=== PATIENT | female | born 1955 | race Caucasian/White ===

== ENCOUNTER 2023-05-06 11:12 | Outpatient (AMB) | payer OTHER, SELFPAY ==
--- NOTE | 2023-05-06 11:32 | HO.SPINEOV ---
Intake Intake Visit Reasons: discuss sx Intake Note: Ms. Ordaz is here today to discuss surgical options. Database Marketing Manager Required: No Allergies codeine Allergy (Unknown, Verified 08/01/16 00:00) iodine Allergy (Unknown, Verified 08/01/16 00:00) Latex Gloves Allergy (Unknown, Uncoded 08/01/16 00:00) seafood Allergy (Unknown, Uncoded 08/01/16 00:00) Assessment & Plan Assessment & Plan (1) Ulnar neuropathy at elbow of left upper extremity: Code(s): G56.22 - Lesion of ulnar nerve, left upper limb Plan Dear Colleague Thank you for referring Enriqueta Ordaz to the office today with a chief complaint of left elbow and hand pain. HPI: This 67-year-old female with MS was previously seen in my old practice, where I diagnosed her with a left ulnar nerve compression confirmed with EMG. Offered her a ulnar nerve decompression. She decided to wait due to the limitations she has with her MS. She returns to my clinic at [place] stating that her symptoms have significantly worsened. Pain radiates from her elbow down to the 4th and 5th digits and the 4th and 5th digits are now numb. On exam: Tinel is negative over the left ulnar groove. There is hypoesthesia of the 4th and 5th digit on the left side. Impression/Plan: This patient is suffering from a progressive ulnar neuropathy from compression at the sulcus ulnaris. I offered her a decompression of the left ulnar nerve. She is scheduled for 06/11/2023. Thank you for allowing me to participate in your patients care. total time spent was 30 minutes in counseling ,coordination of plan, and surgical decision making. Domingo Juárez MD, PhD Spine Fellowship Trained Neurosurgeon Director, [facility] Coding Level of Care Code New Pt Level 3 (61576) Diagnoses Ulnar neuropathy at elbow of left upper extremity G56.22
== END 2023-05-06 12:05 | disposition home or self-care (01) ==
PROVIDERS: PCP Internal Medicine; Visit Provider Neurological Surgery
DX: G56.22 Lesion of ulnar nerve, left upper limb (principal)
CPT/HCPCS: 99203

== ENCOUNTER → 2023-05-06 11:12 | Outpatient (BNVA) | payer OTHER, SELFPAY | PROVIDERS: PCP Internal Medicine; Visit Provider Neurological Surgery ==

== ENCOUNTER 2023-06-11 12:02 | Day surgery (SDC) | payer OTHER, SELFPAY ==
[2023-06-02 15:21] VITALS: BMI 35.9
--- NOTE | 2023-06-04 12:14 | P.CONAN_ITS ---
Documented by User: Meredith Muñoz NP 06/04/23 12:18 HPI - Anesthesia Eval Consult details Narrative: 67yo F for Left Ulna Nerve Decompression MS - mostly wheelchair bound, stand/pivot *DNI* PONV Hx PE, no OAC Stable at last PCP visit 03/2023 Pt was not seen in PAT. Telephone assessment only. PMFSH Active Problems Active Problems: All Active Problems (Updated 06/02/23 @ 15:27 by Apoorva Tinajero RN) Ulnar neuropathy at elbow of left upper extremity (Acute) Past Medical History Medical History History of postoperative nausea and vomiting Hepatitis A Sleep apnea Psoriasis Depression Pulmonary embolism Ulnar nerve compression Multiple sclerosis Elevated cholesterol HTN (hypertension) Surgical History Surgical History Hx of rotator cuff surgery History of surgery Hx of hysterectomy Hx of lumbar discectomy Hx of hand surgery Social History Social History Are you a primary care tech to a significant other at home: No Do you presently have visiting nurse or 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 If so, by whom?: No Are you DNR?: No Advance Directives Information Provided: Yes (advised to bring copies DOS) Advance Directives on File: No Recently lost weight without trying: No Eating poorly because of decreased appetite: No Nutrition Risks: No Nutritional Risk Poor oral hygiene: No Meds Allergies Allergy/AdvReac Type Severity Reaction Status Date / Time iodine Allergy Severe Anaphylaxis Verified 06/11/23 13:13 seafood Allergy Severe Anaphylaxis Verified 06/11/23 13:13 codeine Allergy Intermediate faint/shortness Verified 06/11/23 13:13 of breath hydrocodone Allergy Intermediate faint/shortness Verified 06/11/23 13:13 of breath Latex, Natural Rubber Allergy Intermediate Rash Verified 06/11/23 13:13 measles, mumps, and rubella Allergy Unknown Unknown Verified 06/11/23 13:13 vaccine povidone-iodine Allergy Unknown Blister Verified 06/11/23 13:13 [From Betadine] Home Medications Medication Instructions Recorded Confirmed Last Taken Type amlodipine 10 mg tablet 10 mg PO DAILY 06/02/23 06/11/23 06/11/23 History atorvastatin 40 mg tablet 40 mg PO DAILY 06/02/23 06/11/23 06/10/23 History irbesartan 300 mg tablet 300 mg PO DAILY 06/02/23 06/11/23 06/10/23 History sertraline 100 mg tablet 100 mg PO DAILY 06/02/23 06/11/23 06/10/23 History spironolactone 25 mg tablet 25 mg PO BID 06/02/23 06/11/23 06/10/23 History tralokinumab-ldrm 150 mg/mL 300 mg subcut Q2W 06/02/23 06/11/23 05/29/23 History subcutaneous syringe (Adbry) Exam Exam Date and Time: June 04, 2023 1214 Height,Weight and Vital Signs: Height 5 ft 10 in Weight 113.398 kg Assessment and Plan Assessment Anesthesia Assessment: Chart Reviewed Documented by User: Cassius Levine MD 06/11/23 15:02 HPI - Anesthesia Eval Consult details Narrative: 67yo F for Left Ulna Nerve Decompression MS - mostly wheelchair bound, stand/pivot weakness LE , right more than left . Back pain *DNI* PONV Hx PE, no OAC Stable at last PCP visit 03/2023 Pt was not seen in PAT. Telephone assessment only. [facility] Past Medical History Medical History History of postoperative nausea and vomiting Hepatitis A Sleep apnea Psoriasis Depression Pulmonary embolism Ulnar nerve compression Multiple sclerosis Elevated cholesterol HTN (hypertension) Family History Family history of problems with anesthesia: No Surgical History Surgical History Hx of rotator cuff surgery History of surgery Hx of hysterectomy Hx of lumbar discectomy Hx of hand surgery History of Problems with Anesthesia: No Social History Social History Are you a primary care tech to a significant other at home: No Do you presently have visiting nurse or 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 If so, by whom?: No Are you DNR?: No Advance Directives Information Provided: Yes (advised to bring copies DOS) Advance Directives on File: No Recently lost weight without trying: No Eating poorly because of decreased appetite: No Nutrition Risks: No Nutritional Risk Poor oral hygiene: No Meds Allergies Allergy/AdvReac Type Severity Reaction Status Date / Time iodine Allergy Severe Anaphylaxis Verified 06/11/23 13:13 seafood Allergy Severe Anaphylaxis Verified 06/11/23 13:13 codeine Allergy Intermediate faint/shortness Verified 06/11/23 13:13 of breath hydrocodone Allergy Intermediate faint/shortness Verified 06/11/23 13:13 of breath Latex, Natural Rubber Allergy Intermediate Rash Verified 06/11/23 13:13 measles, mumps, and rubella Allergy Unknown Unknown Verified 06/11/23 13:13 vaccine povidone-iodine Allergy Unknown Blister Verified 06/11/23 13:13 [From Betadine] Home Medications Medication Instructions Recorded Confirmed Last Taken Type amlodipine 10 mg tablet 10 mg PO DAILY 06/02/23 06/11/23 06/11/23 History atorvastatin 40 mg tablet 40 mg PO DAILY 06/02/23 06/11/23 06/10/23 History irbesartan 300 mg tablet 300 mg PO DAILY 06/02/23 06/11/23 06/10/23 History sertraline 100 mg tablet 100 mg PO DAILY 06/02/23 06/11/23 06/10/23 History spironolactone 25 mg tablet 25 mg PO BID 06/02/23 06/11/23 06/10/23 History tralokinumab-ldrm 150 mg/mL 300 mg subcut Q2W 06/02/23 06/11/23 05/29/23 History subcutaneous syringe (Adbry) Exam Airway Mallampati Class: III Loose/Missing/Broken Teeth: Yes Assessment and Plan Assessment Anesthesia Assessment: Anesthesia Plan Discussed Final Anesthetic Review Family History of Problems with Anesthesia: No History of Problems with Anesthesia: No NPO: Yes ASA Class: IV Final Preanesthetic Review: Meds/Allgs Chart Reviewed, Consent Obtained/Reviewed and Anes Risks/Benef Reviewed Patient Risk: Intermediate Procedure Risk: Intermediate Anesthetic Plan Anesthetic Plan: MAC: and Agree w/ Assess. and Plan Disposition: Standard PACU
--- NOTE | 2023-06-11 07:05 | P.HPSUR_ITS ---
Pre-Procedural Eval Section A Date of Service: 06/11/23 Section B Chief Complaint: Lesion of ulnar nerve, left upper limb Allergies: Allergies Allergy/AdvReac Type Severity Reaction Status Date / Time iodine Allergy Severe Anaphylaxis Verified 06/04/23 09:22 seafood Allergy Severe Anaphylaxis Verified 06/04/23 09:22 codeine Allergy Intermediate faint/shortness Verified 06/04/23 09:22 of breath hydrocodone Allergy Intermediate faint/shortness Verified 06/04/23 09:22 of breath Latex, Natural Rubber Allergy Intermediate Rash Verified 06/04/23 09:22 measles, mumps, and rubella Allergy Unknown Unknown Verified 06/04/23 09:22 vaccine povidone-iodine Allergy Unknown Unknown Verified 06/04/23 09:22 [From Betadine] Review of Systems Sugical H&P ROS: Negative: Constitution, Cardiovascular, Respiratory, Neurological, Psychiatric, Hem-Onc, Allergic/Immunologic, Gastrointestinal, Genitourinary, Musculoskeletal, Integumentary, Endocrine and Eyes /Ears/Nose/Throat Exam Surgical H&P Exam: Not Evaluated: HEENT, Not Evaluated: Heart, Not Evaluated: Lungs, Not Evaluated: Extremities, Not Evaluated: Abdomen, Not Evaluated: Skin and Not Evaluated: Neurological Plan Diagnosis/Plan: Unchanged I have reviewed the history and physical and performed a pertinent physical examination on my patient. No changes have occurred unless specified. plan remains the same, left-sided ulna nerve decompression. Time Spent With Patient Time: Total time managing care of this patient today _10___ minutes.
[2023-06-11] MEDS: Lactated Ringers 1,000 ML 100 ML IVCONT (13:23)
[2023-06-11] MEDS: Gabapentin 300 MG CAPSULE PO (13:29)
[2023-06-11] MEDS: methocarbamoL 750 MG TABLET PO (13:29)
[2023-06-11 13:33] VITALS: BP 150/68; PULSE 59; RESP 16; TEMP 36.3; O2SAT 98
--- NOTE | 2023-06-11 13:36 | PC.NURSE ---
Allergy interaction noted for Robaxin and Gabapentin related to Iodine allergy. Per Gretchen [facility] ok to give medications. Dr. Levine notified.
--- NOTE | 2023-06-11 14:37 | PM.DS ---
DS: Providers Provider Date of Service: 06/11/23 Primary care physician: Marlin Valdez MD DS: Summary Time Attestation Discharge coordination time: Less than 30 minutes Quality: Safe Use of Opioids Does Pt have an Active Cancer Diagnosis on the Problem List?: No Quality: Stroke Does the patient have a stroke diagnosis?: No Physical Exam Vital Signs: Vital Signs: Last Vital Signs Temp 97.4 F 06/11/23 13:33 Pulse 59 06/11/23 13:33 Resp 16 06/11/23 13:33 BP 150/68 H 06/11/23 13:33 Pulse Ox 98 06/11/23 13:33 O2 Del Method Room Air 06/11/23 13:33 BMI result Body Mass Index 35.9 Discharge Plan Discharge Patient Disposition: Home, Self-Care Referrals: Marlin Valdez MD [Primary Care Provider] - 1 Week Discharge Medications: New tramadol 50 mg tablet 50 mg PO Q6H PRN (Reason: MODERATE-SEVERE PAIN) Qty: 20 0RF Continued atorvastatin 40 mg tablet 40 mg PO DAILY sertraline 100 mg tablet 100 mg PO DAILY amlodipine 10 mg tablet 10 mg PO DAILY irbesartan 300 mg tablet 300 mg PO DAILY Adbry 150 mg/mL syringe 300 mg subcut Q2W spironolactone 25 mg tablet 25 mg PO BID Discharge Orders: Discharge Order (Routine); Ordered 06/11/23 Ordered By: Wild Story Diet: Advance to usual diet Activity on Discharge: As tolerated Activity Restrictions/Additional Instructions: YOU MAY REMOVE YOUR DAVID WRAP ON POST OP DAY 3, WELL THE DRESSING UNDERNEATH .IT YOU CAN USE YOUR ARM MUCH YOU LIKE, HOWEVER, PLEASE AVOID STRAINING OR HEAVY LIFTING. IT WILL HELP SWELLING IN YOUR ELBOW TO KEEP IT ELEVATED WHEN YOU ARE NOT USING IT. YOU CAN SHOWER ON POST OP DAY 1, BUT PLEASE KEEP WOUND DRY. YOU CAN DRIVE WHEN YOU FEEL COMFORTABLE AND ARE OFF NARCOTICS. IF YOU EXPERIENCE ANY SIGNS OF INFECTION SUCH FEVER, CHILLS OR REDNESS/DISCHARGE FROM YOUR WOUND, PLEASE CALL OFFICE RIGHT AWAY PLEASE CALL THE OFFICE FOR A FOLLOW UP IN 2-3 WEEKS [phone]
[2023-06-11 14:41] VITALS: BP 138/71; PULSE 63; RESP 16; TEMP 36.9; O2SAT 96
--- NOTE | 2023-06-11 14:47 | W.PM.OPN ---
Operative Note Operative Note Date of Service: 06/11/23 Narrative: Diagnosis: left ulnar neuropathy Procedure: left ulnar nerve decompression Surgeon: Domingo Juárez MD PhD Description procedure: This 67-year-old female Is suffering from a left ulnar neuropathy. The patient was offered a decompression of the ulnar nerve. The procedure complications were explained. The patient was consented. He was brought to the operating room, where moderate sedation was applied. Prepping and draping was done followed by time-out. Marcaine was injected. a semicircular incision was made. The dissection was carried on until the ligament was encountered. The ligament was opened and dissected sharply to decompress the underlying ulnar nerve proximally and distally. Significant compression was present. Hemostasis was done. The incision was closed with a 3-0 Vicryl for the subcu toes and subdermal layer.. A compressive DAVID wrap was used for hemostasis. All sponge and needle counts were correct. Patient was transported to the recovery room. Anesthesia: Moderate sedation and local anesthetic Blood loss: Minimal Complications: None Disposition: Discharge home
[2023-06-11 14:55] VITALS: BP 167/80; PULSE 57; RESP 16; O2SAT 96
[2023-06-11] MEDS: Ondansetron ODT 4 MG TAB.RAPDIS TRANSLINGU (14:59)
[2023-06-11 15:10] VITALS: BP 155/87; PULSE 58; RESP 16; TEMP 36.1; O2SAT 95
== END 2023-06-11 15:25 | disposition home or self-care (01) ==
PROVIDERS: PCP Internal Medicine; Visit Provider Neurological Surgery
PROC: (CPT 64718; principal; 2023-06-11 14:20)
DX: G56.22 Lesion of ulnar nerve, left upper limb (principal); M25.522 Pain in left elbow; M79.642 Pain in left hand; R20.1 Hypoesthesia of skin; G35 Multiple sclerosis; Z99.3 Dependence on wheelchair; I10 Essential (primary) hypertension; E78.00 Pure hypercholesterolemia, unspecified; G47.33 Obstructive sleep apnea (adult) (pediatric); Z79.899 Other long term (current) drug therapy; Z86.711 Personal history of pulmonary embolism; Z88.5 Allergy status to narcotic agent; Z91.040 Latex allergy status; Z91.041 Radiographic dye allergy status; Z87.891 Personal history of nicotine dependence
CPT/HCPCS: 64718; J0131; J0690; J2250

== ENCOUNTER → 2023-06-11 12:02 | Outpatient (BNV) | payer OTHER, SELFPAY | PROVIDERS: PCP Internal Medicine; Visit Provider Physician Assistant | DX: G56.22 Lesion of ulnar nerve, left upper limb (principal) | CPT/HCPCS: 64718; 99499 ==

== ENCOUNTER 2023-07-01 10:31 | Outpatient (AMB) | payer OTHER, SELFPAY ==
--- NOTE | 2023-07-01 10:42 | HO.SPINEOV ---
Intake Intake Visit Reasons: 1st post op Intake Note: Mrs. Sushma Bro is here today for her 1st post-op visit. Proj Engineer Required: No Allergies iodine Allergy (Severe, Verified 06/11/23 13:13) Anaphylaxis seafood Allergy (Severe, Verified 06/11/23 13:13) Anaphylaxis codeine Allergy (Intermediate, Verified 06/11/23 13:13) faint/shortness of breath hydrocodone Allergy (Intermediate, Verified 06/11/23 13:13) faint/shortness of breath Latex, Natural Rubber Allergy (Intermediate, Verified 06/11/23 13:13) Rash measles, mumps, and rubella vaccine Allergy (Unknown, Verified 06/11/23 13:13) Unknown povidone-iodine [From Betadine] Allergy (Unknown, Verified 06/11/23 13:13) Blister Assessment & Plan Assessment & Plan (1) Ulnar neuropathy at elbow of left upper extremity: Code(s): G56.22 - Lesion of ulnar nerve, left upper limb (2) S/P decompression of ulnar nerve: Code(s): Z98.890 - Other specified postprocedural states Plan Procedure: Left ulnar nerve decompression Enriqueta comes in today for her 1st postoperative visit. She reports she is very satisfied with the surgery and feels much better than she did preoperatively. She still reports some weakness of her left hand/arm, but reports that his overall better. She inquired today about to return to activity instructions, and reported that she would like to be able to try and pull/push the wheels on her wheelchair again. She was encouraged to try this activity, but to be mindful of her pain/inflammation in to not overdo it. No neurological deficit. Patient is mobile with the use of a wheelchair. Incision site is closed, well healing, with no signs of drainage. We will follow-up with the patient in 6 weeks for her 2nd postoperative visit in order to re-evaluate her left arm function. Wild Juárez MD,PhD [facility] Coding Level of Care Code Global (02562) Diagnoses Ulnar neuropathy at elbow of left upper extremity G56.22 S/P decompression of ulnar nerve Z98.890
== END 2023-07-01 11:11 | disposition home or self-care (01) ==
PROVIDERS: PCP Internal Medicine; Visit Provider Physician Assistant
DX: G56.22 Lesion of ulnar nerve, left upper limb (principal); Z98.890 Other specified postprocedural states
CPT/HCPCS: 99024

== ENCOUNTER → 2023-07-01 10:31 | Outpatient (BNVA) | payer OTHER, SELFPAY | PROVIDERS: PCP Internal Medicine; Visit Provider Physician Assistant ==

== ENCOUNTER 2023-08-12 10:36 | Outpatient (AMB) | payer OTHER, SELFPAY ==
--- NOTE | 2023-08-12 10:45 | MHC.OFFVIS ---
Intake Intake Visit Reasons: 2nd post op Intake Note: PT here for 2nd post op Senior Software Development Manager Required: No Allergies iodine Allergy (Severe, Verified 06/11/23 13:13) Anaphylaxis seafood Allergy (Severe, Verified 06/11/23 13:13) Anaphylaxis codeine Allergy (Intermediate, Verified 06/11/23 13:13) faint/shortness of breath hydrocodone Allergy (Intermediate, Verified 06/11/23 13:13) faint/shortness of breath Latex, Natural Rubber Allergy (Intermediate, Verified 06/11/23 13:13) Rash measles, mumps, and rubella vaccine Allergy (Unknown, Verified 06/11/23 13:13) Unknown povidone-iodine [From Betadine] Allergy (Unknown, Verified 06/11/23 13:13) Blister [facility] Medical History History of postoperative nausea and vomiting Hepatitis A Sleep apnea Psoriasis Depression Pulmonary embolism Ulnar nerve compression Multiple sclerosis Elevated cholesterol HTN (hypertension) Surgical History (Updated 07/01/23 @ 11:12 by LEONEL Mccabe) Hx of rotator cuff surgery History of surgery Hx of hysterectomy Hx of lumbar discectomy Hx of hand surgery Social History Are you a primary care coordination manager to a significant other at home: No Do you presently have 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 She reports she is very satisfied with the surgery and feels much better than she did pre-operatively. She reports he has good articulation with her left hand. She is able to complete the majority of her ADLs. She has no other significant concerns or complaints at this time. She did inquire about having a shunt placed for hydrocephalus, which we discussed with Dr. Juárez. He ended up referring her to [facility] in [place] to have this completed. No neurological deficits, hand portfolio management marketing strength is equal on both sides. Patient is able to ambulate well, rises from a seated position without difficulty. Incision sites are closed, well healing, with no signs of drainage. No need to follow up routinely. The patient may call us if she needs to see us in the future. Wild Juárez MD,PhD [facility] Coding Level of Care Code Global (74187) Diagnoses S/P decompression of ulnar nerve Z98.890
== END 2023-08-12 11:20 | disposition home or self-care (01) ==
PROVIDERS: PCP Internal Medicine; Visit Provider Physician Assistant
DX: Z98.890 Other specified postprocedural states (principal)
CPT/HCPCS: 99024

== ENCOUNTER → 2023-08-12 10:36 | Outpatient (BNVA) | payer OTHER, SELFPAY | PROVIDERS: PCP Internal Medicine; Visit Provider Physician Assistant | DX: Z48.811 Encounter for surgical aftercare following surgery on the nervous system (principal); Z98.890 Other specified postprocedural states | CPT/HCPCS: 99212 ==

== ENCOUNTER 2025-04-07 14:42 | Outpatient (AMB) | payer OTHER, SELFPAY ==
--- OUTSIDE RECORDS SUMMARY | 2025-04-07 14:44 | XMS_ITS | Encounter Summary ---
Author Organization [facility] Address [address] [place] [phone] Phone Care Team Providers Care Blindstitch Hemmer Name Role Phone Marlin Valdez MD Primary Care Pr ovid Reason for Referral * Occupational Therapy (Routine) - Closed Specialty Diagnoses / Procedures Referred By Mirela heart Referred To Contact Occupational Therapy Diagnoses Encounter for rehabilitation System, Provider Not In, [facility] [id number] [place] [address] [address] [place] [address] Phone: tel: Referral ID Status Reason Start Date Expiration Date Visits Re quested Visits Authorized [id number] Closed 03/08/2018 08/09/2018 9 9 Encounter Details Date Type Department Care Team (Latest Contact Info) Description 03/08/2018 Transcribe Orders [facility] [address] [place] [address] Marlin Valdez MD [address] [place] [phone] Encounter for rehabilitation (Primary Dx) Social History Tobacco Use Types Packs/Day Years Used Date Smoking Tobacco: Former Comments Unknown Sex and Gender Information Value Date Recorded Sex Assigned at Not on file Legal Sex Female 5:44 PM EST Gender Identity Not on file Sexual Orientation Not on file documented as of this encounter Plan of Treatment Scheduled Referrals Name Type Priority Associated Diagnoses Orde r Schedule Ambulatory referral to [facility] Occupational Therapy Outpatient Referral Routine Encounter for rehabilitation Ordered: 03/08/2018 documented as of this encounter Visit Diagnoses Diagnosis Encounter for rehabilitation- Primary documented in this encounter Care Teams Blindstitch Hemmer Relationship Specialty Start Date End Date Marlin Valdez MD [address] [place] [address] PCP - General Internal Medicine 12/16/17 documented as of this encounter Additional Source Comments The information contained in this document represents components of the legal health record. It is not the complete legal health record.[facility]
--- OUTSIDE RECORDS SUMMARY | 2025-04-07 14:44 | XMS_ITS | Clinical Summary ---
Author Organization Patient Business Ser [facility] Address [address] [place] [address] Care Team Providers Care Spray Worker Name Role Phone Marlin Valdez MD Primary Care Prov ider Allergies Active Allergy Reactions Criticality Noted Date Comments Codeine 05/04/2013 Other reaction(s): Other (See Comments) swelling of the throat Faint & sob Fish Oil High 03/05/2016 Seafood Throat closes up Hydrocodone-Acetaminophen 03/05/2016 Faint & sob Iodine 03/05/2016 Throat closes up Latex High 09/26/2022 Severe dry rash Povidone-Iodine 01/08/2017 Prednisone Other 10/03/2019 Other reaction(s): OTHER Shellfish Containing Products Anaphylaxis High 03/05/2016 Throat closes up Medications nystatin (MYCOSTATIN) 100,000 unit/gram powder 100,000 application. 3 Active topiramate (TOPAMAX) 50 mg tablet TAKE 2 TABLETS BY MOUTH 2 TIMES A DAY. 360 tablet 1 5 Active irbesartan (AVAPRO) 300 mg tablet TAKE 1 TABLET BY MOUTH EVERY DAY IN THE EVENING 90 tablet 1 5 Active Rinvoq 15 mg tablet extended release 24 hr 5 Active cyanocobalamin (VITAMIN B-12) 1,000 mcg/mL injection Inject 1 mL (1,000 mcg total) into the shoulder, thigh, or buttocks every 30 (thirty) days. 3 mL 1 5 05/30/20 25 Active sodium bicarbonate 650 mg tablet Take 1 tablet (650 mg total) by mouth. 5 01/22/20 26 Active NIFEdipine XL (PROCARDIA XL) 60 mg 24 hr tablet Take 1 tablet (60 mg total) by mouth 1 (one) time each day before breakfast. 90 tablet 1 5 Active EPINEPHrine (EPIPEN) 0.3 mg/0.3 mL injection Inject 0.3 mL (0.3 mg total) into the thigh if needed for anaphylaxis. Inject 0.3 mg into the muscle. Strength: 0.3 mg/0.3 mL 2 each 1 5 Active Dupixent Syringe 300 mg/2 mL syringe 4 Active ergocalciferol (Vitamin D2) 1,250 mcg (50,000 unit) capsule Active atorvastatin (LIPITOR) 40 mg tablet TAKE 1 TABLET BY MOUTH EVERY DAY 90 tablet 1 5 Active sertraline (ZOLOFT) 100 mg tablet TAKE 1 TABLET BY MOUTH 1 TIME EACH DAY. 90 tablet 1 5 Active acetaZOLAMIDE (DIAMOX) 250 mg tablet Take 1 tablet (250 mg total) by mouth 1 (one) time each day for 7 days, THEN 1 tablet (250 mg total) 2 (two) times a day. 107 each 5 05/27/20 25 Active Active Problems Problem Noted Date Diagnosed Date Familial Mediterranean fever ([facility] V24, [facility]/ [facility] V28) 03/08/2025 Low bicarbonate 02/20/2025 Elevated rheumatoid factor 02/20/2025 At high risk for injury related to fall 02/21/20 25 Multiple sclerosis (CMS/HCC V24, [facility] V28) Positive colorectal cancer screening using Colog uard test 05/17/2024 Neurogenic bladder 01/06/2024 Vitamin D deficiency 09/07/2023 Psoriasis 02/24/2023 Bilateral carpal tunnel syndrome 12/31/2021 Degenerative arthritis of lumbar spine 1 Lichen simplex chronicus 10/05/2019 Sprain of thoracic region 11/25/2018 Cervicalgia 11/25/2018 Urinary incontinence 11/16/2018 Incomplete tear of left rotator cuff 10/22/2018 Pruritus of vulva 07/26/2018 Overview (07/06/2024): Last Assessment & Plan: Yeast culture sent to rule this out as an added cause of her discomfort. Atrophy of vulva 06/22/2018 Overview (03/08/2025): Last Assessment & Plan: Can consider topical E2 at future visit following initial follow up for LS therapy. Primary hypertension 06/25/2016 Lichen sclerosus 06/25/2016 Overview (03/08/2025): Perineum Last Assessment & Plan: I discussed with Enriqueta that her symptoms are not going to lu without treatment of her lichen sclerosus, and also likely some component of contact dermatitis and neurogenic pruritis. I strongly recommended that she try tacrolimus ointment as she has previously failed topical steroid therapy. I explained this may burn, but would be important to get the skin healed and under control. I reviewed this with Shannon Levi PA-C in Dermatology who feels it is reasonable to combine this with meds she is already using. I also strongly recommended that she see Urology for consultation to see if maybe we can avoid contact irritation from incontinence by having her perform ISC. She agrees and a referral was placed again. She is aware to call our office if she does not hear about the new topical medication or from referrals for Urology within 1-2 weeks. She was also encouraged to use the Vistaril to help her with itching on the vulva given superimposed LSC will not resolve unless we break the itch scratch cycle. She agreed to try. I reviewed the importance of regular maintenance topical medication use to prevent symptoms, further scarring, and squamous cell cancer of the vulva. I also explained the importance of regular follow up to ensure she has no evidence of precancerous or cancerous changes and that she is not having side effects from her medication. I reviewed areas of application and amount of medication to use. She again voiced understanding and agreed. Edema of lower extremity 09/21/2013 Numbness 05/04/2013 Overview (07/06/2024): Numbness Pins and needles sensation 05/04/2013 Overview (07/06/2024): Tingling Tinnitus 12/09/2012 Vitamin B12 deficiency 08/26/2012 Peripheral neuropathy 07/24/2012 Contact dermatitis 06/10/2012 Overview (03/08/2025): Last Assessment & Plan: Continue to avoid irritants and apply skin barrier to prevent urine from hitting skin when incontinence and in wheelchair. Lumbar disc herniation 06/10/2012 Shoulder joint pain 11/12/2011 Constipation 11/12/2011 Epileptic seizures (CMS/[facility] V24, CMS/[facility] V28) Lichen sclerosus et atrophicus of the vulva 10/2009 Benign essential hypertension 11/15/2008 Obstructive sleep apnea 11/10/2007 Overview (07/06/2024): Sleep medicine services treatment polysomnogram 05/22/2021; weight 275 pounds; BMI 39; CPAP pressure above 14 appeared necessary in supine REM sleep to manage her FRITZ. Recommended trial of CPAP 8-20. Patient last saw Gem in pulmonology on 04/22/2021. Sleep Medicine Services indicated that they will contact the patient to arrange follow-up. Last Assessment & Plan: [facility] 6-16 cm H2O Trigeminal neuralgia 09/08/2007 Depression 09/08/2007 Excessive weight gain 09/08/2007 Irritable bowel syndrome 09/08/2007 Encounters Date Type Department Care Team Description 03/31/2025 11:00 AM EDT Telemedicine [facility] [place] [address] [facility] [address] [place] [phone] Chanda Ashley MD White matter lesion of central nervous system (Primary Dx); Vitamin D deficiency; Vitamin B12 deficiency; Numbness 03/22/2025 Telephone Lung Screening Program - [place] [address] [facility] [address] [place] [phone] Heide Keenan MA 03/08/2025 1:15 PM EDT Consult Pulmonolgy - [place] [address] [facility] [address] [place] [phone] Courtney Whitfield MD SOB (shortness of breath) (Primary Dx); Low bicarbonate; Morbid obesity (CMS/HCC V24, CMS/HCC V28); Multiple sclerosis (CMS/HCC V24, CMS/HCC V28); Obstructive sleep apnea 02/20/2025 11:15 AM EDT Office Visit Adult [address] [phone] Jordan Arredondo PA Multiple sclerosis (CMS/HCC V24, CMS/[facility] V28) (Primary Dx); Elevated rheumatoid factor; Low bicarbonate; SOB (shortness of breath); At high risk for injury related to fall 02/20/2025 Telephone Adult [address] [phone] Jordan Arredondo PA from Last 3 Months Immunizations Name Administration Dates Next Due [employer] SARS-CoV-2 COVID -19, vector-nr, rS-Ad26, preservative free 12/27/2020 Tdap Tetanus diptheria acell ular pertussis (Boostrix; Adacel) 7yo and older 01/22/2021 Surgical History Surgery Date Site/Laterality Comments HYSTERECTOMY PROCEDURE:HYSTERECTOMY KNEE SURGERY PROCEDURE:KNEE SURGERY BILATERAL OOPHORECTOMY PROCEDURE:BILATERAL OOPHORECTOMY ROTATOR CUFF REPAIR PROCEDURE:ROTATOR CUFF REPAIR APPENDECTOMY PROCEDURE:APPENDECTOMY TONSILLECTOMY PROCEDURE:TONSILLECTOMY SECTION 08/10/1984 - 08/09/1985 PROCEDURE: SECTION LUMBAR PUNCTURE 11/2022 PROCEDURE:LUMBAR PUNCTURE OTHER SURGICAL HISTORY 2011 PROCEDURE: ---- OTHER ----; COMMENT: low back L3-S1 OTHER SURGICAL HISTORY 2012 Right PROCEDURE: ---- OTHER ----; COMMENT: rotator cuff repair APPENDECTOMY 1974 PROCEDURE: HISTORICAL APPENDECTOMY OOPHORECTOMY PROCEDURE: HISTORICAL OOPHORECTOMY; COMMENT: one remvoed with hyst due to cyst, other removed 1.5 years later for large benign cyst BREAST BIOPSY PROCEDURE: BX BREAST; PERC NEEDLE CORE W/IMAG GUID BREAST SURGERY Left PROCEDURE: TX UNLISTED PROCEDURE BREAST; COMMENT: lumpectomy benign BREAST SURGERY Right PROCEDURE: TX UNLISTED PROCEDURE BREAST; COMMENT: lumpectomy x 2 HYSTERECTOMY 1984 PROCEDURE: HISTORICAL HYSTERECTOMY; COMMENT: age 28 a weeka fter childbirth for delayed hemorrhage EXPLORATORY LAPAROTOMY 1985, 2x in 1986 OTHER SURGICAL HISTORY 08/10/1984 - 08/09/1985 lower vena cava ligation Medical History Medical History Date Comments Pure hypercholesterolemia DX:Pur e hypercholesterolemia Hypertension DX:Hypertension Lichen sclerosus DX:Lichen scler osus MS (multiple sclerosis) ([facility] V24, [facility] V28) DX:MS (multiple sclerosis) ( [facility]) Psoriasis DX:Psoriasis Circumscribed scleroderma DX:Cir cumscribed scleroderma Neurogenic bladder DX:Neurogenic bladder Contact dermatitis 06/25/2016 DX:Contact de rmatitis Depression 06/25/2016 DX:Depression HTN (hypertension) 06/25/2016 DX:HTN (hyper tension) Multiple sclerosis ([facility] V24, [facility] V28) 06/25/2016 DX:Multiple sclerosis ([facility]); COMMENT: Dr. Churchill Lichen sclerosus 06/25/2016 DX:Lichen scler osus; COMMENT: Perineum DVT (deep venous thrombosis) ([facility] V24, [facility] V28) DX:DVT (deep venous thrombos is) ([facility]) Family history of diabetes m ellitus in father 10/07/2018 DX:Family history of diabete s mellitus in father Incomplete tear of left rotator cuff 10/22/2018 DX:Incomplete tear of left rotator cuff Hyperlipidemia DX:Hyperlipidemi a Positive colorectal cancer s creening using Cologuard test 05/17/2024 DX:Positive colorectal cance r screening using Cologuard test Family History Medical History Relation Name Comments Coronary artery disease Brother 1 Jeffrey Pace maker 04/2024 Diabetes Brother 2 Jeremiah Hyperlipidemia Brother 2 Jeremiah Hypertension Brother 2 Jeremiah Bladder Cancer Father Diabetes Father Heart attack Father Hypertension Father Stroke Maternal Grandfather No Known Problems Maternal Grandmother Coronary artery disease Mother Heart failure Mother Hypertension Mother Hyperthyroidism Mother Diabetes Paternal Grandfather Stroke Paternal Grandmother Diabetes Sister 1 Christy Diabetes Sister 2 Carolina insulin resista nt Breast cancer Neg Hx Colon cancer Neg Hx Multiple sclerosis Neg Hx Ovarian cancer Neg Hx Pancreatic cancer Neg Hx Prostate cancer Neg Hx Uterine cancer Neg Hx Relation Name Status Comments Brother 1 Jeffrey Alive Brother 2 Jeremiah Alive Father Maternal Grandfather Maternal Grandmother Mother (Age 92) Paternal Grandfather Paternal Grandmother Sister 1 Christy Alive Sister 2 Carolina Alive Social History Tobacco Use Types Packs/Day Years Used Date Smoking Tobacco: Former Cigarettes 1.5 60 0 08/10/1959 - 08/10/2019 Smokeless Tobacco: Never Tobacco Cessation:Counseling Given: Not Answered Alcohol Use Standard Drinks/Week Comments No 0 (1 standard drink = 0.6 oz pur e alcohol) Housing Instability Answer Date Recorde d Are you worried that in the next 2 months you may not have stable housing? No 02/19/2025 Food Access & Nutrition Answer Date Rec orded Do you have access to a vari ety of food including fruits and vegetables? Yes 02/19/2025 Access to Healthcare Answer Date Record ed Within the last 3 months, ho w many times did you visit the emergency department for your medical care? 0 02/19/2025 Health Literacy Answer Date Recorded How often do you need to hav e someone help you when you read instructions, pamphlets, or other written material from your doctor or pharmacy? Never 02/19/2025 Caregiver: How often do you need to have someone help you when you read instructions, pamphlets, or other written material from your doctor or pharmacy? Not on file 02/19/2025 Financial Risk Answer Date Recorded How hard is it for you to pa y for the very basics like food, housing, medical care, and air conditioning / heating? Somewhat hard 02/19/2025 Transportation Answer Date Recorded Has the lack of transportati on kept you from meetings, work, or from getting things needed for daily living? No Has the lack of transportati on kept you from medical appointments or from getting medications? No 02/19/2025 Social Isolation Answer Date Recorded How often do you feel lonely or isolated from th ose around you? Rarely 02/19/2025 Food Risk Answer Date Recorded Within the past 12 months we worried whether our food would run out before we got money to buy more. Never true 02/19/2025 Within the past 12 months th e food we bought just didn't last and we didn't have money to get more. Never true 02/19/2025 Dependent Care Answer Date Recorded Do you need help finding or paying for care for your loved ones. For example, children's minister or elderly care for an older adult? No 02/19/2025 Education Answer Date Recorded Do you think completing more education or training, like finishing a GED, going to college, or learning a trade, would be helpful for you? No 02/19/2025 Employment and Income Answer Date Recor ded During the last four weeks, have you been actively looking for work? No 02/19/2025 Living Situation Answer Date Recorded What is your living situation? 0 02/19/2025 Interpersonal Safety Answer Date Record ed Physical Abuse 12/21/2024 Verbal Abuse 12/21/2024 Comments No Sex and Gender Information Value Date Recorded Sex Assigned at Female 03/19/2022 2:50 PM EDT Legal Sex Female 2:41 PM EDT Gender Identity Female 03/19/2022 2:50 PM EDT Sexual Orientation Choose not to disclose 2021 2:50 PM EDT Obstetrics History Last Filed Vital Signs Vital Sign Reading Time Taken Comments Blood Pressure 124/72 03/08/2025 1:14 PM EDT Pulse 76 03/08/2025 1:14 PM EDT Temperature 36.2 C (97.2 F) 03/08/2025 1:14 PM EDT Respiratory Rate 20 03/08/2025 1:14 PM EDT Oxygen Saturation 98% 03/08/2025 1:14 PM EDT Inhaled Oxygen Concentration - - Weight 107 kg (235 lb) 03/08/2025 1:14 PM EDT Height 177.8 cm (5' 10 ) 03/08/2025 1:14 PM EDT Body Mass Index 33.72 03/08/2025 1:14 PM EDT Plan of Treatment Upcoming Encounters Date Type Department Care Team (Late st Contact Info) Description 04/14/2025 11:15 AM EDT Appointment [facility] CT Scan [address] [place] [phone] 04/26/2025 10:45 AM EDT Ancillary Procedure Pulmonolgy [facility] [address] [phone] 05/01/2025 11:00 AM EDT [facility] [address] [phone] Courtney Whitfield MD [address] [place] [phone] 06/06/2025 11:30 AM EDT Office Visit Adult Medicine [facility] [address] [place] [phone] Jordan Arredondo PA [address] [place] [address] Health Maintenance Due Date Last Done Comments Pneumococcal Vaccine: 50+ Years (1 of 1 - PCV) 2007 Zoster Vaccines (1 of 2) 2007 Breast Cancer Screening 08/11/2019 08/11/2017 Hepatitis C Screening 03/19/2022 Medicare Annual Wellness Visit 03/19/2022 Osteoporosis Screening (Bone Density Screening) 03/19/2022 COVID-19 Vaccine (2023-2 5 season) 2024 08/22/2021, 12/27/2020 Influenza Vaccine (#1) 2025 Lung Cancer Screening (Low Dose CT) 04/13/2025 04/13/2024, 04/13/2024, 04/14/2023 Hypertension/CHF/CAD Annual BMP Blood Test 10/21/2025 10/21/2024, 07/06/2024 Social Influencers of Health Screening 02/19/2026 02/19/2025 Falls Risk Assessment 02/20/2026 02/20/2025 , 12/21/2024 Colorectal Cancer Screening: Colonoscopy 12/22/2027 12/21/2024 Cholesterol Screening (Lipid Panel) 10/21/2029 10/21/2024 DTaP,Tdap,and Td Vaccines (2 - Td or Tdap) 01/22/2031 01/22/2021 RSV Immunization Adult Patients (1 - 1-dose 75+ series) 2032 Colorectal Cancer Screening: FIT-DNA (Cologuard) Discontinued 05/03/2024 Depression Screening Completed 03/31/2025 HIB Vaccines Aged Out No longer eligi ble based on patient's age to complete this topic HPV Vaccines Aged Out No longer eligi ble based on patient's age to complete this topic Hepatitis A Vaccines Aged Out No long er eligible based on patient's age to complete this topic Hepatitis B Vaccines Aged Out No long er eligible based on patient's age to complete this topic IPV Vaccines Aged Out No longer eligi ble based on patient's age to complete this topic MMR Vaccines Aged Out No longer eligi ble based on patient's age to complete this topic Meningococcal ACWY Vaccine Aged Out N o longer eligible based on patient's age to complete this topic Meningococcal B Vaccine Aged Out No l onger eligible based on patient's age to complete this topic RSV Immunization Patients Under 20 months Aged Out No longer eligible based on patient's age to complete this topic Varicella Vaccines Aged Out No longer eligible based on patient's age to complete this topic Procedures Procedure Name Priority Date/Time Associated Diagnosis Comments COLONOSCOPY Routine 12/21/2024 11:37 AM EDT Positive colorectal cancer screening using Cologuard test COMPREHENSIVE METABOLIC PANEL Routine 10/21/2024 10:57 AM EDT Immunotherapy Primary hypertension LIPID PANEL WITH REFLEX TO DIRECT LDL Routine 10/21/2024 10:[address] LUNG SCREENING LOW DOSE Routine 04/13/2024 12:18 PM EDT Personal history of nicotine dependence SCR MAMMO BI INCL CAD Routine 08/11/2017 9:10 AM EST Encounter for screening mammogram for malignant neoplasm of breast from Last 3 Months or Most Recently Relevant to Health Maintenance Results * COLONOSCOPY Anesthesia - MAC; [facility] ENDOSCOPY (12/21/2024 11:37 AM EDT) Anatomical Region Laterality Modality Endoscopy 12/21/2024 11:1 3 AM EDT Impressions 12/21/2024 11:36 AM EDT - Hemorrhoids found on perianal exam. - One 3 mm polyp in the sigmoid colon, removed with a jumbo cold forceps. Resected and retrieved. - Three 7 to 8 mm polyps in the transverse colon and in the ascending colon, removed with a cold snare. Resected and retrieved. - The examination was otherwise normal on direct and retroflexion views. Recommendation: - - Discharge patient to home. - High fiber diet. - Continue present medications. - Await pathology results. - Repeat colonoscopy for surveillance based on pathology results. Narrative 12/21/2024 11:36 AM EDT [facility] GI Patient Name: Enriqueta Ordaz Procedure Date: 12/21/2024 11:13 AM Date of : 1955 Age: 69 Gender: Female Note Status: Finalized Attending MD: Jeff Salazar DO, [id number] Procedure Date No Time: 12/21/2024 Procedure: Colonoscopy Indications: Screening for colorectal malignant neoplasm Providers: Jeff Salazar DO Referring MD: Olga Thomson MD Medicines: Monitored Anesthesia Care Complications: No immediate complications. Estimated blood loss: Minimal. Estimated Blood Loss: Estimated blood loss was minimal. Procedure: Pre-Anesthesia Assessment: - - Prior to the procedure, a History and Physical was performed, and patient medications and allergies were reviewed. The patient is competent. The risks and benefits of the procedure and the sedation options and risks were discussed with the patient. All questions were answered and informed consent was obtained. Patient identification and proposed procedure were verified by the physician, the nurse, the anesthesiologist, the section maintainer and the sterile technician in the pre-procedure area in the endoscopy suite. Mental Status Examination: alert and oriented. Airway Examination: normal oropharyngeal airway and neck mobility. Respiratory Examination: clear to auscultation. CV Examination: normal. Prophylactic Antibiotics: The patient does not require prophylactic antibiotics. Prior Anticoagulants: The patient has taken no anticoagulant or antiplatelet agents. ASA Grade Assessment: II - A patient with severe systemic disease. After reviewing the risks and benefits, the patient was deemed in satisfactory condition to undergo the procedure. The anesthesia plan was to use monitored anesthesia care (MAC). Immediately prior to administration of medications, the patient was re-assessed for adequacy to receive sedatives. The heart rate, respiratory rate, oxygen saturations, blood pressure, adequacy of pulmonary ventilation, and response to care were monitored throughout the procedure. The physical status of the patient was re-assessed after the procedure. After I obtained informed consent, the scope was passed under direct vision. Throughout the procedure, the patient's blood pressure, pulse, and oxygen saturations were monitored continuously.The Olympus Pediatric Colonosocpe was introduced through the anus and advanced to the cecum, identified by appendiceal orifice and ileocecal valve. The colonoscopy was performed without difficulty. The patient tolerated the procedure well. The quality of the bowel preparation was good. Findings: Hemorrhoids were found on perianal exam. A few small-mouthed diverticula were found in the sigmoid colon and descending colon. There was no evidence of diverticular bleeding. A 3 mm polyp was found in the sigmoid colon. The polyp was sessile. The polyp was removed with a jumbo cold forceps. Resection and retrieval were complete. Estimated blood loss was minimal. Three sessile polyps were found in the transverse colon and ascending colon. The polyps were 7 to 8 mm in size. These polyps were removed with a cold snare. Resection and retrieval were complete. Verification of patient identification for the specimen was done. Estimated blood loss was minimal. The exam was otherwise without abnormality on direct and retroflexion views. Procedure Code(s): --- Professional --- 81745, Colonoscopy, flexible; with removal of tumor(s), polyp(s), or other lesion(s) by snare technique 68639, 59, Colonoscopy, flexible; with biopsy, single or multiple Diagnosis Code(s): --- Professional --- Z12.11, Encounter for screening for malignant neoplasm of colon K64.9, Unspecified hemorrhoids D12.5, Benign neoplasm of sigmoid colon D12.3, Benign neoplasm of transverse colon (hepatic flexure or splenic flexure) D12.2, Benign neoplasm of ascending colon CPT copyright 2020 [employer]. All rights reserved. The codes documented in this report are preliminary and upon verification lead review may be revised to meet current compliance requirements. JEFF Salazar DO 12/21/2024 11:36:48 AM This report has been signed electronically.Jeff Salazar DO Number of Addenda: 0 Note Initiated On: 12/21/2024 11:13 AM Scope Withdrawal Time: 0 hours 7 minutes 20 seconds Scope In: 11:21:02 AM Scope Out: 11:35:07 AM Endoscopy Department at [facility] - [address] [place] [phone] Procedure Note Jeff Salazar DO - 12/21/2024 [facility] GI Patient Name: Enriqueta Ordaz Procedure Date: 12/21/2024 11:13 AM Date of : 1955 Age: 69 Gender: Female Note Status: Finalized Attending MD: Jeff Salazar DO, [id number] Procedure Date No Time: 12/21/2024 Procedure: Colonoscopy Indications: Screening for colorectal malignant neoplasm Providers: Jeff Salazar DO Referring MD: Olga Thomson MD Medicines: Monitored Anesthesia Care Complications: No immediate complications. Estimated blood loss: Minimal. Estimated Blood Loss: Estimated blood loss was minimal. Procedure: Pre-Anesthesia Assessment: - - Prior to the procedure, a History and Physicalwas performed, and patient medications and allergieswere reviewed. The patient is competent. The risks and benefits of the procedure and the sedation optionsand risks were discussed with the patient. Allquestions were answered and informed consent was obtained. Patient identification and proposed procedure were verified by the physician, the nurse, the anesthesiologist, the section maintainer and thetechnician in the pre-procedure area in the endoscopy suite. Mental Status Examination: alert and oriented.Airway Examination: normal oropharyngeal airway and neck mobility. Respiratory Examination: clear to auscultation. CV Examination: normal. Prophylactic Antibiotics: The patient does not requireprophylactic antibiotics. Prior Anticoagulants: The patient has taken no anticoagulant or antiplatelet agents. ASA Grade Assessment: II - A patient with severesystemic disease. After reviewing the risks and benefits,the patient was deemed in satisfactory condition to undergo the procedure. The anesthesia plan was touse monitored anesthesia care (MAC). Immediately priorto administration of medications, the patient was re-assessed for adequacy to receive sedatives. The heart rate, respiratory rate, oxygen saturations, blood pressure, adequacy of pulmonary ventilation,and response to care were monitored throughout the procedure. The physical status of the patient was re-assessed after the procedure. After I obtained informed consent, the scope was passed under direct vision. Throughout theprocedure, the patient's blood pressure, pulse, and oxygen saturations were monitored continuously.The Olympus Pediatric Colonosocpe was introduced through theanus and advanced to the cecum, identified byappendiceal orifice and ileocecal valve. The colonoscopy was performed without difficulty. The patient tolerated the procedure well. The quality of the bowel preparation was good. Findings: Hemorrhoids were found on perianal exam. A few small-mouthed diverticula were found in the sigmoid colon and descending colon. There was no evidence of diverticular bleeding. A 3 mm polyp was found in the sigmoid colon. Thepolyp was sessile. The polyp was removed with a jumbocold forceps. Resection and retrieval were complete. Estimated blood loss was minimal. Three sessile polyps were found in the transverse colon and ascending colon. The polyps were 7 to 8mm in size. These polyps were removed with a coldsnare. Resection and retrieval were complete. Verificationof patient identification for the specimen was done. Estimated blood loss was minimal. The exam was otherwise without abnormality ondirect and retroflexion views. Procedure Code(s): --- Professional --- 13807, Colonoscopy, flexible; with removal of tumor(s), polyp(s), or other lesion(s) by snare technique 46895, 59, Colonoscopy, flexible; with biopsy,single or multiple Diagnosis Code(s): --- Professional --- Z12.11, Encounter for screening for malignantneoplasm of colon K64.9, Unspecified hemorrhoids D12.5, Benign neoplasm of sigmoid colon D12.3, Benign neoplasm of transverse colon (hepatic flexure or splenic flexure) D12.2, Benign neoplasm of ascending colon CPT copyright 2020 [employer]. All rights reserved. The codes documented in this report are preliminary and upon verification lead reviewmay be revised to meet current compliance requirements. JEFF Salazar DO 12/21/2024 11:36:48 AM This report has been signed electronically.Jeff Salazar DO Number of Addenda: 0 Note Initiated On: 12/21/2024 11:13 AM Scope Withdrawal Time: 0 hours 7 minutes 20 seconds Scope In: 11:21:02 AM Scope Out: 11:35:07 AM Endoscopy Department at [facility] - [address] [place] [id number] IMPRESSION: - Hemorrhoids found on perianal exam. - One 3 mm polyp in the sigmoid colon, removed witha jumbo cold forceps. Resected and retrieved. - Three 7 to 8 mm polyps in the transverse colonand in the ascending colon, removed with a cold snare. Resected and retrieved. - The examination was otherwise normal on directand retroflexion views. Recommendation: - - Discharge patient to home. - High fiber diet. - Continue present medications. - Await pathology results. - Repeat colonoscopy for surveillance based on pathology results. us Olga Thomson MD GI~PROCEDURE ORDERABLES Fin al Result * (ABNORMAL) Lipid panel with reflex to direct LDL (10/21/2024 10:57 AM EDT) Cholesterol 211(H) 0 - 200 mg/dL LAB CHEMISTRY METHOD 10/21/2024 3:37 PM EDT [facility] Triglycerides 179(H) 0 - 150 mg/dL LAB CHEMISTRY METHOD 10/21/2024 3:37 PM EDT [facility] HDL 48 >=40 mg/dL LAB CHEMISTRY METHOD 10/21/2024 3:37 PM EDT [facility] LDL Calculated 127(H) 0 - 100 mg/dL LAB CHEMISTRY METHOD 10/21/2024 3:37 PM EDT [facility] VLDL Cholesterol Martin 35.8 mg/dL LAB CHEMISTRY METHOD 10/21/2024 3:37 PM EDT [facility] Non HDL Chol. (LDL+VLDL) 163(H) <145 mg/dL LAB CHEMISTRY METHOD 10/21/2024 3:37 PM EDT [facility] Chol/HDL Ratio 4.4 0.0 - 4.4 LAB CHEMISTRY METHOD 10/21/2024 3:37 PM EDT [facility] Blood Venous blood specimen / Unknown Venipuncture / Unknown 10/21/2024 10:57 AM EDT 10/21/2024 10:57 AM EDT Jordan CASTANEDA LAB BLOOD ORDERABLES Final Res ult [facility] [address] [place] [address], * (ABNORMAL) Comprehensive metabolic panel (10/21/2024 10:57 AM EDT) Sodium 141 133 - 145 mmol/L LAB CHEMISTRY METHOD 10/21/2024 3:37 PM EDT [facility] Potassium 4.9 3.5 - 5.5 mmol/L LAB CHEMISTRY METHOD 10/21/2024 3:37 PM [facility] Chloride 113(H) 96 - 110 mmol/L LAB CHEMISTRY METHOD 10/21/2024 3:37 PM [facility] CO2 21 21 - 32 mmol/L LAB CHEMISTRY METHOD 10/21/2024 3:37 PM [facility] Anion Gap 7 3 - 11 LAB CHEMISTRY METHOD 10/21/2024 3:37 PM [facility] Glucose 85 70 - 100 mg/dL LAB CHEMISTRY METHOD 10/21/2024 3:37 PM [facility] BUN 27(H) 5 - 25 mg/dL LAB CHEMISTRY METHOD 10/21/2024 3:37 PM [facility] Creatinine 1.29(H) 0.50 - 1.10 mg/dL LAB CHEMISTRY METHOD 10/21/2024 3:37 PM [facility] eGFR 46(L) >=60 mL/min/1. 73m2 LAB CHEMISTRY METHOD 10/21/2024 3:37 PM [facility] Comment:Calculation based on the Chronic Kidney Disease Epidemiology Collaboration (CKD-EPI) equation refit without adjustment for race. BUN/Creatinine Ratio 20.9 LAB CHEMISTRY METHOD 10/21/2024 3:37 PM [facility] Calcium 9.1 8.5 - 10.5 mg/dL LAB CHEMISTRY METHOD 10/21/2024 3:37 PM [facility] AST (SGOT) 12 10 - 42 unit/L LAB CHEMISTRY METHOD 10/21/2024 3:37 PM [facility] ALT (SGPT) 20 10 - 60 unit/L LAB CHEMISTRY METHOD 10/21/2024 3:37 PM [facility] Alkaline Phosphatase 87 42 - 121 unit/L LAB CHEMISTRY METHOD 10/21/2024 3:37 PM [facility] Total Protein 7.4 6.0 - 8.0 g/dL LAB CHEMISTRY METHOD 10/21/2024 3:37 PM EDT [facility] Albumin 3.8 3.2 - 5.0 g/dL LAB CHEMISTRY METHOD 10/21/2024 3:37 PM EDT [facility] Total Bilirubin 0.5 0.0 - 1.4 mg/dL LAB CHEMISTRY METHOD 10/21/2024 3:37 PM EDT [facility] Blood Venous blood specimen / Unknown Venipuncture / Unknown 10/21/2024 10:57 AM EDT 10/21/2024 10:57 AM EDT us Jordan CASTANEDA LAB BLOOD ORDERABLES Final Res ult [facility] [address] [place] [address], * CT LUNG SCREENING LOW DOSE (04/13/2024 12:18 PM EDT) Anatomical Region Laterality Modality Computed Tomogra phy 04/13/2024 11:1 4 AM EDT Narrative 04/13/2024 12:18 PM EDT [facility] Diagnostic Imaging Department [address] [place] [address] Patient: ENRIQUETA MELTON/Age/Sex: 1955 - 68 - F Unit#: [id number] Location/Status: SPDICATLS/REG CLI Mnemonic/Ordering Site: [facility] Ordering Physician: ALEYDA MORAN MD CT Lung Screening Low Dose - 04/13/24 - 1126 Report Status:Signed Chest CT, 04/13/2024 12:02 PM. TECHNIQUE: Low-dose CT of the chest without intravenous contrast administration. Coronal and sagittal reformats and MIP reconstructions were created. Dose length product: 160 mGy-cm. HISTORY: FORMER SMOKER; 48.75 NORBERTO COMPARISON: 04/10/2023. FINDINGS: Lungs/pleura: Airways are clear and normal in caliber. Mild centrilobular emphysema. Stable scattered small pulmonary nodules; the largest is a 5 mm juxtafissural nodule on the left, series 3 image 101. No pleural effusion or pneumothorax. Mediastinum/gabe: No mediastinal mass or lymphadenopathy. No appreciable hilar lymphadenopathy on limited noncontrast evaluation. Vasculature: Mild atherosclerotic calcification. Central pulmonary arteries are upper normal in caliber. Cardiac: Normal heart size. No coronary artery calcification. Chest wall: No mass. There is a 1 cm short axis left axillary lymph node, similar to the prior exam and nonspecific. Limited abdomen: Unremarkable. Bones: Degenerative changes of the spine and shoulders. IMPRESSION: Lung RADS 2. Guidelines recommend repeat low-dose screening CT in 12 months. Dictating Physician: PAYAM RILEY MD Electronically Signed by: PAYAM RILEY MD Dic Date/Time: 04/13/24 1202 Sign date/Time: 04/13/24 1218 Procedure Note Payam Riley MD - 05/25/2024 [facility] Diagnostic Imaging Department [address] [place] [address] [id number] Patient: ENRIQUETA MELTON D.O.B./Age/Sex: 1955 - 68 -F Unit#: [id number] Location/Status: SPDICATLS/REG CLI Mnemonic/Ordering Site: [facility] Ordering Physician: ALEYDA MORAN MD CT Lung Screening Low Dose - 04/13/24 - 1126 Report Status:Signed Chest CT, 04/13/2024 12:02 PM. TECHNIQUE: Low-dose CT of the chest without intravenous contrast administration. Coronal and sagittal reformats and MIP reconstructionswere created. Dose length product: 160 mGy-cm. HISTORY: FORMER SMOKER; 48.75 NORBERTO COMPARISON: 04/10/2023. FINDINGS: Lungs/pleura: Airways are clear and normal in caliber. Mildcentrilobular emphysema. Stable scattered small pulmonary nodules; the largest is a 5mm juxtafissural nodule on the left, series 3 image 101. No pleural effusionor pneumothorax. Mediastinum/gabe: No mediastinal mass or lymphadenopathy. No appreciablehilar lymphadenopathy on limited noncontrast evaluation. Vasculature: Mild atherosclerotic calcification. Central pulmonaryarteries are upper normal in caliber. Cardiac: Normal heart size. No coronary artery calcification. Chest wall: No mass. There is a 1 cm short axis left axillary lymphnode, similar to the prior exam and nonspecific. Limited abdomen: Unremarkable. Bones: Degenerative changes of the spine and shoulders. IMPRESSION: Lung RADS 2. Guidelines recommend repeat low-dose screening CT in 12months. Dictating Physician: PAYAM RILEY MD Electronically Signed by: PAYAM RILEY MD Dic Date/Time: 04/13/24 1202 Sign date/Time: 04/13/24 1218 us Aleyda Moran MD IMG CT PROCEDURES Final Result * SCR MAMMO BI INCL CAD (08/11/2017 9:10 AM EST) Anatomical Region Laterality Modality Radiographic Tavia ging 06/08/2017 1:08 PM EDT Narrative 08/11/2017 12:07 PM EST This is a summary report. The complete report is available in the patient's medical record. If you cannot access the medical record, please contact the sending organization for a detailed fax or copy. Full field digital screening mammography, reviewed with CAD and compared to prior outside studies dating back to 2006. The breasts are composed mostly of fatty tissue. No suspicious mass, architectural distortion or suspicious calcifications are identified. IMPRESSION: : No mammographic evidence of malignancy. BIRADS 1-Negative; N. 5 year breast cancer risk assessment 2.8 % Lifetime breast cancer risk assessment 13.9 % Breast cancer risk category Low (<15%) Procedure Note Kelley Leung, DO - 09/11/2023 This is a summary report. The complete report is available in thepatient's medical record. If you cannot access the medical record, pleasecontact the sending organization for a detailed fax or copy. Full field digital screening mammography, reviewed with CAD and comparedto prior outside studies dating back to 2006. The breasts are composedmostly of fatty tissue. No suspicious mass, architectural distortion orsuspicious calcifications are identified. IMPRESSION: : No mammographic evidence of malignancy. BIRADS 1-Negative; N. 5 year breast cancer risk assessment 2.8 % Lifetime breast cancer risk assessment 13.9 % Breast cancer risk category Low (<15%) Marlin Valdez MD IMG XR PROCEDURES Final Result from Last 3 Months or Most Recently Relevant to Health Maintenance Insurance [employer] Member Subscriber Plan / Payer (Ef fective 2022-Present) Name:Enriqueta Ordaz Relation to Subscriber:Self Name:Enriqueta Ordaz Payer ID:[id number] Group ID:[id number] Type:Not on file Address: [facility] [address] [id number] Care Teams Spray Worker Relationship Specialty Start Date End Date Marlin Valdez MD [address] [place] [id number] PCP - General Internal Medicine 06/10/24
--- OUTSIDE RECORDS SUMMARY | 2025-04-07 14:44 | XMS_ITS | Clinical Summary ---
Author Organization [facility] Address [address] [address] Phone Care Team Providers Care Semiconductor Wafer Inspector Name Role Phone Mariln Valdez MD Primary Care Pr ovider Allergies Active Allergy Reactions Criticality Noted Date Comments Povidone-Iodine 02/18/2018 Codeine Other (See Comments) 05/04/2013 swelling of the throat Iodinated Contrast Media 02/18/2018 Hydrocodone-Acetamino phen 02/18/2018 Medications sertraline (ZOLOFT) 100 MG tablet Take 100 mg by mouth daily. Active lidocaine 5 % ointment Apply topically as needed. Active gabapentin (NEURONTIN) 100 MG capsule Take 100 mg by mouth 3 (three) times a day. Active hydrOXYzine (VISTARIL) 25 MG capsule Take 1 capsule (25 mg total) by mouth nightly as needed for itching. 30 capsule 3 8 Active betamethasone dipropionate 0.05 % ointment Apply topically 2 (two) times a day. 45 g 3 8 Active Active Problems Problem Noted Date Diagnosed Date Numbness 05/04/2013 Overview (09/30/2014): Numbness Pins and needles sensation 05/04/2013 Overview (09/30/2014): Tingling Social History Tobacco Use Types Packs/Day Years Used Date Smoking Tobacco: Former Education Answer Date Recorded Are you interested in more education? Not on benedicto e 12/13/2022 Are you concerned about learning? Not on file 12/13/2022 No 12/13/2022 No 12/13/2022 Digital Access Answer Date Recorded No 01/04/2023 No 01/04/2023 No 01/04/2023 Reliable internet access at home? Not on file 01/04/2023 Device with a working camera? Not on file Comments Unknown Sex and Gender Information Value Date Recorded Sex Assigned at Not on file Legal Sex Female 5:44 PM EST Gender Identity Not on file Sexual Orientation Not on file Last Filed Vital Signs Vital Sign Reading Time Taken Comments Blood Pressure 161/84 05/04/2013 10:43 AM EDT Pulse 75 05/04/2013 10:43 AM EDT Temperature - - Respiratory Rate - - Oxygen Saturation - - Inhaled Oxygen Concentration - - Weight 114.4 kg (252 lb 4.8 oz) 013 10:43 AM EDT Height 177.8 cm (5' 10 ) 05/04/2013 10: 43 AM EDT Body Mass Index 36.2 05/04/2013 10:43 AM EDT Plan of Treatment Health Maintenance Due Date Last Done Comments LIPID PANEL 1955 DEPRESSION SCREENING 1969 SMOKING Hx and SMOKELESS TOB ACCO SCREENING 1970 HEPATITIS C SCREENING 1975 MAMMOGRAM 1997 COLOGUARD 2002 COLONOSCOPY 2002 COLORECTAL CANCER SCREENING 2002 FIT TEST 2002 FOBT 2002 SIGMOIDOSCOPY 2002 VIRTUAL COLONOSCOPY 2002 PNEUMOCOCCAL VACCINES (50+ y ears) (1 of 1 - PCV) 2007 ZOSTER VACCINES (1 of 2) 2007 OSTEOPOROSIS SCREENING INITI AL (ONE-TIME) 2022 COVID-19 VACCINE (2 - 2023-2 5 season) 2024 12/27/2020 Adult Td,Tdap Booster 01/22/2031 01/22/2021 RSV VACCINE (1 - 1-dose 75+ series) 2032 HEPATITIS A VACCINES Aged Out No long er eligible based on patient's age to complete this topic HIB VACCINES Aged Out No longer eligi ble based on patient's age to complete this topic MENINGOCOCCAL VACCINES (ACWY) Aged Out No longer eligible based on patient's age to complete this topic MENINGOCOCCAL VACCINES (B) Aged Out N o longer eligible based on patient's age to complete this topic Medical Devices Not on file Insurance [place] [employer] [place] [employer] [place] [employer] Care Teams Semiconductor Wafer Inspector Relationship Specialty Start Date End Date Marlin Valdez MD [address] [place] [id number] PCP - General Internal Medicine 12/16/17 Additional Source Comments The information contained in this document represents components of the legal health record. It is not the complete legal health record.[facility]
--- OUTSIDE RECORDS SUMMARY | 2025-04-07 14:44 | XMS_ITS ---
[facility] Organization Unknown Care Team Organization Name Specialty Phone Email Start Date End [facility] LOCO RACHEL Primary Care 06/17/2022 03/28/2024
--- OUTSIDE RECORDS SUMMARY | 2025-04-07 14:44 | XMS_ITS | Clinical Summary ---
Author Organization [facility] Address [address] [place] [phone] Phone Care Team Providers Care Scrap Crane Operator Name Role Phone Marlin Valdez MD Primary Care Pr ovider Allergies Active Allergy Reactions Criticality Noted Date Comments Codeine Other (see comments) 05/04/2013 swelling of the throat Other reaction(s): Other (See Comments) swelling of the throat Faint & sob Fish Oil High 03/05/2016 Throat closes up Hydrocodone-Acetaminop hen 03/05/2016 Faint & sob Iodinated Contrast Media 02/18/2018 Iodine 03/05/2016 Throat closes up Latex High 09/26/2022 Severe dry rash Povidone Iodine 01/08/2017 Povidone-Iodine 02/18/2018 Prednisone 10/03/2019 Other reaction(s): OTHER Medications atorvastatin (LIPITOR) 40 MG tablet Take 40 mg by mouth 1 (one) time each day Active carboxymethylce llulose (REFRESH PLUS) 0.5 % solution INSTILL 1 DROP IN BOTH EYES TWICE A DAY. 4 Active Cholecalciferol (Vitamin D3) 125 MCG (5000 UT) capsule Take 1 tablet by mouth in the morning and 1 tablet in the evening. 4 Active clobetasol (TEMOVATE) 0.05 % ointment PLEASE SEE ATTACHED FOR DETAILED DIRECTIONS 4 Active cyanocobalamin (VITAMIN B-12) 1000 MCG/ML injection INJECT 1 ML INTO THE MUSCLE EVERY WEEK X 4 WEEKS THEN EVERY MONTH 4 Active EPINEPHrine (EPIPEN) 0.3 MG/0.3ML injection syringe INJECT 1 PEN (0.3 MG) INTO THE MUSCLE NEEDED FOR ANAPHYLACTIC REACTION 4 Active irbesartan (AVAPRO) 300 MG tablet Take 300 mg by mouth 1 (one) time each day in the evening Active nystatin (MYCOSTATIN) powder 3 Active sertraline (ZOLOFT) 100 MG tablet Take 100 mg by mouth 1 (one) time each day Active spironolactone (ALDACTONE) 25 MG tablet Take 50 mg by mouth 1 (one) time each day in the evening Active topiramate (TOPAMAX SPRINKLE) 25 MG capsule 2 (two) times a day 100mg pm and 50mg am 4 Active Rinvoq 15 MG tablet sustained-relea se 24 hour 5 Active NIFEdipine XL (PROCARDIA XL) 60 MG 24 hr tablet Take 1 tablet (60 mg total) by mouth 1 (one) time each day Do not crush, chew, or split. 90 tablet 3 5 08/13/19 26 Active sodium bicarbonate 650 MG tablet Take 1 tablet (650 mg total) by mouth 1 (one) time each day 90 tablet 3 5 01/22/20 26 Active Active Problems Problem Noted Date Diagnosed Date Vitamin D deficiency 01/06/2024 Essential (primary) hypertension 01/06/2024 Vitamin B12 deficiency 01/06/2024 Neurogenic urinary bladder 01/06/2024 Atrophic vulva 01/06/2024 Multiple sclerosis 01/06/2024 Carpal tunnel syndrome 01/06/2024 Obstructive sleep apnea 01/06/2024 FH: Depression 01/06/2024 Cervicalgia 01/06/2024 Contact dermatitis 01/06/2024 Lichen sclerosus 01/06/2024 Pruritus of vulva 01/06/2024 Lichen simplex chronicus 01/06/2024 Psoriasis 01/06/2024 Pins and needles 05/04/2013 Overview (01/06/2024): Tingling Numbness 05/04/2013 Overview (01/06/2024): Numbness Encounters Date Type Department Care Team Description 01/26/2025 11:30 AM EDT Office Visit [facility] [address] [phone] Jaison Rangel MD Hypertension (Primary Dx); Chronic kidney disease, not otherwise specified; Metabolic acidosis, not otherwise specified from Last 3 Months Social History Tobacco Use Types Packs/Day Years Used Date Smoking Tobacco: Never Assessed Comments Unknown Sex and Gender Information Value Date Recorded Sex Assigned at Not on file Legal Sex Female 10:52 AM EST Gender Identity Not on file Sexual Orientation Not on file Last Filed Vital Signs Vital Sign Reading Time Taken Comments Blood Pressure 112/73 01/26/2025 11:22 AM EDT Pulse 68 01/26/2025 11:22 AM EDT Temperature - - Respiratory Rate - - Oxygen Saturation - - Inhaled Oxygen Concentration - - Weight 109 kg (240 lb) 08/18/2024 1:12 PM EST Height 165.1 cm (5' 5 ) 01/06/2024 3:00 PM EDT Body Mass Index 39.94 01/06/2024 3:00 PM EDT Plan of Treatment Upcoming Encounters Date Type Department Care Team (Late st Contact Info) Description 08/21/2025 2:00 PM EST Office Visit [facility] [address] [phone] Jaison Rangel MD [address] [phone] Health Maintenance Due Date Last Done Comments Breast Cancer Screening 1955 Pneumococcal Vaccine: 50+ Ye ars (1 of 2 - PCV) 1976 Colorectal Cancer Screening: Annual FOBT 2006 Colorectal Cancer Screening: Colonoscopy 2006 Colorectal Cancer Screening: Sigmoidoscopy 2006 Influenza Vaccine (#1) 2025 Hepatitis B Vaccine Aged Out No longe r eligible based on patient's age to complete this topic Procedures Procedure Name Priority Date/Time Associated Diagnosis Comments URINE ALBUMIN / CREATININE RATIO Routine 01/23/2025 11:56 AM EDT RENAL FUNCTION PANEL Routine 01/23/2025 11:56 AM EDT from Last 3 Months Results * Urine Albumin / Creatinine Ratio (01/23/2025 11:56 AM EDT) Creatinine, Ur 62.4 Not Estab. mg/dL [facility] Albumin, Urine <3.0 Not Estab. ug/mL [facility] Albumin/Creatin ine Ratio <5 0 - 29 mg/g creat [facility] Comment: Normal: 0 - 29 Moderately increased: 30 - 300 Severely increased: >300 01/23/2025 11:5 6 AM EDT 01/23/2025 us Jaison Rangel MD LAB URINE ORDERABLES [facility]ul [facility] [address] [place] [address] * (ABNORMAL) Renal Function Panel (01/23/2025 11:56 AM EDT) Glucose 89 70 - 99 mg/dL [facility] BUN 22 8 - 27 mg/dL [facility] Creatinine 1.22(H) 0.57 - 1.00 mg/dL [facility] eGFR CKD-EPI CR 2020 49(L) >59 mL/min/1.7 3 [facility] BUN/Creatinine Ratio 18 12 - 28 [facility] Sodium 141 134 - 144 mmol/L [facility] Potassium 4.8 3.5 - 5.2 mmol/L [facility] Chloride 108(H) 96 - 106 mmol/L [facility] Bicarbonate (CO2) 16(L) 20 - 29 mmol/L [facility] Calcium 9.3 8.7 - 10.3 mg/dL [facility] Albumin 4.3 3.9 - 4.9 g/dL [facility] Phosphorus 3.9 3.0 - 4.3 mg/dL [facility] 01/23/2025 11:5 6 AM EDT 01/23/2025 us Jaison Rangel MD LAB BLOOD ORDERABLES Final Resul t [facility] [address] [place] [address] from Last [address] [place] [address] ([id number]) [employer] [facility] MCR ([id number]) LEONEL PRAJAPATI [phone] Care Teams Scrap Crane Operator Relationship Specialty Start Date End Date Marlin Valdez MD [address] [place] [id number] PCP - General Internal Medicine 01/06/24
--- OUTSIDE RECORDS SUMMARY | 2025-04-07 14:44 | XMS_ITS | Clinical Summary ---
Author Organization [facility] Address [address] [place] [address] Care Team Providers Care Milieu Coordinator Name Role Phone Marlin Valdez MD Primary Care Prov ider Allergies Active Allergy Reactions Criticality Noted Date Comments Codeine 05/04/2013 Other reaction(s): Other (See Comments) swelling of the throat Faint & sob Hydrocodone-Acetaminophen 03/05/2016 Faint & sob Iodine 03/05/2016 Throat closes up Latex High 09/26/2022 Severe dry rash Povidone Iodine 01/08/2017 Prednisone 10/03/2019 Other reaction(s): OTHER Seafood High 03/05/2016 Throat closes up Medications Medication Sig Dispensed Refills Start Date End Date Status sertraline (ZOLOFT) 100 MG tablet Take 1 tablet (100 mg total) by mouth daily. 0 03/10/2022 Active EPINEPHrine 0.3 MG/0.3ML SOSY Inject 0.3 mg into the muscle. 0 01/22/2021 Active irbesartan (AVAPRO) 300 MG tablet Take 1 tablet (300 mg total) by mouth every evening. 0 11/05/2022 Active nystatin (MYCOSTATIN) powder 100,000 application. 0 08/13/2022 Active spironolactone (ALDACTONE) tablet 25 mg Take 1 tablet (25 mg total) by mouth 2 (two) times a day. 0 01/07/2023 Active ergocalciferol (VITAMIN D2) capsule 76937 units Take 1 capsule (50,000 Units total) by mouth 2 (two) times a week on Thursday and at 8PM. 8 capsule 12 08/13/2023 Active carboxymethylcellulos e (REFRESH PLUS) 0.5 % SOLN Place 1 drop into both eyes 2 (two) times a day. 0 10/15/2023 Active cyanocobalamin (VITAMIN B12) 1000 MCG/ML injection Inject 1 mL (1,000 mcg total) into the muscle. 0 09/07/2023 Active Dupixent 300 MG/2ML SOPN subcutaneous injection 0 11/10/2023 Active topiramate (Topamax) 50 MG tablet Take 1 tablet (50 mg total) by mouth 2 (two) times a day. 60 tablet 3 02/09/2024 Active Family History Medical History Relation Name Comments Bladder Cancer Father Diabetes Father Hypertension Father Heart failure Mother Hypertension Mother Multiple sclerosis Neg Hx Relation Name Status Comments Father Mother Social History Tobacco Use Types Packs/Day Years Used Date Smoking Tobacco: Former Cigarettes Q uit: 03/31/2019 Smokeless Tobacco: Never Tobacco Cessation:Counseling Given: Not Answered Alcohol Use Standard Drinks/Week Comments Not Currently 0 (1 standard drink = 0.6 oz pur e alcohol) Sex and Gender Information Value Date Recorded Sex Assigned at Female 02/24/2022 4:04 PM EDT Gender Identity Not on file Sexual Orientation Not on file Job Start Date Occupation Industry Not on file Not on file Not on file Last Filed Vital Signs Vital Sign Reading Time Taken Comments Blood Pressure 148/91 02/09/2024 11:41 AM EDT Pulse 78 02/09/2024 11:41 AM EDT Temperature 35.9 C (96.6 F) 02/09/2024 11:41 AM EDT Respiratory Rate 16 06/22/2023 11:49 AM EST Oxygen Saturation 98% 02/09/2024 11:41 AM EDT Inhaled Oxygen Concentration - - Weight 113.4 kg (250 lb) 11/12/2023 1:18 PM EDT Height 177.8 cm (5' 10 ) 11/12/2023 1:18 PM EDT Body Mass Index 35.87 11/12/2023 1:18 PM EDT Plan of Treatment Health Maintenance Due Date Last Done Comments Hepatitis C Screening 1957 Depression Screening 1969 BMI Counseling 1975 Preventative Health Evaluation 1975 Colon Cancer Screening (Colonoscopy) 2002 Breast Cancer Screening (Mammogram) 2007 Shingrix-Zoster Vaccine (1 of 2) 2007 Fall Risk Assessment 2022 Osteoporosis Screening (DEXA Scan) 2022 Pneumococcal Vaccine (1 of 1 - PCV) 2022 COVID-19 Vaccine (2 - 2023-2 5 season) 2024 12/27/2020 Influenza Vaccine (#1) 2025 DTap / Tdap / Td (2 - Td or Tdap) 01/22/2031 021 RSV Adult > 60+ Yrs or Pregn ant (1 - 1-dose 75+ series) 2032 Hepatitis B Vaccines Aged Out No long er eligible based on patient's age to complete this topic RSV Ped < 20 months Aged Out No longe r eligible based on patient's age to complete this topic Care Teams Milieu Coordinator Relationship Specialty Start Date End Date Marlin Valdez MD PCP - General Internal Medicine 02/24/22
--- NOTE | 2025-04-07 14:54 | HO.SPINEOV ---
Vital Signs 04/07/25 14:57 Height 5 ft 10 in Weight 230 lb BMI 33.0 Intake Visit Reasons: low back pain Intake Note: Ms. Sushma Bro is here today c/o low back pain. Wire Temperer Required: No Allergies iodine Allergy (Severe, Verified 04/07/25 14:58) Anaphylaxis seafood Allergy (Severe, Verified 04/07/25 14:58) Anaphylaxis codeine Allergy (Intermediate, Verified 04/07/25 14:58) faint/shortness of breath hydrocodone Allergy (Intermediate, Verified 04/07/25 14:58) faint/shortness of breath Latex, Natural Rubber Allergy (Intermediate, Verified 04/07/25 14:58) Rash measles, mumps, and rubella vaccine Allergy (Unknown, Verified 04/07/25 14:58) Unknown povidone-iodine (From Betadine) Allergy (Unknown, Verified 04/07/25 14:58) Blister Physical Exam Vital Signs: BMI result Body Mass Index 33.0 Assessment & Plan Assessment & Plan (1) Back pain: Code(s): M54.9 - Dorsalgia, unspecified Category: Medical Plan Mrs Ordaz is here in follow-up. The patient had a history of an ulnar nerve decompression done by Dr. Juárez a few years ago. She is a patient who history of MS who is in a wheelchair. She has had persistent back pain now going on for over a year. She had an MRI done at [facility] in June of last year showing some mild disc degeneration at L4-5. The pain however persist. A localizes in her low back radiates out to the size and some degree down to her sacrum. There is a component of pain radiating toward the left leg as well. She has been going to physical therapy religiously without any relief. She has tried [id number] pain medications, Tylenol, anti-inflammatories etc.. On exam she is in a wheelchair, her arms are functioning that she can move the wheelchair around. Her left lower extremity is quite weak. It has been like this for years. It has not even quite antigravity. I would rate it as 2/5. Right lower extremity is 3/5. Because her MRIs year old I will order a new 1 just to check on things, but if it looks the same this is looking more like a pain management referral situation. Total amount of time spent in this visit was 20 minutes in discussion of symptoms, lumbar imaging results and subsequent plan of care Jordan Juárez MD,PhD [facility] Orders: Orders MR lumbar spine wo con Today M54.9 - Dorsalgia, unspecified Coding Level of Care Code Est Pt Level 3 (94605) Diagnoses Back pain M54.9
[2025-04-07 14:57] VITALS: BMI 33.0
== END 2025-04-07 15:20 | disposition home or self-care (01) ==
LOC: HO.HNS 14:43
PROVIDERS: PCP Internal Medicine; Visit Provider Physician Assistant
DX: M54.9 Dorsalgia, unspecified (principal)
CPT/HCPCS: 99213

== ENCOUNTER → 2025-04-07 14:42 | Outpatient (BNVA) | payer OTHER, SELFPAY | PROVIDERS: PCP Internal Medicine; Visit Provider Physician Assistant | DX: M54.50 Low back pain, unspecified (principal); G35 Multiple sclerosis; Z99.3 Dependence on wheelchair | CPT/HCPCS: 99212 ==

== ENCOUNTER 2025-07-10 12:45 | Outpatient (REF) | payer OTHER, SELFPAY | END 2025-07-10 12:46 | disposition home or self-care (01) | LOC: HO.HKASLDS 12:45 | PROVIDERS: PCP Internal Medicine; Visit Provider Student in an Organized Health Care Education/Training Program | DX: G89.29 Other chronic pain (principal); M54.50 Low back pain, unspecified; L40.9 Psoriasis, unspecified; R76.0 Raised antibody titer; M25.50 Pain in unspecified joint; M06.9 Rheumatoid arthritis, unspecified | CPT/HCPCS: 99202 ==

== ENCOUNTER 2025-07-10 12:45 | Outpatient (AMB) | payer OTHER, SELFPAY ==
[2025-07-10 12:49] VITALS: BP 122/74; PULSE 62; O2SAT 99; BMI 32.3
--- NOTE | 2025-07-10 12:49 | A.OFFVIS_ITS ---
Vital Signs 07/10/25 12:49 Height 5 ft 10 in Weight 225 lb BMI 32.3 BP 122/74 Blood Pressure Location Lt brachial Position Standing Pulse 62 Pulse Source Pulse Oximeter Pulse Oximetry (%) 99 Oxygen Delivery Method Room Air Intake Visit Reasons: RA/New Patient Intake Note: Patient is a new patient, externally referred by LEONEL Shafer, for Rheumatoid arthritis. Technical Product Manager Required: No Allergies iodine Allergy (Severe, Verified 04/07/25 14:58) Anaphylaxis seafood Allergy (Severe, Verified 04/07/25 14:58) Anaphylaxis codeine Allergy (Intermediate, Verified 04/07/25 14:58) faint/shortness of breath hydrocodone Allergy (Intermediate, Verified 04/07/25 14:58) faint/shortness of breath Latex, Natural Rubber Allergy (Intermediate, Verified 04/07/25 14:58) Rash measles, mumps, and rubella vaccine Allergy (Unknown, Verified 04/07/25 14:58) Unknown povidone-iodine (From Betadine) Allergy (Unknown, Verified 04/07/25 14:58) Blister Corticosteroids (Glucocorticoids) Adverse Reaction (Mild, Verified 07/10/25 12:58) Hives HPI Comments Details: 69 YEAR old female with history of MS, lower back pain recently hospitalized for pneumonia in April presenting as a new patient for evaluation for inflammatory arthritis given her worsening of lower back pain and hip pain., She also has psoriasis for past 15 years and is on Rinvoq prescribed by Dermatology at [facility] Dr Johnathan Falk She denies any joint pain in knuckles hands or wrists, no morning stiffness, no active synovitis. no joint swelling stiffness in the feet. She states she has hip pain anteriorly in the groin that is worse and b/l knee pain and b/l shoulders pain. She has surgery in 2011 of the right rotator cuff and partial tear in the left shoulder 5 years ago. Cervical spine has degenerative arthritis on xrays, she had MRI of the lumbar spine for evaluation of her lower back pain and MS done in April 2025 at [facility] , i dont have them available to me i will request these. In terms of blood work she reports an elevated RF. ROS: endorses photosensitivity, painful oral ulcers, no raynauds , no episodes of uveitis, she has dry she has dry mouth, no bloody diarrhea,no recurrent ear infections no enthesitis no dactylitis. FH: sister has psoriaisis Vital signs reviewed Physical Examination CONSTITUITIONAL Patient alert and cooperative. Well appearing and in no apparent painful distress HEENT Conjunctiva and sclera clear. No lymphadenopathy. CHEST/RESPIRATORY SYSTEM Normal respiratory effort and able to speak in complete sentences. Clear to auscultation bilaterally. No crackles, rales, rhonchi, wheezes heard. CARDIAC SYSTEM Regular rate and rhythm. S1 and S2 heard no murmurs. Radial pulses intact bilaterally MSK Patient exhibits weakness all over. No active synovitis noted in the PIPs MCPs or wrists. Patient's senior planner strength is weak. Range of motion of the upper extremities is limited due to rotator cuff tears, strength in the upper extremities 3/5. Patient is in a wheelchair. Patient has limited range of motion in the lower extremities. Strength in the right leg is 2/5 and strength in the left leg is 1/5 she is very weak in the lower extremities. Again no active synovitis noted in any of the lower extremities. I was unable to perform a Magdalene test. She has pinpoint pain in the lower back SKIN No rashes on the elbows, scalp or knees noted today [facility] Medical History (Updated 07/10/25 @ 14:15 by Heidi Davis MD) History of postoperative nausea and vomiting Hepatitis A Sleep apnea Psoriasis Depression Pulmonary embolism Ulnar nerve compression Multiple sclerosis Elevated cholesterol HTN (hypertension) Surgical History Hx of rotator cuff surgery History of surgery Hx of hysterectomy Hx of lumbar discectomy Hx of hand surgery Family History (Updated 07/10/25 @ 13:11 by Kelley Hinsd CMA) Maternal Grandmother Rheumatoid arthritis Father Diabetes Bladder cancer Social History Are you a primary health care technician to a significant other at home: No Do you presently have visiting nurse or other home services: Yes ([facility]) Comment: counts correct Patient Tobacco Use Status: Former Tobacco user Tobacco use type: Cigarette Physical Exam Vital Signs: Last Vital Signs Pulse 62 07/10/25 12:49 BP 122/74 07/10/25 12:49 Pulse Ox 99 07/10/25 12:49 Oxygen Delivery Method Room Air 07/10/25 12:49 BMI result Body Mass Index 32.3 Assessment & Plan Assessment & Plan (1) Back pain: Code(s): M54.9 - Dorsalgia, unspecified Category: Medical Qualifiers: Back pain location: low back pain Chronicity: chronic Back pain laterality: midline Sciatica presence: unspecified whether sciatica present Qualified Code(s): M54.50 - Low back pain, unspecified; G89.29 - Other chronic pain (2) Psoriasis: Code(s): L40.9 - Psoriasis, unspecified Category: Medical Plan 69-year-old female with a history of psoriasis and multiple sclerosis presenting as new patient for evaluating lower back pain and hip pain. She is wheelchair- bound Patient reports that in the past year, she has had worsening of lower back pain and hip pain. She has had MRIs of the lower back and imaging of the hip which are unavailable to me, I will request these from [facility] so that I can review them. Based on her history and physical exam, her lower back pain and hip pain may be either due to degenerative arthritis or inflammatory arthritis like psoriatic arthritis, given that she has a longstanding history of psoriasis and is on JOHN inhibitor for the treatment of her psoriasis. Rheumatoid arthritis is unlikely in her situation given that she does not endorse any joint pain in the hands or wrists. I will complete workup including CBC CMP RF CCP MAU, MAU subset, ESR, CRP, HLA B27. I will also get a set of hand x-rays and wrist x-rays. I am awaiting records from her imaging of her lower back and hip to determine any stigmata of inflammatory arthritis like psoriatic arthritis. Based on the results of the blood work and imaging I will follow up with her in 3 weeks to discuss the results and further management Orders: Orders Comprehensive Met. Panel Today R76.0 - Raised antibody titer Complement C4 Today R76.0 - Raised antibody titer Rheumatoid Factor Today R76.0 - Raised antibody titer Erythrocyte Sedimentation Rate Today R76.0 - Raised antibody titer DNA Double Stranded-Crithidia Today R76.0 - Raised antibody titer HLA B27 Today L40.9 - Psoriasis, unspecified, M54.9 - Dorsalgia, unspecified XR Hand Jermain 2V Today M25.50 - Pain in unspecified joint XR Wrist Jermain 2V Today M25.50 - Pain in unspecified joint Complete Blood Count Auto Diff Today R76.0 - Raised antibody titer Complement C3 Today R76.0 - Raised antibody titer MAU Reflex Titer and Pattern Today R76.0 - Raised antibody titer Cyclic Citrullinated Peptide Today R76.0 - Raised antibody titer C Reactive Protein Today R76.0 - Raised antibody titer Anti DNA DS Antibody Today R76.0 - Raised antibody titer Coding Level of Care Code New Pt Level 4 (84083) Diagnoses Chronic midline low back pain, unspecified whether sciatica present M54.50; G89.29 Back pain location: low back pain Chronicity: chronic Back pain laterality: midline Sciatica presence: unspecified whether sciatica present Psoriasis L40.9
--- OUTSIDE RECORDS SUMMARY | 2025-07-10 16:21 | XMS_ITS | Clinical Summary ---
Author Organization [facility] Address [address] [address] Phone Care Team Providers Care Transmitter Engineer Name Role Phone Marlin Valdez MD Primary [...] 2007 OSTEOPOROSIS SCREENING INITI AL (ONE-TIME) 2022 INFLUENZA VACCINE (#1) 2025 COVID-19 VACCINE (2 - 2024-2 6 season) 2025 12/27/2020 Adult Td,Tdap Booster 01/22/2031 01/22/2021 RSV [...] topic Medical Devices Not on file Insurance Lust have it! [employer] have it[employer] it[employer] [place] [place] [address] [facility] [employer] [facility] [employer] [facility] [employer] Care Teams Transmitter Engineer Relationship Specialty Start Date End Date Marlin Valdez MD [address] [place] [address] PCP - General Internal Medicine 12/16/17 Additional Source Comments The information contained in this document represents components of the legal health record. It is not the complete legal health record.[facility]
--- OUTSIDE RECORDS SUMMARY | 2025-07-10 16:21 | XMS_ITS | Encounter Summary ---
Author Organization [facility] Address [address] [place] [phone] Phone Care Team Providers Care Shipyard Painter Name Role Phone Marlin Valdez MD Primary Care Pr ovid Reason for Referral * Occupational Therapy (Routine) - Closed Specialty Diagnoses / Procedures Referred By Mirela heart Referred To Contact Occupational Therapy Diagnoses Encounter for rehabilitation System, Provider Not In, [facility] [id number] [place] [id number] Phone: tel: Referral ID Status Reason Start Date Expiration Date Visits Re quested Visits Authorized [id number] Closed 03/08/2018 08/09/2018 9 9 Encounter Details Date Type Department Care Team (Latest Contact Info) Description 03/08/2018 Transcribe Orders [facility] [address] [place] [address] Marlin Valdez MD [address] [place] [phone] Encounter for rehabilitation (Primary Dx) Social History [...] Diagnoses Orde r Schedule Ambulatory referral to [facility] Occupational Therapy Outpatient Referral Routine Encounter for rehabilitation Ordered: 03/08/2018 documented as of this encounter Visit Diagnoses Diagnosis Encounter for rehabilitation- Primary documented in this encounter Care Teams Shipyard Painter Relationship Specialty Start Date End Date Marlin Valdez MD [address] [place] [address] PCP - General Internal Medicine 12/16/17 documented as of this encounter Additional Source Comments The information contained in this document represents components of the legal health record. It is not the complete legal health record.[facility]
--- OUTSIDE RECORDS SUMMARY | 2025-07-10 16:22 | XMS_ITS | Encounter Summary ---
Author Organization [facility] Address [address] [place] [address] Care Team Providers Care Field Tax Auditor Name Role Phone Marlin Valdez MD Primary Care Prov ider Encounter Details Date Type Department Care Team (Late st Contact Info) Description 05/26/2025 Results Follow-Up Adult Medicine - [address] [phone] Marlin Valdez MD [address] [place] [id number] Social History Tobacco Use Types Packs/Day Years Used Date Smoking Tobacco: Former Cigarettes 1.5 60 0 08/10/1959 - 08/10/2019 Smokeless Tobacco: Never Alcohol Use Standard Drinks/Week Comments No 0 [...] got money to buy more. Never true 04/27/2025 Within the past 12 months th e food we bought just didn't last and we didn't have money to get more. Never true 04/27/2025 Dependent Care Answer Date Recorded Do you need help finding or paying for care for your loved ones. For example, children's service worker or elderly care for an older adult? [...] Date Recorded What is your living situation? Unrecognized valu e 02/19/2025 Interpersonal Safety Answer Date Record ed Physical Abuse Unrecognized value 04/25/2025 Verbal Abuse Unrecognized value 04/25/2025 Comments No Sex and Gender Information Value Date Recorded Sex Assigned at Female 03/19/2022 2:50 PM EDT Legal Sex Female 2:41 PM EDT Gender Identity Female 03/19/2022 2:50 PM EDT Sexual Orientation Choose not to disclose 2021 2:50 PM EDT documented as of this encounter Plan of Treatment Upcoming Encounters Date Type Department Care Team (Late st Contact Info) Description 08/22/2025 10:45 AM EST Office Visit Pulmonology - [place] [address] [facility] [address] [place] [phone] Tamika Chandler MD [address] [place] [phone] 08/24/2025 4:00 PM EST Office Visit [facility] - [place] [address] [facility] [address] [place] [phone] Chanda Ashley MD [address] [place] [address] 11/16/2025 1:30 PM EDT Office Visit Adult Medicine - [place] [address] [place] [phone] Jordan Arredondo PA [address] [place] [address] documented as of this encounter Visit Diagnoses Not on filedocumented in this encounter Additional Health Concerns Assessment Noted Time PHQ-9 Depression Total Score: 12 025 10:54 AM EDT documented as of this encounter Care Teams Field Tax Auditor Relationship Specialty Start Date End Date Marlin Valdez MD [address] [place] [address] PCP - General Internal Medicine 06/10/24 documented as of this encounter
--- OUTSIDE RECORDS SUMMARY | 2025-07-10 16:22 | XMS_ITS | Clinical Summary ---
Author Organization Patient Business Ser [facility] Address [address] [place] [address] Care Team Providers Care Wrapper Dipper Name Role Phone Marlin Valdez MD Primary [...] Anaphylaxis High 03/05/2016 Throat closes up Medications topiramate (TOPAMAX) 50 mg tablet TAKE 2 TABLETS BY MOUTH 2 TIMES A DAY. 360 tablet 1 08/12/19 25 Active Additional Information Patient taking differently:100 mg oralNightly, Reported on 06/16/2025 Rinvoq 15 mg tablet extended release 24 hr 08/15/19 25 Active sodium bicarbonate 650 mg tablet Take 1 tablet (650 mg total) by mouth. 01/27/20 25 026 Active NIFEdipine XL (PROCARDIA XL) 60 mg 24 hr tablet Take 1 tablet (60 mg total) by mouth 1 (one) time each day before breakfast. 90 tablet 1 02/21/20 25 Active ergocalciferol (Vitamin D2) 1,250 mcg (50,000 unit) capsule Active atorvastatin (LIPITOR) 40 mg tablet TAKE 1 TABLET BY MOUTH EVERY DAY 90 tablet 1 03/07/20 25 Active sertraline (ZOLOFT) 100 mg tablet TAKE 1 TABLET BY MOUTH 1 TIME EACH DAY. 90 tablet 1 03/07/20 25 Active disposable gloves miscIndication s:Neurogenic bladder,Multip le sclerosis 4 Boxes of Gloves to use up to six times a day. To use for life. 4 each 05/05/20 25 Active incontinence pad, liner, disp padIndications :Neurogenic bladder,Multip le sclerosis To use 4 pads a day 120 each 05/05/20 25 Active acetaZOLAMIDE (DIAMOX) 250 mg tablet TAKE 1 TABLET (250 MG TOTAL) BY MOUTH 1 (ONE) TIME EACH DAY FOR 7 DAYS, THEN 1 TABLET (250 MG TOTAL) 2 (TWO) TIMES A DAY. 107 tablet 3 05/22/20 25 025 Active cyanocobalamin (VITAMIN B-12) 1,000 mcg/mL injection INJECT 1 ML (1,000 MCG TOTAL) INTO THE SHOULDER,THIGH ,OR BUTTOCKS EVERY 30 DAYS 06/04/20 25 Active Gavilax 17 gram/dose oral powder TAKE 17 G BY MOUTH 1 (ONE) TIME EACH DAY. HOLD FOR DIARRHEA/LOOSE STOOLS 04/28/20 25 Active EPINEPHrine (EPIPEN) 0.3 mg/0.3 mL injection Inject 0.3 mL (0.3 mg total) into the thigh if needed for anaphylaxis. Inject 0.3 mg into the muscle. Strength: 0.3 mg/0.3 mL 2 each 1 06/16/20 25 Active acetaminophen (TYLENOL) 500 mg tablet Take 1 tablet (500 mg total) by mouth every 6 (six) hours if needed for mild pain for up to 12 doses. 12 tablet 06/28/20 25 Active ibuprofen (ADVIL,MOTRIN) 200 mg tablet Take 1 tablet (200 mg total) by mouth every 6 (six) hours if needed for mild pain for up to 36 doses. 36 tablet 06/28/20 25 Active saccharomyces boulardii (FLORASTOR) 250 mg capsule Take 1 capsule (250 mg total) by mouth 2 (two) times a day. 60 capsule 06/28/20 25 Active nystatin (MYCOSTATIN) 100,000 unit/gram powder 100,000 application. 08/13/19 Discontinued azithromycin (ZITHROMAX) 250 mg tablet Take 2 tablets (500 mg total) by mouth 1 (one) time each day for 1 day, THEN 1 tablet (250 mg total) 1 (one) time each day for 4 days. 6 each 10/22/19 25 Discontinued EPINEPHrine (EPIPEN) 0.3 mg/0.3 mL injection Inject 0.3 mL (0.3 mg total) into the thigh if needed for anaphylaxis. Inject 0.3 mg into the muscle. Strength: 0.3 mg/0.3 mL 2 each 1 02/21/20 25 Discontinued(R eorder) Dupixent Syringe 300 mg/2 mL syringe 07/12/20 Discontinued topiramate (TOPAMAX) 50 mg tablet Take 1 tablet (50 mg total) by mouth 1 (one) time each day. Discontinued azithromycin (ZITHROMAX) 250 mg tablet TAKE 2 TABLETS BY MOUTH TODAY, THEN TAKE 1 TABLET DAILY FOR 4 DAYS DIRECTED 6 tablet 06/12/20 Discontinued cephalexin (KEFLEX) 500 mg capsule Take 1 capsule (500 mg total) by mouth 4 (four) times a day for 5 days. 20 each 06/28/20 25 sulfamethoxazo le-trimethopri m (BACTRIM DS,SEPTRA DS) 800-160 mg per tablet Take 1 tablet by mouth 2 (two) times a day for 5 days. 10 each 06/28/20 25 Active Problems Problem Noted Date Diagnosed Date Abnormal renal function 06/16/2025 Abnormal urinalysis 06/16/2025 Pneumonia 04/25/2025 Familial Mediterranean fever (CMS/HCC V24, CMS/H CC V28) 03/08/2025 Low bicarbonate 02/20/2025 Elevated rheumatoid factor 02/20/2025 At high risk for injury related to fall 02/21/20 Multiple sclerosis 10/21/2024 Positive colorectal cancer screening using Colog uard [...] joint pain 11/12/2011 Constipation 11/12/2011 Epileptic seizures ([facility] V24, [facility] V28) Lichen sclerosus et atrophicus of the [...] Encounters Date Type Department Care Team Description 06/28/2025 1:45 PM EST - 06/28/2025 5:22 PM EST Emergency [facility] Emergency [address] [place] [address] Eugene Wells MD Puncture wound of right breast, initial encounter (Primary Dx); Cellulitis of breast; Facial hematoma, initial encounter; Hip sprain, left, initial encounter; Left hip pain; Hematoma of left thigh, initial encounter Discharge Disposition: Home or Self Care 06/27/2025 Telephone Adult [facility] [address] [place], [place] [phone] Marlin Valdovinos MD 06/16/2025 1:06 PM EST - 06/16/2025 11:59 PM EST Hospital Encounter [facility] Xray [address] [place] [phone] Pneumonia of right lower lobe due to infectious organism Discharge Disposition: Home or Self Care 06/16/2025 12:30 PM EST Lab Draw Station [address] Abnormal urinalysis; Pneumonia of right lower lobe due to infectious organism; Abnormal renal function 06/16/2025 11:30 AM EST Office Visit [address] [phone] Jordan Arredondo PA Pneumonia of right lower lobe due to infectious organism (Primary Dx); Benign essential hypertension; Obstructive sleep apnea; Neurogenic bladder; Multiple sclerosis; Abnormal renal function; Abnormal urinalysis; Metallic taste 06/16/2025 Results Follow-Up [address] [phone] Jordan Arredondo PA 06/09/2025 10:00 AM EDT Ancillary Procedure Pulmonology - [place] [address] [facility] [address] [place] [phone] SOB (shortness of breath) 06/08/2025 Telephone Adult [address] [phone] Marlin Valdovinos MD 05/26/2025 Results Follow-Up [address] [phone] Marlin Valdovinos MD 05/26/2025 Telephone Adult [address] [phone] Marlin Valdovinos MD 05/22/2025 Telephone [facility] [address] [place] [address] Marlin Valdovinos MD 05/16/2025 Telephone [facility] [address] [place] [address] Marlin Valdovinos MD 05/12/2025 Telephone [facility] [address] [place] [address] Marlin Valdovinos MD 05/12/2025 Telephone [facility] [address] [place] [address] Marlin Valdovinos MD 05/12/2025 Telephone [facility] [address] [place] [address] Marlin Valdovinos MD 05/11/2025 Telephone [facility] [address] [place] [address] Marlin Valdovinos MD 05/11/2025 Billing Patient Not Present [facility] [address] [place] [address] Marlin Valdovinos MD Pneumonia due to infectious organism, unspecified laterality, unspecified part of lung (Primary Dx); Multiple sclerosis; Neuromuscular dysfunction of bladder, unspecified; Essential (primary) hypertension; Depression, unspecified depression type; Contact dermatitis, unspecified contact dermatitis type, unspecified trigger 05/09/2025 Telephone [facility] [address] [place] [address] Marlin Valdovinos MD 05/04/2025 Telephone [facility] [address] [place] [address] Marlin Valdovinos MD 05/03/2025 Telephone [facility] [address] [place] [phone] Emmy Hall [place] 05/02/2025 Telephone Adult Medicine - [place] [address] [place] [phone] Marlin Valdovinos MD 04/25/2025 2:39 PM EDT - 04/28/2025 4:52 PM EDT Hospital Encounter [facility] Urology Unit [address] [place] [address] Nabor Martinez MD Kokosadze, Estate, MD Japaridze, Anna, MD Pneumonia (Primary Dx); Pneumonia of right lower lobe due to infectious organism Discharge Disposition: Home-Health Care Svc 04/14/2025 10:50 AM EDT - 04/14/2025 11:59 PM EDT Hospital Encounter [facility] CT Scan [address] [place] [address] Encounter for screening for malignant neoplasm of respiratory organs; Personal history of nicotine dependence Discharge Disposition: Home or Self Care from Last 3 Months Immunizations Immunization Administration Dates Next Due [employer] SARS-CoV-2 COVID -19, vector-nr, rS-Ad26, preservative free 12/27/2020 Tdap Tetanus diptheria acell ular pertussis (Boostrix; Adacel) 7yo and older 06/28/2025,01/22/2021 Surgical History Surgery Date Site/Laterality Comments HYSTERECTOMY PROCEDURE:HYSTERECTOMY KNEE SURGERY PROCEDURE:KNEE SURGERY BILATERAL OOPHORECTOMY PROCEDURE:BILATERAL OOPHORECTOMY ROTATOR CUFF REPAIR PROCEDURE:ROTATOR CUFF REPAIR APPENDECTOMY PROCEDURE:APPENDECTOMY TONSILLECTOMY PROCEDURE:TONSILLECTOMY SECTION 08/10/1984 - 08/09/1985 PROCEDURE: SECTION LUMBAR PUNCTURE 11/2022 PROCEDURE:LUMBAR PUNCTURE OTHER SURGICAL HISTORY 2012 PROCEDURE: ---- OTHER ----; COMMENT: low back L3-S1 OTHER SURGICAL HISTORY 2012 Right PROCEDURE: ---- OTHER ----; COMMENT: rotator cuff repair APPENDECTOMY 1974 PROCEDURE: HISTORICAL APPENDECTOMY OOPHORECTOMY PROCEDURE: HISTORICAL OOPHORECTOMY; COMMENT: one remvoed with hyst due to cyst, other removed 1.5 years later for large benign cyst BREAST BIOPSY PROCEDURE: BX BREAST; PERC NEEDLE CORE W/IMAG GUID BREAST SURGERY Left PROCEDURE: OK UNLISTED PROCEDURE BREAST; COMMENT: lumpectomy benign BREAST SURGERY Right PROCEDURE: OK UNLISTED PROCEDURE BREAST; COMMENT: lumpectomy x 2 HYSTERECTOMY 1984 PROCEDURE: HISTORICAL HYSTERECTOMY; COMMENT: age 28 a weeka fter childbirth for delayed hemorrhage EXPLORATORY LAPAROTOMY 1985, 2x in 1986 OTHER SURGICAL HISTORY 08/10/1984 - 08/09/1985 lower vena cava ligation Medical History Medical History Date Comments Pure hypercholesterolemia DX:Pur e hypercholesterolemia Hypertension DX:Hypertension Lichen sclerosus DX:Lichen scler osus MS (multiple sclerosis) DX:MS (m ultiple sclerosis) ([facility]) Psoriasis DX:Psoriasis Circumscribed scleroderma DX:Cir cumscribed scleroderma Neurogenic bladder DX:Neurogenic bladder Contact dermatitis 06/25/2016 DX:Contact de rmatitis Depression 06/25/2016 DX:Depression HTN (hypertension) 06/25/2016 DX:HTN (hyper tension) Multiple sclerosis 06/25/2016 DX:Multiple s clerosis ([facility]); COMMENT: Dr. Churchill Lichen sclerosus 06/25/2016 DX:Lichen scler osus; COMMENT: Perineum DVT (deep venous thrombosis) ([facility]/HCC V24, [facility]/HCC V28) DX:DVT (deep venous thrombos is) ([facility]) Family history of diabetes m ellitus in [...] Grandmother Sister 1 Christy Alive Sister 2 Vina Alive Social History Tobacco Use Types Packs/Day [...] ed Within the last 3 months, ho maribell many times did you visit the emergency [...] care for your loved ones. For example, early childhood aide classroom or elderly care for an older adult? [...] Reading Time Taken Comments Blood Pressure 124/72 06/28/2025 12:12 PM EST Pulse 69 06/28/2025 12:12 PM EST Temperature 36.7 C (98.1 F) 06/28/2025 12:23 PM EST Respiratory Rate 16 06/28/2025 12:12 PM EST Oxygen Saturation 99% 06/28/2025 12:12 PM EST Inhaled Oxygen Concentration - - Weight 99.8 kg (220 lb) 06/28/2025 12:12 PM EST Height 155.4 cm (5' 1.2 ) 06/28/2025 12:12 PM ES T Body Mass Index 41.3 06/28/2025 12:12 PM EST Plan of Treatment Upcoming Encounters Date Type Department Care Team (Late st Contact Info) Description 08/22/2025 10:45 AM EST Office Visit Pulmonology - [place] [address] [facility] [address] [place] [address] Tamika Chandler MD [address] [place] [phone] 08/24/2025 4:00 PM EST Office Visit [facility] [place] [address] [facility] [address] [place] [address] Chanda Ashley MD [address] [place] [phone] 11/16/2025 1:30 PM EDT Office Visit Adult Medicine - [place] [address] [place] [address] Jordan Arredondo PA [address] [place] [address] Health Maintenance Due Date Last Done Comments Pneumococcal Vaccine: 50+ Years (1 of 1 - PCV) 2007 RSV Immunization Adult Patients (1 - Risk 50-74 years 1-dose series) 2007 Zoster Vaccines (1 of 2) 2007 Breast Cancer Screening 08/11/2019 08/11/2017 Hepatitis C Screening 03/19/2022 Medicare Annual Wellness Visit 03/19/2022 Osteoporosis Screening (Bone Density Screening) 03/19/2022 COVID-19 Vaccine ( - season) 2025 08/22/2021, 12/27/2020 Influenza Vaccine (#1) 2025 Lung Cancer Screening (Low Dose CT) 04/14/2026 04/14/2025, 04/13/2024, 04/13/2024, Additional history exists Social Influencers of Health Screening 04/27/2026 04/27/2025 Falls Risk Assessment 04/28/2026 04/28/2025, 025 Hypertension/CHF/CAD Annual BMP Blood Test 06/16/2026 06/16/2025, 04/28/2025, 04/27/2025, Additional history exists Colorectal Cancer Screening: Colonoscopy 12/22/2027 12/21/2024 Cholesterol Screening (Lipid Panel) 05/25/2030 05/25/2025, 10/21/2024 DTaP,Tdap,and Td Vaccines (3 - Td or Tdap) 06/28/2035 06/28/2025, 01/22/2021 Colorectal Cancer Screening: FIT-DNA (Cologuard) Discontinued 05/03/2024 Depression Screening Completed 06/16/2025 HIB Vaccines Aged Out No longer eligi [...] Procedure Name Priority Date/Time Associated Diagnosis Comments MUSCULOSKELETAL ULTRASOUND Routine 07/03/2025 6:36 PM EST XR FEMUR 2+ VIEWS LEFT STAT 3:49 PM EST XR HIP 2-3 VIEWS LEFT STAT 06/28/2025 3:49 PM EST XR CHEST 2 VIEWS STAT 06/28/2025 3:[address] MAXILLOFACIAL WO CONTRAST STAT 06/28/2025 2:[address] HEAD WO CONTRAST STAT 06/28/2025 2 :29 PM EST XR CHEST 1 VIEW Routine 06/16/2025 1:25 PM EST Pneumonia of right lower lobe due to infectious organism CBC WITH AUTO DIFFERENTIAL Routine 06/16/2025 12:29 PM EST Pneumonia of right lower lobe due to infectious organism Abnormal urinalysis AREVALO URINE CULTURE TUBE Routine 06/16/20 12:29 PM EST Abnormal urinalysis URINALYSIS WITH REFLEX MICROSCOPIC AND CULTURE Routine 06/16/2025 12:29 PM EST Abnormal urinalysis CBC AND DIFFERENTIAL Routine 06/16/2025 12:29 PM EST Pneumonia of right lower lobe due to infectious organism Abnormal urinalysis COMPREHENSIVE METABOLIC PANEL Routine 06/16/2025 12:29 PM EST Pneumonia of right lower lobe due to infectious organism Abnormal renal function URINALYSIS WITH REFLEX MICROSCOPIC AND CULTURE Routine 06/16/2025 12:29 PM EST Abnormal urinalysis PULMONARY FUNCTION TESTING Routine 06/09/2025 11:05 AM EDT SOB (shortness of breath) CBC WITH AUTO DIFFERENTIAL Routine 05/25/2025 8:39 AM EDT Urinary (tract) obstruction AREVALO URINE CULTURE TUBE Routine 05/25/20 8:39 AM EDT Urinary (tract) obstruction URINALYSIS WITH REFLEX MICROSCOPIC AND CULTURE Routine 05/25/2025 8:39 AM EDT Urinary (tract) obstruction LIPID PANEL WITH REFLEX TO DIRECT LDL Routine 05/25/2025 8:39 AM EDT Hypercholesteremia CBC AND DIFFERENTIAL Routine 05/25/2025 8:39 AM EDT Urinary (tract) obstruction URINALYSIS WITH REFLEX MICROSCOPIC AND CULTURE Routine 05/25/2025 8:39 AM EDT Urinary (tract) obstruction CBC WITH AUTO DIFFERENTIAL Routine 04/28/2025 8:07 AM EDT BASIC METABOLIC PANEL Routine 04/28/2025 8:07 AM EDT CBC AND DIFFERENTIAL Routine 04/28/2025 8:07 AM EDT LEGIONELLA ANTIGEN URINE, EIA Routine 04/27/2025 3:26 PM EDT CREATINE KINASE Add-On 04/27/2025 6:54 AM EDT HEPATIC FUNCTION PANEL Add-On 6:54 AM EDT CBC WITH AUTO DIFFERENTIAL Routine 04/27/2025 6:54 AM EDT CBC AND DIFFERENTIAL Routine 04/27/2025 6:54 AM EDT BASIC METABOLIC PANEL Routine 04/27/2025 6:54 AM EDT TROPONIN I HIGH SENSITIVITY Timed 04/26/2025 10:25 PM EDT TROPONIN I HIGH SENSITIVITY Timed 04/26/2025 9:23 PM EDT ECG 12-LEAD STAT 04/26/2025 9:16 PM EDT MR LUMBAR SPINE WO AND W CONTRAST Routine 04/26/2025 6:09 PM EDT BASIC METABOLIC PANEL Routine 04/26/2025 6:14 AM EDT COMPLETE BLOOD COUNT Routine 04/26/2025 6:14 AM EDT AREVALO URINE CULTURE TUBE STAT 04/25/20 6:46 PM EDT URINALYSIS WITH REFLEX MICROSCOPIC AND CULTURE STAT 04/25/2025 6:46 PM EDT URINALYSIS WITH REFLEX MICROSCOPIC AND CULTURE STAT 04/25/2025 6:46 PM EDT CULTURE URINE STAT 04/25/2025 6:46 PM EDT TROPONIN I HIGH SENSITIVITY Timed 04/25/2025 4:26 PM EDT CULTURE BLOOD STAT 04/25/2025 4:26 PM EDT RESPIRATORY VIRUS PANEL MOLECULAR STUDY STAT 04/25/2025 3:37 PM EDT CBC WITH AUTO DIFFERENTIAL STAT 04/25/2025 3:16 PM EDT AMMONIA STAT 04/25/2025 3:16 PM EDT TROPONIN I HIGH SENSITIVITY Timed 04/25/2025 3:16 PM EDT MAGNESIUM STAT 04/25/2025 3:16 PM EDT BASIC METABOLIC PANEL STAT 04/25/2025 3:16 PM EDT CBC AND DIFFERENTIAL STAT 04/25/2025 3:16 PM EDT CULTURE BLOOD STAT 04/25/2025 3:16 PM EDT XR CHEST 2 VIEWS STAT 04/25/2025 12:[address] LUNG SCREENING Routine 04/14/2025 10: 57 AM EDT Encounter for screening for malignant neoplasm of respiratory organs Personal history of nicotine dependence COLONOSCOPY Routine 12/21/2024 11:37 AM EDT Positive colorectal cancer screening using Cologuard test SCR MAMMO BI INCL CAD Routine 08/11/2017 9:10 AM EST Encounter for screening mammogram for malignant neoplasm of breast from Last 3 Months or Most Recently Relevant to Health Maintenance Results * MUSCULOSKELETAL ULTRASOUND (07/03/2025 6:36 PM EST) Eugene Mckeon MD - 07/03/2025 6:36 PM EST Eugene Wells MD 07/03/2025 6:37 PM Bedside Musculoskeletal Ultrasound Date/Time: 07/03/2025 6:36 PM Performed by: Eugene Wells MD Authorized by: Eugene Wells MD Procedure details: Indications: cellulitis Transverse view: Visualized Longitudinal view: Visualized Comments: right breast - no drainable fluid collection, no abscess us Eugene Wells MD IN CLINIC/BEDSIDE ORDERABLE S Final Result * XR Femur 2+ Views Left (06/28/2025 3:49 PM EST) Anatomical Region Laterality Modality Lower Extremities, Femur Left Radiogr aphic Imaging 06/28/2025 4:17 PM EST Impressions 06/28/2025 4:19 PM EST Impression: No evidence of left hip or femur fracture. Telerad LEONEL ([id number]) -------- FINAL REPORT -------- Dictated By: Sharmaine So Dictated Date: 06/28/2025 16:17 ET Assigned Physician: Sharmaine So Reviewed and Electronically Signed By: Sharmaine So Signed Date: 06/28/2025 16:19 ET Workstation ID: [id number] Transcribed By: Self Edit Transcribed Date: 06/28/2025 16:17 ET Narrative 06/28/2025 4:19 PM EST History: Left hip and thigh pain since fall 3 days ago. Findings: An AP view of the pelvis to include both hips, AP and frog-leg lateral views of the left hip and AP and lateral views of the left femur are submitted. The hip joints are well-maintained bilaterally. Femoral head contours are smooth. No acute fracture or dislocation is seen. The left femur is intact. The knee joint, partially imaged, is grossly intact. The pelvic bones are intact. No abnormal widening of the sacroiliac joints is seen. Pelvic surgical clips are noted. Lumbar disc degenerative changes are partially imaged. Procedure Note Sharmaine So MD - 06/28/2025 History: Left hip and thigh pain since fall 3 days ago. Findings: An AP view of the pelvis to include both hips, AP and frog-leg lateralviews of the left hip and AP and lateral views of the left femur aresubmitted. The hip joints are well-maintained bilaterally. Femoral head contours aresmooth. No acute fracture or dislocation is seen. The left femur is intact. The knee joint, partially imaged, is grosslyintact. The pelvic bones are intact. No abnormal widening of the sacroiliac jointsis seen. Pelvic surgical clips are noted. Lumbar disc degenerative changes are partially imaged. IMPRESSION: Impression: No evidence of left hip or femur fracture. Telerad PA ([id number]) -------- FINAL REPORT -------- Dictated By: Sharmaine So Dictated Date: 06/28/2025 16:17 ET Assigned Physician: Sharmaine So Reviewed and Electronically Signed By: Sharmaine So Signed Date: 06/28/2025 16:19 ET Workstation ID: [id number] Transcribed By: Self Edit Transcribed Date: 06/28/2025 16:17 ET us Eugene Wells MD IMG XR PROCEDURES Final Res ult * XR Hip 2-3 Views Left (06/28/2025 3:49 PM EST) Anatomical Region Laterality Modality Lower Extremities, Hip Left Radiograp hic Imaging 06/28/2025 4:17 PM EST Impressions 06/28/2025 4:19 PM EST Impression: No evidence of left hip or femur fracture. Telerad PA ([id number]) -------- FINAL REPORT -------- Dictated By: Sharmaine So Dictated Date: 06/28/2025 16:17 ET Assigned Physician: Sharmaine So Reviewed and Electronically Signed By: Sharmaine So Signed Date: 06/28/2025 16:19 ET Workstation ID: [id number] Transcribed By: Self Edit Transcribed Date: 06/28/2025 16:17 ET Narrative 06/28/2025 4:19 PM EST History: Left hip and thigh pain since fall 3 days ago. Findings: An AP view of the pelvis to include both hips, AP and frog-leg lateral views of the left hip and AP and lateral views of the left femur are submitted. The hip joints are well-maintained bilaterally. Femoral head contours are smooth. No acute fracture or dislocation is seen. The left femur is intact. The knee joint, partially imaged, is grossly intact. The pelvic bones are intact. No abnormal widening of the sacroiliac joints is seen. Pelvic surgical clips are noted. Lumbar disc degenerative changes are partially imaged. Procedure Note Sharmaine So MD - 06/28/2025 History: Left hip and thigh pain since fall 3 days ago. Findings: An AP view of the pelvis to include both hips, AP and frog-leg lateralviews of the left hip and AP and lateral views of the left femur aresubmitted. The hip joints are well-maintained bilaterally. Femoral head contours aresmooth. No acute fracture or dislocation is seen. The left femur is intact. The knee joint, partially imaged, is grosslyintact. The pelvic bones are intact. No abnormal widening of the sacroiliac jointsis seen. Pelvic surgical clips are noted. Lumbar disc degenerative changes are partially imaged. IMPRESSION: Impression: No evidence of left hip or femur fracture. Telerad LEONEL ([id number]) -------- FINAL REPORT -------- Dictated By: Sharmaine So Dictated Date: 06/28/2025 16:17 ET Assigned Physician: Sharmaine So Reviewed and Electronically Signed By: Sharmaine So Signed Date: 06/28/2025 16:19 ET Workstation ID: [id number] Transcribed By: Self Edit Transcribed Date: 06/28/2025 16:17 ET Eugene Wells MD IMG XR PROCEDURES Final Res ult * XR Chest 2 Views (06/28/2025 3:49 PM EST) Only the most recent of2 resultswithin the time period is included. Anatomical Region Laterality Modality Body Radiographic Tavia ging 06/28/2025 4:15 PM EST Impressions 06/28/2025 4:20 PM EST No acute findings. -------- FINAL REPORT -------- Dictated By: Hipolito Riley Dictated Date: 06/28/2025 16:15 ET Assigned Physician: Hipolito Riley Reviewed and Electronically Signed By: Hipolito Riley Signed Date: 06/28/2025 16:20 ET Workstation ID: [id number] Transcribed By: Self Edit Transcribed Date: 06/28/2025 16:15 ET Narrative 06/28/2025 4:20 PM EST PROCEDURE: PA and lateral radiographs of the chest. HISTORY: fall, right breast pain, right breast puncture wound. COMPARISON: 06/16/2025. FINDINGS: Bones appear demineralized. Mild degenerative changes of the spine and shoulders. Lungs, pleural spaces, pulmonary vasculature, and cardiomediastinal contours are normal. Procedure Note Hipolito Riley MD - 06/28/2025 PROCEDURE: PA and lateral radiographs of the chest. HISTORY: fall, right breast pain, right breast puncture wound. COMPARISON: 06/16/2025. FINDINGS: Bones appear demineralized. Mild degenerative changes of the spine andshoulders. Lungs, pleural spaces, pulmonary vasculature, andcardiomediastinal contours are normal. IMPRESSION: No acute findings. -------- FINAL REPORT -------- Dictated By: Hipolito Riley Dictated Date: 06/28/2025 16:15 ET Assigned Physician: Hipolito Riley Reviewed and Electronically Signed By: Hipolito Riley Signed Date: 06/28/2025 16:20 ET Workstation ID: [id number] Transcribed By: Self Edit Transcribed Date: 06/28/2025 16:15 ET Eugene Wells MD IMG XR PROCEDURES Final Res ult * CT Maxillofacial wo Contrast (06/28/2025 2:29 PM EST) Anatomical Region Laterality Modality Head and Neck Computed Tomogra phy 06/28/2025 2:46 PM EST Impressions 06/28/2025 2:49 PM EST No acute fracture. -------- FINAL REPORT -------- Dictated By: Aziza De La Rosa Dictated Date: 06/28/2025 14:46 ET Assigned Physician: Aziza De La Rosa Reviewed and Electronically Signed By: Aziza De La Rosa Signed Date: 06/28/2025 14:49 ET Workstation ID: [id number] Transcribed By: Self Edit Transcribed Date: 06/28/2025 14:46 ET Narrative 06/28/2025 2:[address] MAXILLOFACIAL WO CONTRAST INDICATION: fall COMPARISON: None. TECHNIQUE: Axial Computed Tomographic imaging from the face without administration of intravenous contrast. Additional coronal and sagittal multiplanar reformatted images generated and reviewed. All CT scans at this facility use dose modulation, iterative reconstruction, and/or weight-based dosing when appropriate to reduce radiation dose to as low as reasonably achievable. FINDINGS: Please note that sensitivity of this examination is somewhat diminished by lack of intravenous contrast. BRAIN: No acute abnormality in the visualized portions the brain. ORBITS: No intraorbital pathology identified. PARANASAL SINUSES: Visualized paranasal sinuses are clear. AIRWAY: The nasal cavity, nasopharynx, oral cavity, tongue base, oropharynx, and visualized hypopharynx are clear without mass lesion identified. No significant airway stenosis. SOFT TISSUES: No mass lesion identified. No abscess or focal infectious/inflammatory process is seen. The parotid glands and submandibular glands are unremarkable. No pathologically enlarged, necrotic, or suppurative lymph nodes. BONES: No evidence of acute fracture. No suspicious lytic or blastic lesions identified. No significant focal degenerative disease in the cervical spine. Procedure Note Aziza De La Rosa MD - 06/28/2025 CT MAXILLOFACIAL WO CONTRAST INDICATION: fall COMPARISON: None. TECHNIQUE: Axial Computed Tomographic imaging from the face without administration ofintravenous contrast. Additional coronal and sagittal multiplanarreformatted images generated and reviewed. All CT scans at this facility use dose modulation, iterativereconstruction, and/or weight-based dosing when appropriate to reduceradiation dose to as low as reasonably achievable. FINDINGS: Please note that sensitivity of this examination is somewhat diminished bylack of intravenous contrast. BRAIN: No acute abnormality in the visualized portions the brain. ORBITS: No intraorbital pathology identified. PARANASAL SINUSES: Visualized paranasal sinuses are clear. AIRWAY: The nasal cavity, nasopharynx, oral cavity, tongue base,oropharynx, and visualized hypopharynx are clear without mass lesionidentified. No significant airway stenosis. SOFT TISSUES: No mass lesion identified. No abscess or focalinfectious/inflammatory process is seen. The parotid glands andsubmandibular glands are unremarkable. No pathologically enlarged,necrotic, or suppurative lymph nodes. BONES: No evidence of acute fracture. No suspicious lytic or blasticlesions identified. No significant focal degenerative disease in thecervical spine. IMPRESSION: No acute fracture. -------- FINAL REPORT -------- Dictated By: Aziza De La Rosa Dictated Date: 06/28/2025 14:46 ET Assigned Physician: Aziza De La Rosa Reviewed and Electronically Signed By: Aziza De La Rosa Signed Date: 06/28/2025 14:49 ET Workstation ID: [id number] Transcribed By: Self Edit Transcribed Date: 06/28/2025 14:46 ET Eugene Wells MD IM CT PROCEDURES Final Res ult * CT Head wo Contrast (06/28/2025 2:29 PM EST) Anatomical Region Laterality Modality Head and Neck Computed Tomogra phy 06/28/2025 2:43 PM EST Impressions 06/28/2025 2:45 PM EST No acute intracranial abnormality. -------- FINAL REPORT -------- Dictated By: Aziza De La Rosa Dictated Date: 06/28/2025 14:43 ET Assigned Physician: Aziza De La Rosa Reviewed and Electronically Signed By: Aziza De La Rosa Signed Date: 06/28/2025 14:45 ET Workstation ID: [id number] Transcribed By: Self Edit Transcribed Date: 06/28/2025 14:43 ET Narrative 06/28/2025 2:45 PM EST PROCEDURE: HEAD CT INDICATION: fall TECHNIQUE: CT of the head without intravenous contrast. Multiplanar reformats. The examination was performed utilizing dose reduction techniques. Total DLP 1766 COMPARISON: No priors available. FINDINGS: No acute territorial infarct, mass effect, or intracranial hemorrhage. Mild scattered periventricular and subcortical white matter hypodensities are most likely related to chronic small vessel ischemic change. No hydrocephalus. Visualized paranasal sinuses are clear. Mastoid air cells are clear. No calvarial fracture. Procedure Note Aziza De La Rosa MD - 06/28/2025 PROCEDURE: HEAD CT INDICATION: fall TECHNIQUE: CT of the head without intravenous contrast. Multiplanarreformats. The examination was performed utilizing dose reductiontechniques. Total DLP 1766 COMPARISON: No priors available. FINDINGS: No acute territorial infarct, mass effect, or intracranial hemorrhage. Mild scattered periventricular and subcortical white matter hypodensitiesare most likely related to chronic small vessel ischemic change. No hydrocephalus. Visualized paranasal sinuses are clear. Mastoid air cells are clear. No calvarial fracture. IMPRESSION: No acute intracranial abnormality. -------- FINAL REPORT -------- Dictated By: Aziza De La Rosa Dictated Date: 06/28/2025 14:43 ET Assigned Physician: Aziza De La Rosa Reviewed and Electronically Signed By: Aziza De La Rosa Signed Date: 06/28/2025 14:45 ET Workstation ID: [id number] Transcribed By: Self Edit Transcribed Date: 06/28/2025 14:43 ET us Eugene Wells MD IMG CT PROCEDURES Final Res ult * XR Chest 1 View (06/16/2025 1:25 PM EST) Anatomical Region Laterality Modality Body Radiographic Tavia ging 06/16/2025 1:27 PM EST Impressions 06/16/2025 1:28 PM EST Resolution of the previously demonstrated right basilar opacity. -------- FINAL REPORT -------- Dictated By: Triston Osborne Dictated Date: 06/16/2025 13:27 ET Assigned Physician: Triston Osborne Reviewed and Electronically Signed By: Triston Osborne Signed Date: 06/16/2025 13:28 ET Workstation ID: [id number] Transcribed By: Self Edit Transcribed Date: 06/16/2025 13:27 ET Narrative 06/16/2025 1:28 PM EST EXAMINATION: CHEST CLINICAL INFORMATION: Pneumonia COMPARISON: Frontal view 04/25/25 TECHNIQUE: Frontal sitting view of the chest FINDINGS: Mild rotation to the right. The cardiac size gabe and vasculature are within normal limits. The previously demonstrated opacity at the right base medially has resolved. No new suspicious abnormality. There is biapical thickening without underlying bone destruction. Chronic widening of the right AC joint. Procedure Note Triston Osborne MD - 06/16/2025 EXAMINATION: CHEST CLINICAL INFORMATION: Pneumonia COMPARISON: Frontal view 04/25/25 TECHNIQUE: Frontal sitting view of the chest FINDINGS: Mild rotation to the right. The cardiac size gabe and vasculature are within normal limits. The previously demonstrated opacity at the right base medially hasresolved. No new suspicious abnormality. There is biapical thickening withoutunderlying bone destruction. Chronic widening of the right AC joint. IMPRESSION: Resolution of the previously demonstrated right basilar opacity. -------- FINAL REPORT -------- Dictated By: Triston Osborne Dictated Date: 06/16/2025 13:27 ET Assigned Physician: Triston Osborne Reviewed and Electronically Signed By: Triston Osborne Signed Date: 06/16/2025 13:28 ET Workstation ID: [id number] Transcribed By: Self Edit Transcribed Date: 06/16/2025 13:27 ET Jordan CASTANEDA IMG XR PROCEDURES Final Result * Urinalysis with reflex microscopic and culture (06/16/2025 12:29 PM EST) Only the most recent of3 resultswithin the time period is included. Specific [place] Urine 1.020 1.003 - 1.030 LAB URINALYSIS - AUTOMATED METHOD 06/16/2025 2:51 PM [facility] pH, Urine 6.5 5.0 - 8.0 pH LAB URINALYSIS - AUTOMATED METHOD 06/16/2025 2:51 PM [facility] Leukocytes, Urine Negative Negative LAB URINALYSIS - AUTOMATED METHOD 06/16/2025 2:51 PM [facility] Nitrite, Urine Negative Negative LAB URINALYSIS - AUTOMATED METHOD 06/16/2025 2:51 PM [facility] Protein, Urine Negative <=Trace mg/dL LAB URINALYSIS - AUTOMATED METHOD 06/16/2025 2:51 PM [facility] Glucose, Urine Negative Negative mg/dL LAB URINALYSIS - AUTOMATED METHOD 06/16/2025 2:51 PM [facility] Ketones, Urine Negative Negative mg/dL LAB URINALYSIS - AUTOMATED METHOD 06/16/2025 2:51 PM [facility] Urobilinogen, Urine 1.0 0.2 - 1.0 mg/dL LAB URINALYSIS - AUTOMATED METHOD 06/16/2025 2:51 PM [facility] Bilirubin, Urine Negative Negative LAB URINALYSIS - AUTOMATED METHOD 06/16/2025 2:51 PM [facility] Blood, Urine Negative Negative LAB URINALYSIS - AUTOMATED METHOD 06/16/2025 2:51 PM [facility] Urine Urine specimen obtained by clean catch procedure / Unknown Non-blood Collection / Unknown 06/16/2025 12:29 PM EST 06/16/2025 12:29 PM EST Jordan CASTANEDA LAB URINE ORDERABLES Final Res ult Performing Organization Address [facility] Co de Phone Number [facility] [address] [place] [address], [place] [phone] * Arevalo urine culture tube (06/16/2025 12:29 PM EST) Only the most recent of3 resultswithin the time period is included. Extra Tube Hold for add-ons. 06/16/2025 6:01 PM [facility] Comment:Auto resulted. Urine Urine specimen obtained by clean catch procedure / Unknown Non-blood Collection / Unknown 06/16/2025 12:29 PM EST 06/16/2025 12:29 PM EST Jordan CASTANEDA LAB URINE ORDERABLES Final Res ult Performing Organization Address [facility]/ZIP Co de Phone Number [facility] [address] [place] [address], [place] [phone] * (ABNORMAL) CBC auto differential (06/16/2025 12:29 PM EST) Only the most recent of5 resultswithin the time period is included. WBC 4.7(L) 4.8 - 10.8 K/[facility] LAB HEMETOLOGY METHOD 06/16/2025 3:07 PM [facility] RBC 4.00 3.80 - 4.80 M/mcL LAB HEMETOLOGY METHOD 06/16/2025 3:07 PM [facility] Hemoglobin 12.3 11.5 - 16.0 g/dL LAB HEMETOLOGY METHOD 06/16/2025 3:07 PM [facility] Hematocrit 37.0 35.0 - 47.0 % LAB HEMETOLOGY METHOD 06/16/2025 3:07 PM [facility] MCV 93.7 79.0 - 98.0 FL LAB HEMETOLOGY METHOD 06/16/2025 3:07 PM [facility] MCH 31.1 27.0 - 32.0 pcg LAB HEMETOLOGY METHOD 06/16/2025 3:07 PM [facility] MCHC 33.2 32.0 - 37.0 g/dL LAB HEMETOLOGY METHOD 06/16/2025 3:07 PM [facility] RDW 13.6 11.0 - 15.0 % LAB HEMETOLOGY METHOD 06/16/2025 3:07 PM [facility] Platelets 183 130 - 400 K/mcL LAB HEMETOLOGY METHOD 06/16/2025 3:07 PM [facility] MPV 11.3(H) 7.0 - 11.0 FL LAB HEMETOLOGY METHOD 06/16/2025 3:07 PM [facility] NRBC 0.0 <1.0 % LAB HEMETOLOGY METHOD 06/16/2025 3:07 PM [facility] NRBC Absolute 0.00 <0.10 K/mcL LAB HEMETOLOGY METHOD 06/16/2025 3:07 PM [facility] Neutrophils Relative 54.3 % LAB HEMETOLOGY METHOD 06/16/2025 3:07 PM [facility] Lymphocytes Relative 35.7 % LAB HEMETOLOGY METHOD 06/16/2025 3:07 PM [facility] Monocytes Relative 7.6 % LAB HEMETOLOGY METHOD 06/16/2025 3:07 PM [facility] Eosinophils Relative 1.3 % LAB HEMETOLOGY METHOD 06/16/2025 3:07 PM [facility] Basophils Relative 1.1 % LAB HEMETOLOGY METHOD 06/16/2025 3:07 PM [facility] Immature Granulocytes Relative 0.0 % LAB HEMETOLOGY METHOD 06/16/2025 3:07 PM [facility] Neutrophils Absolute 2.57 1.50 - 7.00 K/mcL LAB HEMETOLOGY METHOD 06/16/2025 3:07 PM [facility] Lymphocytes Absolute 1.69 1.00 - 5.00 K/mcL LAB HEMETOLOGY METHOD 06/16/2025 3:07 PM [facility] Monocytes Absolute 0.36 0.20 - 1.00 K/mcL LAB HEMETOLOGY METHOD 06/16/2025 3:07 PM [facility] Eosinophils Absolute 0.06 0.00 - 0.50 K/mcL LAB HEMETOLOGY METHOD 06/16/2025 3:07 PM [facility] Basophils Absolute 0.05 0.00 - 0.20 K/mcL LAB HEMETOLOGY METHOD 06/16/2025 3:07 PM [facility] Immature Granulocytes Absolute 0.00 0.00 - 0.03 K/mcL LAB HEMETOLOGY METHOD 06/16/2025 3:07 PM [facility] Blood Venous blood specimen / Unknown Venipuncture / Unknown 06/16/2025 12:29 PM EST 06/16/2025 12:29 PM EST Jordan CASTANEDA LAB BLOOD ORDERABLES Final Res ult [facility] [address] [place] [address], * (ABNORMAL) Comprehensive metabolic panel (06/16/2025 12:29 PM EST) Sodium 141 133 - 145 mmol/L LAB CHEMISTRY METHOD 06/16/2025 3:19 PM EST [facility] Potassium 4.2 3.5 - 5.5 mmol/L LAB CHEMISTRY METHOD 06/16/2025 3:19 PM [facility] Chloride 115(H) 96 - 110 mmol/L LAB CHEMISTRY METHOD 06/16/2025 3:19 PM [facility] CO2 22 21 - 32 mmol/L LAB CHEMISTRY METHOD 06/16/2025 3:19 PM [facility] Anion Gap 4 3 - 11 LAB CHEMISTRY METHOD 06/16/2025 3:19 PM [facility] Glucose 93 70 - 100 mg/dL LAB CHEMISTRY METHOD 06/16/2025 3:19 PM [facility] BUN 22 5 - 25 mg/dL LAB CHEMISTRY METHOD 06/16/2025 3:19 PM [facility] Creatinine 1.24(H) 0.50 - 1.10 mg/dL LAB CHEMISTRY METHOD 06/16/2025 3:19 PM [facility] eGFR 48(L) >=60 mL/min/1. 73m2 LAB CHEMISTRY METHOD 06/16/2025 3:19 PM [facility] Comment:Calculation based on the Chronic Kidney Disease Epidemiology Collaboration (CKD-EPI) equation refit without adjustment for race. BUN/Creatinine Ratio 17.7 LAB CHEMISTRY METHOD 06/16/2025 3:19 PM [facility] Calcium 8.7 8.5 - 10.5 mg/dL LAB CHEMISTRY METHOD 06/16/2025 3:19 PM [facility] AST (SGOT) 15 10 - 42 unit/L LAB CHEMISTRY METHOD 06/16/2025 3:19 PM [facility] ALT (SGPT) 32 10 - 60 unit/L LAB CHEMISTRY METHOD 06/16/2025 3:19 PM [facility] Alkaline Phosphatase 92 42 - 121 unit/L LAB CHEMISTRY METHOD 06/16/2025 3:19 PM [facility] Total Protein 7.1 6.0 - 8.0 g/dL LAB CHEMISTRY METHOD 06/16/2025 3:19 PM [facility] Albumin 4.0 3.2 - 5.0 g/dL LAB CHEMISTRY METHOD 06/16/2025 3:19 PM [facility] Total Bilirubin 0.6 0.0 - 1.4 mg/dL LAB CHEMISTRY METHOD 06/16/2025 3:19 PM [facility] Blood Venous blood specimen / Unknown Venipuncture / Unknown 06/16/2025 12:29 PM EST 06/16/2025 12:29 PM EST Jordan CASTANEDA LAB BLOOD ORDERABLES Final Res ult [facility] [address] [place] [address], * Pulmonary function testing: Carbon Monoxide Diffusing Capacity, Flow Volume Loop, Helium Dilution Lung Volumes, MIP/MEP, Pulmonary Stress Test, 6 min walk, Spirometry with Bronchodilator, Vital Capacity Test, Spirometry (06/09/2025 11:05 AM EDT) Impressions Courtney Whitfield MD - 06/09/2025 11:05 AM EDT Spirometry. Spirometry done today reveals FEV1 of 3.16 which is 107% of the predicted value FVC is 3.64 which is 95% of the predicted value, FEV1 to FVC ratio is 114% of the predicted value, there is no bronchodilator response. Flow-volume is consistent with normal pattern. Static lung volumes are either within normal limit or reduced. Diffusion lung capacity is moderately reduced after correction for alveolar volume. This study is consistent with normal spirometry and lung volume however there is actually reduction in diffusion lung capacity for which clinical correlation is recommended. us Courtney Whitfield MD PFT ORDERABLES Final Result * Lipid panel with reflex to direct LDL (05/25/2025 8:39 AM EDT) Cholesterol 134 0 - 200 mg/dL LAB CHEMISTRY METHOD 05/25/2025 12:50 PM EDT [facility] Triglycerides 108 0 - 150 mg/dL LAB CHEMISTRY METHOD 05/25/2025 12:50 PM EDT [facility] HDL 67 >=40 mg/dL LAB [facility] LDL Calculated 45 0 - 100 mg/dL LAB CHEMISTRY METHOD 05/25/2025 12:50 PM EDT [facility] Comment:Estimated LDL Calcul ated using equation: Total cholesterol - HDL cholesterol - (Triglycerides/5) VLDL Cholesterol Martin 21.6 mg/dL LAB CHEMISTRY METHOD 05/25/2025 12:50 PM EDT [facility] Non HDL Chol. (LDL+VLDL) 67 <145 mg/dL LAB CHEMISTRY METHOD 05/25/2025 12:50 PM EDT [facility] Chol/HDL Ratio 2.0 0.0 - 4.4 LAB CHEMISTRY METHOD 05/25/2025 12:50 PM T [facility] Blood Venous blood specimen / Unknown Venipuncture / Unknown 05/25/2025 8:39 AM EDT 05/25/2025 8:39 AM EDT us Marlin Valdez MD LAB BLOOD ORDERABL ES Final Result [facility] [address] [place] [address], [place] [phone] * (ABNORMAL) Basic metabolic panel (04/28/2025 8:07 AM EDT) Only the most recent of4 resultswithin the time period is included. Sodium 144 133 - 145 mmol/L LAB CHEMISTRY METHOD 04/28/2025 9:[address] [facility] Potassium 3.9 3.5 - 5.5 mmol/L LAB CHEMISTRY METHOD 04/28/2025 9:[address] [facility] Chloride 116(H) 96 - 110 mmol/L LAB CHEMISTRY METHOD 04/28/2025 9:[address] [facility] CO2 23 21 - 32 mmol/L LAB CHEMISTRY METHOD 04/28/2025 9:[address] [facility] Anion Gap 5 3 - 11 LAB CHEMISTRY METHOD 04/28/2025 9:[address] [facility] Glucose 98 70 - 100 mg/dL LAB CHEMISTRY METHOD 04/28/2025 9:[address] [facility] BUN 13 5 - 25 mg/dL LAB CHEMISTRY METHOD 04/28/2025 9:[address] [facility] Creatinine 0.90 0.50 - 1.10 mg/dL LAB CHEMISTRY METHOD 04/28/2025 9:[address] [facility] eGFR 70 >=60 mL/min/1. 73m2 LAB CHEMISTRY METHOD 04/28/2025 9:[address] [facility] Comment:Calculation based on the Chronic Kidney Disease Epidemiology Collaboration (CKD-EPI) equation refit without adjustment for race. BUN/Creatinine Ratio 14.4 LAB CHEMISTRY METHOD 04/28/2025 9:[address] [facility] Calcium 8.5 8.5 - 10.5 mg/dL LAB CHEMISTRY METHOD 04/28/2025 9:[address] [facility] Blood Venous blood specimen / Unknown Venipuncture / Unknown 04/28/2025 8:07 AM EDT 04/28/2025 8:34 AM EDT Aminah Rojas MD LAB BLOOD ORDERABLES Final Res ult Performing Organization Address City/[facility]/ZIP Co de Phone Number [facility] [address] [place] [address], [place] [phone] * Legionella antigen urine, EIA (04/27/2025 3:26 PM EDT) Pathologist [facility] Legionella Antigen, Ur Negative Negative 04/27/2025 4:44 PM EDT [facility] Urine Urine specimen from urethra / Unknown Non-blood Collection / Unknown 04/27/2025 3:26 PM EDT 04/27/2025 4:03 PM EDT Narrative [facility] - 04/27/2025 4:44 PM EDT Negative for Legionella pneumophilia serogroup 1 antigen. This presumptive result suggests no current or recent infection due to L. pneumophilia serogroup 1. Culture is recommended if Legionella infection is till suspected, as other serogroups and species of Legionella are not detected by this test. Aminah Rojas MD LAB URINE ORDERABLES Final Res ult Performing Organization Address [facility] Co de Phone Number [facility] [address] [place] [address], [place] [phone] * (ABNORMAL) Creatine kinase (04/27/2025 6:54 AM EDT) Pathologist [facility] Total CK 366(H) 22 - 269 unit/L LAB CHEMISTRY METHOD 04/27/2025 10:40 AM EDT [facility] Blood Venous blood specimen / Unknown Venipuncture / Unknown 04/27/2025 6:54 AM EDT 04/27/2025 7:05 AM EDT Aminah Rojas MD LAB BLOOD ORDERABLES Final Res ult Performing Organization Address City/[facility]/ZIP Co de Phone Number [facility] [address] [place] [address], [place] [phone] * (ABNORMAL) Hepatic function panel (04/27/2025 6:54 AM EDT) Total Protein 5.5(L) 6.0 - 8.0 g/dL LAB CHEMISTRY METHOD 04/27/2025 10:40 AM EDT [facility] Albumin 2.6(L) 3.2 - 5.0 g/dL LAB CHEMISTRY METHOD 04/27/2025 10:40 AM EDT [facility] Total Bilirubin 0.3 0.0 - 1.4 mg/dL LAB CHEMISTRY METHOD 04/27/2025 10:40 AM EDT [facility] Bilirubin, Direct 0.1 0.0 - 0.3 mg/dL LAB CHEMISTRY METHOD 04/27/2025 10:40 AM EDT [facility] Bilirubin, Indirect 0.2 0.0 - 1.1 mg/dL LAB CHEMISTRY METHOD 04/27/2025 10:40 AM EDT [facility] ALT (SGPT) 20 10 - 60 unit/L LAB CHEMISTRY METHOD 04/27/2025 10:40 AM EDT [facility] AST (SGOT) 22 10 - 42 unit/L LAB CHEMISTRY METHOD 04/27/2025 10:40 AM EDT [facility] Alkaline Phosphatase 57 42 - 121 unit/L LAB CHEMISTRY METHOD 04/27/2025 10:40 AM EDT [facility] Blood Venous blood specimen / Unknown Venipuncture / Unknown 04/27/2025 6:54 AM EDT 04/27/2025 7:05 AM EDT us Aminah Rojas MD LAB BLOOD ORDERABLES Final Res ult [facility] [address] [place] [address], [place] [phone] * Troponin I high sensitivity (NOW and then in 1 hour) (04/26/2025 10:25 PM EDT) Only the most recent of4 resultswithin the time period is included. [facility] High Sensitivity Troponin I 23 <=54 ng/L LAB CHEMISTRY METHOD 04/26/2025 10:55 PM EDT [facility] Blood Venous blood specimen / Unknown Venipuncture / Unknown 04/26/2025 10:25 PM EDT 04/26/2025 10:29 PM EDT Narrative [facility] - 04/26/2025 10:55 PM EDT High levels of biotin in samples may falsely decrease hsTroponin values. Use caution when interpreting hsTroponin results in patients taking biotin who exhibit renal impairment (eGFR <60) or in patients taking more than 20 mg/day of biotin. Janet CASTANEDA LAB BLOOD ORDERABLES Final Resu lt [facility] [address] [place] [address], [place] [phone] * ECG 12 lead (04/26/2025 9:16 PM EDT) [facility] Ventricular Rate ECG 75 BPM [facility] Atrial Rate 75 BPM GEMUSE P-R Interval 122 ms GEMUSE QRS Duration 98 ms GEMUSE Q-T Interval 424 ms GEMUSE QTc 473 ms GEMUSE P Wave Krebs 53 degrees GEMUSE R Krebs -35 degrees GEMUSE T Krebs 41 degrees GEMUSE ECG Interpretation Normal sinus rhythm Left axis deviation Moderate voltage criteria for LVH, may be normal variant Nonspecific T wave abnormality Prolonged QT Abnormal ECG When compared with ECG of 27-NOV-2022 12:37, T wave inversion no longer evident in Inferior leads QT has lengthened Confirmed by Sadie ALVES JAMES ([id number]) on 04/27/2025 1:04:20 PM [facility] 04/26/2025 9:16 PM EDT 04/27/2025 1:04 PM EDT us Mayra Aguirre MD ECG ORDERABLES Final Result [facility] * MR Lumbar Spine wo and w Contrast (04/26/2025 6:09 PM EDT) Anatomical Region Laterality Modality L-spine, Spine Magnetic Resonan ce 04/26/2025 7:04 PM EDT Impressions 04/26/2025 7:04 PM EDT Multilevel degenerative changes. This document has been electronically signed by: Hola De Luna MD on 04/26/2025 19:04:24 Narrative 04/26/2025 7:04 PM EDT INDICATION: MS history, worsening LE edema and lower back pain, fever MR lumbar spine with and without gadolinium Comparison: MR/OK/SR - MR L SPINE WO CONTRAST - 06/27/24 13:36 EST Findings: Normal alignment. No acute fracture or pathologic bone lesion. Cauda equina and conus medullaris within normal limits. Multilevel degenerative changes. Paraspinous musculature intact. Incidental note made of a left renal cyst measuring 1.4 cm. Procedure Note Hola De Luna MD - 04/26/2025 INDICATION: MS history, worsening LE edema and lower back pain, fever MR lumbar spine with and without gadolinium Comparison: MR/OK/SR - MR L SPINE WO CONTRAST - 06/27/24 13:36 EST Findings: Normal alignment. No acute fracture or pathologic bone lesion. Cauda equina and conus medullaris within normal limits. Multilevel degenerative changes. Paraspinous musculature intact. Incidental note made of a left renal cyst measuring 1.4 cm. IMPRESSION: Multilevel degenerative changes. This document has been electronically signed by: Hola De Luna MD on 04/26/2025 19:04:24 us Aminah Rojas MD IMG MRI PROCEDURES Final Resul t * (ABNORMAL) Complete blood count (04/26/2025 6:14 AM EDT) WBC 6.5 4.8 - 10.8 K/[facility] LAB HEMETOLOGY METHOD 04/26/2025 7:[address] [facility] [facility] RBC 3.30(L) 3.80 - 4.80 M/mcL LAB HEMETOLOGY METHOD 04/26/2025 7:[address] [facility] Hemoglobin 10.5(L) 11.5 - 16.0 g/dL LAB HEMETOLOGY METHOD 04/26/2025 7:[address] [facility] Hematocrit 30.6(L) 35.0 - 47.0 % LAB HEMETOLOGY METHOD 04/26/2025 7:[address] [facility] MCV 93.9 79.0 - 98.0 FL LAB HEMETOLOGY METHOD 04/26/2025 7:[address] [facility] MCH 32.2(H) 27.0 - 32.0 pcg LAB HEMETOLOGY METHOD 04/26/2025 7:[address] [facility] MCHC 34.3 32.0 - 37.0 g/dL LAB HEMETOLOGY METHOD 04/26/2025 7:[address] [facility] RDW 13.2 11.0 - 15.0 % LAB HEMETOLOGY METHOD 04/26/2025 7:[address] [facility] Platelets 112(L) 130 - 400 K/mcL LAB HEMETOLOGY METHOD 04/26/2025 7:[address] [facility] MPV 11.9(H) 7.0 - 11.0 FL LAB HEMETOLOGY METHOD 04/26/2025 7:[address] [facility] NRBC 0.0 <1.0 % LAB HEMETOLOGY METHOD 04/26/2025 7:[address] [facility] NRBC Absolute 0.00 <0.10 K/mcL LAB HEMETOLOGY METHOD 04/26/2025 7:[address] [facility] Blood Venous blood specimen / Unknown Venipuncture / Unknown 04/26/2025 6:14 AM EDT 04/26/2025 7:07 AM EDT Cyn CASTANEDA LAB BLOOD ORDERABLES Final Resul t Performing Organization Address City/[facility]/ZIP Co de Phone Number [facility] [address] [place] [address], [place] [phone] * Culture urine (04/25/2025 6:46 PM EDT) Culture, Urine 50,000-99,000 CFU/mL Mixed urogenital william, no uropathogens present. Suggest repeat specimen if clinically indicated. 04/27/2025 11:16 AM EDT [facility] Urine Urine specimen obtained by clean catch procedure / Unknown Non-blood Collection / Unknown 04/25/2025 6:46 PM EDT 04/25/2025 8:27 PM EDT Mayra Aguirre MD LAB MICROBIOLOGY - GENERAL ORDER LORETTA Final Result Performing Organization Address [facility]/ZIP Co de Phone Number [facility] [address] [place] [address], [place] [phone] * Blood Culture, Peripheral Draw #1 (04/25/2025 4:26 PM EDT) Only the most recent of2 resultswithin the time period is included. Culture, Blood No growth at 5 days LAB MICROBIOLOGY METHOD 04/30/2025 5:01 PM EDT [facility] Blood Venous blood specimen / Unknown Venipuncture / Unknown 04/25/2025 4:26 PM EDT 04/25/2025 4:38 PM EDT Mayra Aguirre MD LAB MICROBIOLOGY - GENERAL ORDER LORETTA Final Result Performing Organization Address City/[facility]/ZIP Co de Phone Number [facility] [address] [place] [address], * Respiratory virus panel molecular study (04/25/2025 3:37 PM EDT) [facility] Adenovirus Detection by PCR Not Detected Not Detected LAB MICROBIOLOGY METHOD 04/25/2025 4:59 PM EDT [facility] Influenza A PCR Not Detected Not Detected LAB MICROBIOLOGY METHOD 04/25/2025 4:59 PM EDT [facility] Influenza B PCR Not Detected Not Detected LAB MICROBIOLOGY METHOD 04/25/2025 4:59 PM EDT [facility] Coronavirus 229E Not Detected Not Detected LAB MICROBIOLOGY METHOD 04/25/2025 4:59 PM EDT [facility] Coronavirus HKU1 Not Detected Not Detected LAB MICROBIOLOGY METHOD 04/25/2025 4:59 PM EDT [facility] Coronavirus OC43 Not Detected Not Detected LAB MICROBIOLOGY METHOD 04/25/2025 4:59 PM EDT [facility] Coronavirus NL63 Not Detected Not Detected LAB MICROBIOLOGY METHOD 04/25/2025 4:59 PM EDT [facility] Parainfluenza Virus 1 Not Detected Not Detected LAB MICROBIOLOGY METHOD 04/25/2025 4:59 PM EDT [facility] Parainfluenza Virus 2 Not Detected Not Detected LAB MICROBIOLOGY METHOD 04/25/2025 4:59 PM EDT [facility] Parainfluenza Virus 3 Not Detected Not Detected LAB MICROBIOLOGY METHOD 04/25/2025 4:59 PM EDT [facility] Parainfluenza Virus 4 Not Detected Not Detected LAB MICROBIOLOGY METHOD 04/25/2025 4:59 PM EDT [facility] RSV PCR Not Detected Not Detected LAB MICROBIOLOGY METHOD 04/25/2025 4:59 PM EDT [facility] Human Metapneumovirus A and B Not Detected Not Detected LAB MICROBIOLOGY METHOD 04/25/2025 4:59 PM EDT [facility] Rhinovirus/Entero virus Not Detected Not Detected LAB MICROBIOLOGY METHOD 04/25/2025 4:59 PM EDT [facility] Bordetella pertussis Not Detected Not Detected LAB MICROBIOLOGY METHOD 04/25/2025 4:59 PM EDT [facility] Bordetella parapertussis Not Detected Not Detected LAB MICROBIOLOGY METHOD 04/25/2025 4:59 PM EDT [facility] Mycoplasma pneumo by PCR Not Detected Not Detected LAB MICROBIOLOGY METHOD 04/25/2025 4:59 PM EDT [facility] Chlamydia pneumoniae Not Detected Not Detected LAB MICROBIOLOGY METHOD 04/25/2025 4:59 PM EDT [facility] SARS COV-2 Not Detected Not Detected LAB MICROBIOLOGY METHOD 04/25/2025 4:59 PM EDT [facility] Swab Both anterior nares / Unknown Non-blood Collection / Unknown 04/25/2025 3:37 PM EDT 04/25/2025 3:55 PM EDT [facility] - 04/25/2025 4:59 PM EDT Testing was performed using the [employer] Respiratory Pathogen PCR Assay. All results must be correlated with the clinical findings. Results should not be used as the sole basis for diagnosis. False Negative results may occur from the presence of sequence variants in the region targeted by the assay or the presence of inhibitors. Results may be affected by concurrent antiviral/antimicrobial therapy or levels of organisms that are below the limit of detection. us Mayra Aguirre MD LAB MICROBIOLOGY - GENERAL ORDER LORETTA Final Result [facility] [address] [place] [address], * Magnesium (04/25/2025 3:16 PM EDT) [facility] Signature Magnesium 1.9 1.9 - 2.6 mg/dL LAB CHEMISTRY METHOD 04/25/2025 4:13 PM EDT [facility] Blood Venous blood specimen / Unknown Venipuncture / Unknown 04/25/2025 3:16 PM EDT 04/25/2025 3:24 PM EDT us Mayra Aguirre MD LAB BLOOD ORDERABLES Final Resul t Performing Organization Address [facility]/ZIP Co de Phone Number [facility] [address] [place] [address], [place] [phone] * Ammonia (04/25/2025 3:16 PM EDT) Ammonia 14 11 - 35 mcmol/L LAB CHEMISTRY METHOD 04/25/2025 4:01 PM EDT [facility] Blood Venous blood specimen / Unknown Venipuncture / Unknown 04/25/2025 3:16 PM EDT 04/25/2025 3:24 PM EDT us Mayra Aguirre MD LAB BLOOD ORDERABLES Final Resul t Performing Organization Address [facility] Co de Phone Number [facility] [address] [place] [address], [place] [phone] * CT Lung Screening (04/14/2025 10:57 AM EDT) Anatomical Region Laterality Modality Chest Computed Tomogra phy 04/25/2025 2:19 PM EDT Impressions 04/25/2025 2:34 PM EDT No suspicious mass or nodule. No suspicious interval change. LUNG RADS: Lung-RADS 2: BENIGN S Modifier (Significant or Potentially Significant Findings): None present No suspicious nonpulmonary findings. RECOMMENDATIONS: 12 month screening low dose CT -------- FINAL REPORT -------- Dictated By: Triston Osborne Dictated Date: 04/25/2025 14:19 ET Assigned Physician: Triston Osborne Reviewed and Electronically Signed By: Triston Osborne Signed Date: 04/25/2025 14:34 ET Workstation ID: [id number] Transcribed By: Self Edit Transcribed Date: 04/25/2025 14:19 ET Narrative 04/25/2025 2:34 PM EDT EXAMINATION: CT CHEST WITHOUT CONTRAST LUNG CANCER SCREENING, LOW DOSE CLINICAL INFORMATION: Lung cancer screening. Former smoker. COMPARISON: Portions of previous 04/13/24 TECHNIQUE: Multidetector CT. Examination of the chest. Examination of the chest without IV contrast. Reformatting in the coronal and sagittal planes. Device: [employer] [place] DLP: 177 mGy-cm CTDI: 4.89 Dose optimization was performed including the use of low-dose iterative reconstruction technique with automatic exposure control based on patient size. Type of contrast: None Volume of IV contrast: None Volume of contrast discarded: 0 mL FINDINGS: LUNG: No abnormality of the trachea or mainstem bronchi. LUNG NODULES: There are no suspicious nodules or masses. There are several unchanged bilateral micronodules including a typically benign pleural associated nodule associated with the left fissure. OTHER PULMONARY: There are some peripheral reticular opacities and some postinflammatory changes in the apices. There is no honeycomb formation. MEDIASTINUM: There are no enlarged mediastinal or hilar lymph nodes. No suspicious abnormalities of the esophagus. CARDIAC: The heart is not enlarged. No pericardial fluid or thickening No coronary calcifications demonstrated. VASCULAR: There is no thoracic aortic aneurysm. The main pulmonary artery is normal caliber PLEURA: There is no pleural fluid or pneumothorax AXILLA/CHEST WALL: There are no enlarged axillary lymph nodes. No chest wall mass demonstrated. VISUALIZED UPPER ABDOMEN: There is a partially included 2.7 cm low attenuating lesion in the lower aspect of the right lobe of liver. This likely corresponds to a sharply circumscribed T2 intense lesion demonstrated on localizing sequences from MRI 06/27/24. This may represent a cyst. The renal contours are slightly irregular. There are some collateral vessels in the upper abdomen. The lowest image suggests narrowing of the IVC. MUSCULOSKELETAL: No suspicious focal bony lesion demonstrated. Cystic and erosive changes around the right glenohumeral joint. Procedure Note Triston Osborne MD - 04/25/2025 EXAMINATION: CT CHEST WITHOUT CONTRAST LUNG CANCER SCREENING, LOW DOSE CLINICAL INFORMATION: Lung cancer screening. Former smoker. COMPARISON: Portions of previous 04/13/24 TECHNIQUE: Multidetector CT. Examination of the chest. Examination of the chest without IV contrast. Reformatting in the coronal and sagittal planes. Device: [employer] [place] DLP: 177 mGy-cm CTDI: 4.89 Dose optimization was performed including the use of low-dose iterativereconstruction technique with automatic exposure control based on patientsize. Type of contrast: None Volume of IV contrast: None Volume of contrast discarded: 0 mL FINDINGS: LUNG: No abnormality of the trachea or mainstem bronchi. LUNG NODULES: There are no suspicious nodules or masses. There are several unchanged bilateral micronodules including a typicallybenign pleural associated nodule associated with the left fissure. OTHER PULMONARY: There are some peripheral reticular opacities and somepostinflammatory changes in the apices. There is no honeycomb formation. MEDIASTINUM: There are no enlarged mediastinal or hilar lymph nodes. Nosuspicious abnormalities of the esophagus. CARDIAC: The heart is not enlarged. No pericardial fluid or thickening No coronary calcifications demonstrated. VASCULAR: There is no thoracic aortic aneurysm. The main pulmonary arteryis normal caliber PLEURA: There is no pleural fluid or pneumothorax AXILLA/CHEST WALL: There are no enlarged axillary lymph nodes. No chestwall mass demonstrated. VISUALIZED UPPER ABDOMEN: There is a partially included 2.7 cm lowattenuating lesion in the lower aspect of the right lobe of liver. Thislikely corresponds to a sharply circumscribed T2 intense lesiondemonstrated on localizing sequences from MRI 06/27/24. This may representa cyst. The renal contours are slightly irregular. There are some collateralvessels in the upper abdomen. The lowest image suggests narrowing of theIVC. MUSCULOSKELETAL: No suspicious focal bony lesion demonstrated. Cystic anderosive changes around the right glenohumeral joint. IMPRESSION: No suspicious mass or nodule. No suspicious interval change. LUNG RADS: Lung-RADS 2: BENIGN S Modifier (Significant or Potentially Significant Findings): Nonepresent No suspicious nonpulmonary findings. RECOMMENDATIONS: 12 month screening low dose CT -------- FINAL REPORT -------- Dictated By: Triston Osborne Dictated Date: 04/25/2025 14:19 ET Assigned Physician: Triston Osborne Reviewed and Electronically Signed By: Triston Osborne Signed Date: 04/25/2025 14:34 ET Workstation ID: [id number] Transcribed By: Self Edit Transcribed Date: 04/25/2025 14:19 ET Trino Dooley MD [facility] CT PROCEDURES Final Result * COLONOSCOPY Anesthesia - MAC; [facility] ENDOSCOPY (12/21/2024 11:37 AM EDT) Anatomical Region [...] pathology results. Narrative 12/21/2024 11:36 AM EDT [facility] Patient Name: nEriqueta Ordaz Procedure Date: 12/21/2024 11:13 AM Date of : 1955 Age: 69 Gender: Female Note Status: Finalized Attending MD: Jeff Salazar DO, [id number] Procedure Date No Time: 12/21/2024 Procedure: Colonoscopy [...] the physician, the nurse, the anesthesiologist, the patient care technician instructor and the patient care technician instructor in the pre-procedure area in the endoscopy [...] retroflexion views. Procedure Code(s): --- Professional --- 87478, Colonoscopy, flexible; with removal of tumor(s), polyp(s), or other lesion(s) by snare technique 93997, 59, Colonoscopy, flexible; with biopsy, single or multiple Diagnosis Code(s): --- Professional --- Z12.11, Encounter for screening for malignant neoplasm of colon K64.9, Unspecified hemorrhoids D12.5, Benign neoplasm of sigmoid colon D12.3, Benign neoplasm of transverse colon (hepatic flexure or splenic flexure) D12.2, Benign neoplasm of ascending colon CPT copyright 2020 [employer]. All rights reserved. The codes documented in this report are preliminary and upon event mgr review may be revised to meet current compliance requirements. JEFF Salazar DO 12/21/2024 11:36:48 AM This report has been signed electronically.Jeff Salazar DO Number of Addenda: 0 Note Initiated On: 12/21/2024 11:13 AM Scope Withdrawal Time: 0 hours 7 minutes 20 seconds Scope In: 11:21:02 AM Scope Out: 11:35:07 AM Endoscopy Department at [facility] - [address] [place] [phone] Procedure Note Jeff Salazar DO - 12/21/2024 [facility] Patient Name: Enriqueta Ordaz Procedure Date: 12/21/2024 11:13 AM Date of : 1955 Age: 69 Gender: Female Note Status: Finalized Attending MD: Jeff Salazar DO, [id number] Procedure Date No Time: 12/21/2024 Procedure: Colonoscopy [...] the physician, the nurse, the anesthesiologist, the patient care technician instructor and thetechnician in the pre-procedure area in [...] retroflexion views. Procedure Code(s): --- Professional --- 27514, Colonoscopy, flexible; with removal of tumor(s), polyp(s), or other lesion(s) by snare technique 61899, 59, Colonoscopy, flexible; with biopsy,single or multiple Diagnosis Code(s): --- Professional --- Z12.11, Encounter for screening for malignantneoplasm of colon K64.9, Unspecified hemorrhoids D12.5, Benign neoplasm of sigmoid colon D12.3, Benign neoplasm of transverse colon (hepatic flexure or splenic flexure) D12.2, Benign neoplasm of ascending colon CPT copyright 2020 [employer]. All rights reserved. The codes documented in this report are preliminary and upon event mgr reviewmay be revised to meet current compliance requirements. JEFF Salazar DO 12/21/2024 11:36:48 AM This report has been signed electronically.Jeff Salazar DO Number of Addenda: 0 Note Initiated On: 12/21/2024 11:13 AM Scope Withdrawal Time: 0 hours 7 minutes 20 seconds Scope In: 11:21:02 AM Scope Out: 11:35:07 AM Endoscopy Department at [facility] - [address] [place] [phone] IMPRESSION: - Hemorrhoids found on perianal exam. [...] colonoscopy for surveillance based on pathology results. Olga Thomson MD GI~PROCEDURE ORDERABLES Fin al Result * SCR MAMMO BI INCL CAD [...] to prior outside studies dating back to 2007. The breasts are composed mostly of fatty tissue. No suspicious mass, architectural distortion or suspicious calcifications are identified. IMPRESSION: : No mammographic evidence of malignancy. BIRADS 1-Negative; N. 5 year breast cancer risk assessment 2.8 % Lifetime breast cancer risk assessment 13.9 % Breast cancer risk category Low (<15%) Procedure Note Kelley Leung DO - 09/11/2023 This is a summary [...] % Breast cancer risk category Low (<15%) us Marlin Valdez MD IMG XR PROCEDURES Final Result from Last 3 Months or Most Recently Relevant to Health Maintenance Insurance MEDICARE Member Subscriber Plan / Payer (Ef fective 2022-Present) Name:OrdazAnastasiiaEnriqueta Relation to Subscriber:Self Name:Anastasiia Ordaznica Steven Payer ID:[id number] Group ID:[id number] Type:Not on file Address: [place] [address] [address] [id number] Advance Directives Documents on File Type Date Recorded Patient Business Development Agent Expl anation Advance Directives and Living Will 04/28/2025 9:27 AM Enriqueta Walters Health Care Proxy Healthcare Agents on File Name Relationship Healthcare Agent Relationship Communication Enriqueta Adali Daughter Health Care Agent Care Teams Wrapper Dipper Relationship Specialty Start Date End Date Marlin Valdez MD [address] [place] [id number] PCP - General Internal Medicine 06/10/24
--- OUTSIDE RECORDS SUMMARY | 2025-07-10 16:22 | XMS_ITS | Clinical Summary ---
Author Organization [facility] Address [address] [place] [address] Care Team Providers Care Network Relay Tester Name Role Phone Marlin Valdez MD Primary [...] 0 01/07/2023 Active ergocalciferol (VITAMIN D2) capsule 84286 units Take 1 capsule (50,000 Units total) [...] - PCV) 2022 COVID-19 Vaccine (2 - 2024-2 6 season) 2025 12/27/2020 Influenza Vaccine (#1) 2025 DTap / [...] age to complete this topic Care Teams Network Relay Tester Relationship Specialty Start Date End Date Marlin Valdez MD PCP - General Internal Medicine 02/24/22
--- OUTSIDE RECORDS SUMMARY | 2025-07-10 16:22 | XMS_ITS | Clinical Summary ---
Author Organization [facility][1] Address [address] [place] [phone] Phone Care Team Providers Care Traffic Court Magistrate Name Role Phone Marlin Valdez MD Primary [...] (01/06/2024): Tingling Numbness 05/04/2013 Overview (01/06/2024): Numbness Social History Tobacco Use Types Packs/Day Years [...] Office Visit [facility] [address] [phone] Jaison Rangel MD [facility] [address] [phone] Health Maintenance Due Date Last Done Comments Breast Cancer Screening 1955 Pneumococcal Vaccine: 50+ Ye ars (1 of 2 - PCV) 1976 Colorectal Cancer Screening: Annual FOBT 2006 Colorectal Cancer Screening: Colonoscopy 2006 Colorectal Cancer Screening: Sigmoidoscopy 2006 Influenza Vaccine (#1) 2025 Hepatitis B Vaccine Aged Out No longe r eligible based on patient's age to complete this [place] [address] ([id number]) [place] [address] ([id number]) Care Teams Traffic Court Magistrate Relationship Specialty Start Date End Date Marlin Valdez MD [address] [place] [id number] PCP - General Internal Medicine 01/06/24
--- OUTSIDE RECORDS SUMMARY | 2025-07-10 16:22 | XMS_ITS | Encounter Summary ---
Author Organization [facility] [place] [address] Care Team Providers Care Outdoor Landscape Architect Name Role Phone Marlin Valdez MD Primary Care Prov ider Encounter Details Date Type Department Care Team (Late st Contact Info) Description 06/16/2025 Results Follow-Up Adult Medicine - [place] [address] [place] [phone] Jordan Arredondo PA [address] [place] [address] Social History Tobacco Use Types Packs/Day Years [...] care for your loved ones. For example, child and youth program assistant or elderly care for an older adult? [...] 10:45 AM EST Office Visit Pulmonology - [place] [address] [facility] [address] [place] [phone] Tamika Chandler MD [address] [place] [phone] 08/24/2025 4:00 PM EST Office Visit [facility] - [place] [address] [facility] [address] [place] [phone] Chanda Ashley MD [address] [place] [address] 11/16/2025 1:30 PM EDT Office Visit Adult Medicine - [place] [address] [place] [phone] Jordan Arredondo PA [address] [place] [address] documented as of this encounter Visit Diagnoses Not on filedocumented in this encounter Additional Health Concerns Assessment Noted Time PHQ-9 Depression Total Score: 0 06/16/20 25 11:26 AM EST documented as of this encounter Care Teams Outdoor Landscape Architect Relationship Specialty Start Date End Date Marlin Valdez MD [address] [place] [address] PCP - General Internal Medicine 06/10/24 documented as of this encounter
--- OUTSIDE RECORDS SUMMARY | 2025-07-10 16:22 | XMS_ITS | Data Portability ---
Author Organization [employer] [facility], [facility] Address [address] [place] [address] Care Team Providers Care Outreach Assistant Name Role Phone [facility] Referring Provider Assessment Encounter Date Assessment Date Assessment LastModified by Organization Details LastModified Time 11/26/2022 11/26/2022 I provided real -time medical direction via phone for this encounter, and was available for additional phone based assistance as needed. I have reviewed and agree with the Assessment and Plan as documented by the Vocational Examiner. Patient given the opportunity to ask questions. Patient was referred for headaches and hypertension. She has been running diastolics consistently greater than 100 and systolic blood pressures in the 180s to 190s. She is status post some medication changes with her primary care provider and she has called to report these pressures to her primary care provider along with her symptoms and she has an appointment in middle of December for her follow-up. She also follows at a hypertensive Clinic for which she is awaiting a call back from them regarding her symptoms and her blood pressure. She does have follow-up at that clinic in 1 week. She also had an LP that was done several days ago and she was told by the person who performed the procedure that she had a high pressure. The patient states that the workup for the LP was being done in the context of MS. The patient declined repeated request to seek emergency treatment. The patient stated that she had medical training and that she would take a nap. After taking a nap she was going to reassess her situation and possibly present to emergency department. There are family members who are available who stated they would encourage her to seek medical care for hypertensive urgency. The patient was deemded competent to make a decision to disregard medical advice. [email or web address] Not available 11/26/2022 18:01:24 11/27/2022 11/27/2022 Called to janna pruitt 67 y/o f w HTN who c/o elevated BP. Pt reports sxs c/w vestibular REED. Denies CP, SOB, N/V. VS-BP on assessment 213/117. Given significantly elevated BP and sxs c/w vestibular REED higher level of care warranted. EMS called for transport to the ED. Care team, please f/u w patient post discharge. [email or web address] Not available 11/27/2022 14:15:39 Plan of Treatment Reminders Order Date Submit Date Provider Last Modified By Organization Details Last Modified Time Details Appointments None recorded. Lab None recorded. Referral emergency medicine referral 2022 023 LIBBY Not available 4 05:01:01 Procedures None recorded. Surgeries None recorded. Imaging None recorded. Medication Orders None recorded. Patient TargetsNo targets recorded. Patient InstructionsNo instructions recorded. Reason for Referral Emergency Medicine Referral for Hypertensive urgency Referring Physician: [facility], null Encounter Date: 11/26/2022 Medical Equipment None Reported. Allergies Allergen ID Allergen Name Allergen Category Reaction Reaction Severity Criticality Documentation Date Start Date Code Code System Note Provider Name and Address Organization Details Recorded Time 9280 latex environme nt,medica tion Not available Not available Not available 06/07/2024 05495 91 RxNorm Not Available [employer] - production 4 03:51:58 Medications Name Sig Start Date Stop Date Status Note LastModified by Organization Details LastModified Time atorvastatin 40 mg tablet active Not Available Not Available Not Available lisinopril 20 mg tablet active Not Available Not Available No t Available sertraline 100 mg tablet active Not Available Not Available No t Available amlodipine 10 mg tablet active Not Available Not Available No t Available nystatin 100,000 unit/gram topical powder active Not Available Not Availab le Not Available irbesartan 300 mg tablet active Not Available Not Available No t Available trospium ER 60 mg capsule,extend ed release 24 hr active Not Available Not Available Not Available Dupixent 300 mg/2 mL subcutaneous pen injector active Not Available Not Available Not Available Vitals Date Recorded Respiratory rate Heart rate Oxygen saturation Body temperature Systolic And Diastolic Provider Name and Address Organization Details Last Updated DateTime 3 16 /min 67 /min 95 % 98.5 [degF] 185/94 mm[Hg] Not Available [employer] - production 3 17:52:41 Date Recorded Body temperature Oxygen saturation Respiratory rate Body weight Heart rate Heart rate Oxygen saturation Respiratory rate Body weight Body temperature Respiratory rate Oxygen saturation Provider Name and Address Organization Details Last Updated DateTime 3 99 [degF] 98 % 14 /min 041670. 16 g 68 /min 68 /min 98 % 14 /min 271614. 16 g 99 [degF] 14 /min 98 % Not Available [employer] - production 3 11:50:32 Date Recorded Body temperature Heart rate Body weight Oxygen saturation Body temperature Body weight Heart rate Respiratory rate Systolic And Diastolic Systolic And Diastolic Systolic And Diastolic Systolic And Diastolic Provider Name and Address Organization Details Last Updated DateTime 3 99 [degF] 68 /min 165255. 16 g 98 % 99 [degF] 855249. 16 g 68 /min 14 /min 193/100 mm[Hg] 193/100 mm[Hg] 193/100 mm[Hg] 193/100 mm[Hg] Not Available [employer] - production 3 12:00:42 Social History None recorded. Functional Status None recorded. Mental Status None recorded. Family History Nothing Reported. Medical History No medical history recorded. Gynecological HistoryNo gynecological history recorded. Obstetrics History GPAL:G 0 P 0 0 0 0 Past Encounters Encounter ID Performer Location Encounter Start Date Encounter Closed Date Diagnosis/Indication Diagnosis SNOMED-CT Code Diagnosis ICD10 Code Diagnosis IMO Codes Diagnosis Note [id number] Maryam Anthony MD [facility] [address] [place] [phone] 11/26/2022 17:52:39 11/28/2022 09:42:52 Hypertensive urgency [id number] I16.0 [id number] Almita Maher MD [facility] - [facility] [address] [place] [phone] 11/27/2022 10:49:56 11/27/2022 14:15:45 Health Concerns Section Related Observation LastModified by Organization Detai ls LastModified Time None Recorded Concern Status LastModified by Organization Details LastModified Time None Recorded Advance Directives Directive None Recorded Payers Insurance Date Sequence Insurance Name Policy Number Policy Mcneal Covered Member ID Mcneal Member ID Guarantor Name 12/09/2024 1 [facility] - DOS PRIOR TO 2022 - DUAL ELIGIBLE (MEDICARE REPLACEMENT/ADV ANTAGE - HMO) Enriqueta Ordaz [id number] Enriqueta Ordaz Notes Date Note Type Note Provider Name and Address Organization Details Recorded Time 11/26/2022 text/html CRC Nursing Assessment: Reason For Request: HTN Chief Complaints: Hypertension, Headache, ENT, Syncope/Dizziness/Lig htheadedness, Nausea/Vomiting PMH: Hypertension Allergies: Latex Comments: experiencing high blood pressure 190/111 and had a lumber puncture on Thursday ([phone]) Member went to HTN clinic 3 weeks ago and had a med change from linsopril and now taking amlodipine and IRBESARTANT Thursday had an LP , found CSF was high . The urologist just gave her a new medication for overactive bladder. Member is incontinent , feels she is not having full briefs but does not feel she has retention . BP now 188, normal 150-160 . Does not have chronic pain , has a REED due to BP elevated . Have a call to urologist RED FLAGS reviewed, member verbalized understanding ..................... ..................... ..................... ..................... ..................... ..................... ............... Vocational Examiner Note From Ashwini Pratt: Sent to evaluate pt with htn c/o reed. Upon arrival, found pt seated on couch in living room. Pt is awake and alert, airway open and patent, breathing regular. In full sentences, in no acute distress, pt reports that she has baseline bp of 150/160 while +compliant with anti htn meds. Pt was seen in htn clinic x3 weeks ago with med change. Pt reports she's been having REED's that she associates with htn, neither of which changed with med change. On 11/24, pt had outpatient LP. Pt reports CSF pressures were abnormally high, with an exit pressure of 12. Pt reports since LP, she has had increased REED, bilateral blurred vision, pounding behind eye, dizziness, nausea, and feels like her head is swimming. Pt reports bp's as high as 190's/110s overnight after taking meds. Pt took tylenol yesterday with no effect. Pt admits she should have gone to ER at time of highest BP readings but did not. Pt has placed calls to her neurologist, PCP, HTN clinic, and urologist for further direction, awaiting phone calls back from all at this time. Pt has f/u appt with PCP 12/17. Pt requesting diuresis and believes that this will decrease her bp. Pt denies cp, vomiting/diarrhea, fever/chills, or sob. +dizziness, +intermittent blurred vision, +nausea, +reed. Obtained BP bilaterally, which were equal. Checked bandage from LP site, no drainage. Quality Assurance Monitor Chassis equal, no slurred speech, no drift, no facial droop. Pt adamant about being treated at home. Consulted [facility] who explained to pt that she was concerned with pt's bp and symptoms, and recommended that pt go to ER for further eval/treatment. Spent time educating patient on dangers of rapidly decreasing BP without monitoring and other complications that could arise from remaining at home with these blood pressure/symptoms. Pt eventually agreed to go to ER on stipulation that she take short nap first. Pt advises she will present to [facility] this afternoon. Pt has people in home with her to monitor until she goes to ER. Went over red flags to trigger EMS response prior to her going to ER POV and pt verbalized understanding. There were no further questions or concerns at this time. ..................... ..................... ..................... ..................... ..................... ..................... ............... Disposition: Fulfilled Maryam Anthony MD [address] [facility],[address], [place], [address], [employer] 11/26/2022 18:01:36 11/27/2022 text/html CRC Nursing Assessment: Reason For Request: HTNDenies: Palpitations, feeling dizzy Chest pain, increased fatigue CHF history, increased swelling and edema Weakness/tachycardia Chief Complaints: HypertensionPMH: HypertensionAllergies : LatexComments: Revisit 11/26 per [facility] recommendations [facility] Nursing Assessment experiencing high blood pressure 190/111 and had a lumber puncture on Thursday ([phone]) Member went to HTN clinic 3 weeks ago and had a med change from linsopril and now taking amlodipine and IRBESARTANT Thursday had an LP , found CSF was high . The urologist just gave her a new medication for overactive bladder. Member is incontinent , feels she is not having full briefs but does not feel she has retention . BP now 188, normal 150-160 . Does not have chronic pain , has a REED due to BP elevated . Have a call to urologist RED FLAGS reviewed, member verbalized understanding ..................... ..................... ..................... ..................... ..................... ..................... ............... Vocational Examiner Note From Jose Ramon Hooks: Pt CO of HTN related Sx. Pt had LP 3 days ago and had elevated CSF. Pt denies SOB, dizziness, NVD, chest Pn. Pt states feels like she has a vestibular REED. Initial bp 213/117, P 65. 4 Lead conducted, NSR. Contacted and decision was made to bring pt to ED. Pt was transferred to [facility] ED by Unit SP [facility] Vocational Examiner Allergies: Latex ..................... ..................... ..................... ..................... ..................... ..................... ............... Disposition: Fulfilled Almita Maher MD [address] [facility],[address], [place], [address], [employer] 11/27/2022 14:15:43 OBGyn Episode No OBEpisode recorded.
== END 2025-07-10 14:04 | disposition home or self-care (01) ==
LOC: HO.RHES 12:46
PROVIDERS: PCP Internal Medicine; Visit Provider Student in an Organized Health Care Education/Training Program
DX: M54.50 Low back pain, unspecified (principal); G89.29 Other chronic pain; L40.9 Psoriasis, unspecified
CPT/HCPCS: 99204

== ENCOUNTER 2025-07-31 12:22 | Outpatient (AMB) | payer OTHER, SELFPAY ==
[2025-07-31 12:36] VITALS: BP 121/68; PULSE 68; O2SAT 98; BMI 32.3
--- NOTE | 2025-07-31 12:36 | A.OFFVIS_ITS ---
Vital Signs 07/31/25 12:36 Height 5 ft 10 in Weight 225 lb BMI 32.3 BP 121/68 Blood Pressure Location Lt brachial Position Sitting Pulse 68 Pulse Source Pulse Oximeter Pulse Oximetry (%) 98 Oxygen Delivery Method Room Air Intake Visit Reasons: follow up Intake Note: Patient presents today for follow up on back pain, labs and x-rays. Electronic Controls Repairer Supervisor Required: No Allergies iodine Allergy (Severe, Verified 07/31/25 12:41) Anaphylaxis seafood Allergy (Severe, Verified 07/31/25 12:41) Anaphylaxis codeine Allergy (Intermediate, Verified 07/31/25 12:41) faint/shortness of breath hydrocodone Allergy (Intermediate, Verified 07/31/25 12:41) faint/shortness of breath Latex, Natural Rubber Allergy (Intermediate, Verified 07/31/25 12:41) Rash measles, mumps, and rubella vaccine Allergy (Unknown, Verified 07/31/25 12:41) Unknown povidone-iodine (From Betadine) Allergy (Unknown, Verified 07/31/25 12:41) Blister Corticosteroids (Glucocorticoids) Adverse Reaction (Mild, Verified 07/31/25 12:41) Hives HPI Comments Details: 69 YEAR old female with history of MS, lower back pain recently hospitalized for pneumonia in April presenting as a follow-up for evaluation of inflammatory arthritis given her worsening of lower back pain and hip pain. On labs, she had a negative ESR, CRP, CCP RF 21.5 HLA B27 negative X-ray of the hips showed pelvic bones intact, no abnormal widening of the SI joints seen. His MRI of the lumbar spine showed multilevel degenerative changes, MRI of the cervical spine showed no evidence of demyelination of the cervical spine. Patient had hand x-rays done which showed early erosions in the PIPs of her fingers, these were done at an outside facility and I will import the result into our system. She continues to have lower back pain. Initial history :She also has psoriasis for past 15 years and is on Rinvoq prescribed by Dermatology at [facility] Dr Johnathan Falk She denies any joint pain in knuckles hands or wrists, no morning stiffness, no active synovitis. no joint swelling stiffness in the feet. She states she has hip pain anteriorly in the groin that is worse and b/l knee pain and b/l shoulders pain. She has surgery in 2011 of the right rotator cuff and partial tear in the left shoulder 5 years ago. Cervical spine has degenerative arthritis on xrays, she had MRI of the lumbar spine for evaluation of her lower back pain and MS done in April 2025 at [facility] , i dont have them available to me i will request these. In terms of blood work she reports an elevated RF. ROS: endorses photosensitivity, painful oral ulcers, no raynauds , no episodes of uveitis, she has dry she has dry mouth, no bloody diarrhea,no recurrent ear infections no enthesitis no dactylitis. FH: sister has psoriaisis Vital signs reviewed Physical Examination CONSTITUITIONAL Patient alert and cooperative. Well appearing and in no apparent painful distress HEENT Conjunctiva and sclera clear. No lymphadenopathy. CHEST/RESPIRATORY SYSTEM Normal respiratory effort and able to speak in complete sentences. Clear to auscultation bilaterally. No crackles, rales, rhonchi, wheezes heard. CARDIAC SYSTEM Regular rate and rhythm. S1 and S2 heard no murmurs. Radial pulses intact bilaterally MSK Patient exhibits weakness all over. No active synovitis noted in the PIPs MCPs or wrists. Patient's transport technician strength is weak. Range of motion of the upper extremities is limited due to rotator cuff tears, strength in the upper extremities 3/5. Patient is in a wheelchair. Patient has limited range of motion in the lower extremities. Strength in the right leg is 2/5 and strength in the left leg is 1/5 she is very weak in the lower extremities. Again no active synovitis noted in any of the lower extremities. I was unable to perform a Magdalene test. She has pinpoint pain in the lower back SKIN No rashes on the elbows, scalp or knees noted today [facility] Medical History (Updated 07/31/25 @ 14:21 by Heidi Davis MD) History of postoperative nausea and vomiting Hepatitis A Sleep apnea Psoriasis Depression Pulmonary embolism Ulnar nerve compression Multiple sclerosis Elevated cholesterol HTN (hypertension) Surgical History Hx of rotator cuff surgery History of surgery Hx of hysterectomy Hx of lumbar discectomy Hx of hand surgery Family History Maternal Grandmother Rheumatoid arthritis Father Diabetes Bladder cancer Social History (Reviewed 12/22/25 @ 12:44 by Kelley Hinds [facility] Are you a primary critical care nurse practitioner to a significant other at home: No Do you presently have visiting nurse or other home services: Yes ([employer]) Comment: counts correct Patient Tobacco Use Status: Former Tobacco user Tobacco use type: Cigarette Physical Exam Vital Signs: Last Vital Signs Pulse 68 07/31/25 12:36 BP 121/68 07/31/25 12:36 Pulse Ox 98 07/31/25 12:36 Oxygen Delivery Method Room Air 07/31/25 12:36 BMI result Body Mass Index 32.3 Assessment & Plan Assessment & Plan (1) Psoriasis: Code(s): L40.9 - Psoriasis, unspecified Category: Medical (2) Back pain: Code(s): M54.9 - Dorsalgia, unspecified Category: Medical Qualifiers: Back pain location: low back pain Chronicity: chronic Back pain laterality: midline Sciatica presence: unspecified whether sciatica present Qualified Code(s): M54.50 - Low back pain, unspecified; G89.29 - Other chronic pain (3) Joint pain: Code(s): M25.50 - Pain in unspecified joint Category: Medical Qualifiers: Joint pain location: hip Laterality: unspecified laterality Qualified Code(s): M25.559 - Pain in unspecified hip (4) Inflammatory arthritis: Code(s): M13.80 - Other specified arthritis, unspecified site Category: Medical Plan 70-year-old female with a history of psoriasis and multiple sclerosis coming in with worsening lower back pain. She has normal ESR CRP, her RF is slightly positive, CCP negative. Her hand x-rays demonstrate she has got early erosions in the PIPs, we will request the official report of the hand x-rays in our system. She seems to have inflammatory arthritis. For psoriasis, she is on Rinvoq. I will do a dedicated MRI of the pelvis to rule out sacroiliitis which can be seen in psoriatic arthritis I will also request x-rays of the foot to look for signs of inflammatory arthritis. I will also update hepatitis-B and C profile along with QuantiFERON in preparation for initiating biologic. Follow up in 4 weeks for further management Orders: Orders Hepatitis B,C Profile Today Z79.899 - Other oil heaterman (current) drug therapy XR Foot Jermain 2V Today M13.80 - Other specified arthritis, unspecified site MR pelvis wo con Today G89.29 - Other chronic pain, L40.9 - Psoriasis, unspecified, M25.50 - Pain in unspecified joint, M54.50 - Low back pain, unspecified Quantiferon TB Gold Plus 1 Today Z79.899 - Other correction (current) drug therapy Coding Level of Care Code Est Pt Level 4 (22758) Add On Problem Visit Only Diagnoses Psoriasis L40.9 Chronic midline low back pain, unspecified whether sciatica present M54.50; G89.29 Back pain location: low back pain Chronicity: chronic Back pain laterality: midline Sciatica presence: unspecified whether sciatica present Arthralgia of hip, unspecified laterality M25.559 Joint pain location: hip Laterality: unspecified laterality Inflammatory arthritis M13.80
--- OUTSIDE RECORDS SUMMARY | 2025-07-31 15:36 | XMS_ITS | Clinical Summary ---
Author Organization [facility] Address [address] [address] Phone Care Team Providers Care Construction Ironworker Name Role Phone Marlin Valdez MD Primary [...] topic Medical Devices Not on file Insurance [email or web address] ACO [email or web address] A[employer] [address] [place], [place] [address] [facility] ALLANCE [employer] [facility] ALLANCE ACO [facility] ALLANCE ACO Care Teams Construction Ironworker Relationship Specialty Start Date End Date Marlin Valdez MD [address] [place] [address] PCP - General Internal Medicine 12/16/17 Additional Source Comments The information contained in this document represents components of the legal health record. It is not the complete legal health record.[facility]
--- OUTSIDE RECORDS SUMMARY | 2025-07-31 15:36 | XMS_ITS | Encounter Summary ---
Author Organization [facility] Address [address] [place] [address] Care Team Providers Care Recycling Center Operator Name Role Phone Marlin Valdez MD Primary Care Prov ider Encounter Details Date Type Department Care Team (Late st Contact Info) Description 05/26/2025 Results Follow-Up Adult Medicine - [address] [phone] Marlin Valdez MD [address] [place] [id number] Social History Tobacco Use Types Packs/Day Years [...] care for your loved ones. For example, childcare director or elderly care for an older adult? [...] 10:45 AM EST Office Visit Pulmonology - [place] [address] [place] [phone] Tamika Chandler MD [address] [place] [address] 08/24/2025 4:00 PM EST Office Visit [facility] [place] - [place] [address] [place] [phone] Chanda Ashley MD [address] [place] [address] 11/16/2025 1:30 PM EDT Office Visit Adult Medicine - [place] [address] [place] [phone] Jordan Arredondo PA [address] [place] [address] documented as of this encounter Visit Diagnoses Not on filedocumented in this encounter Additional Health Concerns Assessment Noted Time PHQ-9 Depression Total Score: 12 025 10:54 AM EDT documented as of this encounter Care Teams Recycling Center Operator Relationship Specialty Start Date End Date Marlin Valdez MD [address] [place] [address] PCP - General Internal Medicine 06/10/24 documented as of this encounter
--- OUTSIDE RECORDS SUMMARY | 2025-07-31 15:36 | XMS_ITS | Clinical Summary ---
Author Organization [facility] Address [address] [place] [phone] Phone Care Team Providers Care Oracle Drm Consultant Name Role Phone Marlin Valdez MD Primary [...] Office Visit [facility] [address] [phone] Jaison Rangel MD [facility] [address] [address] Health Maintenance Due Date Last Done Comments Breast Cancer Screening 1955 Pneumococcal Vaccine: 50+ Ye ars (1 of 2 - PCV) 1976 Colorectal Cancer Screening: Annual FOBT 2006 Colorectal Cancer Screening: Colonoscopy 2006 Colorectal Cancer Screening: Sigmoidoscopy 2006 Influenza Vaccine (#1) 2025 Hepatitis B Vaccine Aged Out No longe r eligible based on patient's age to complete this topic [place] [address] ([id number]) [place] [address] ([id number]) Care Teams Oracle Drm Consultant Relationship Specialty Start Date End Date Marlin Valdez MD [address] [place] [id number] PCP - General Internal Medicine 01/06/24
--- OUTSIDE RECORDS SUMMARY | 2025-07-31 15:36 | XMS_ITS | Encounter Summary ---
Author Organization [facility] Address [address] [place] [id number] Phone Care Team Providers Care Sanitation Lead Name Role Phone Marlin Valdez MD Primary Care Pr ovid Reason for Referral * Occupational Therapy (Routine) - Closed Specialty Diagnoses / Procedures Referred By Mirela heart Referred To Contact Occupational Therapy Diagnoses Encounter for rehabilitation System, Provider Not In, [facility] [id number] [place] [address] Phone: tel: Referral ID Status Reason Start Date Expiration Date Visits Re quested Visits Authorized [id number] Closed 03/08/2018 08/09/2018 9 9 Encounter Details Date Type Department Care Team (Latest Contact Info) Description 03/08/2018 Transcribe Orders [facility] [address] [place] [address] Marlin Valdez MD [address] [place] [id number] Encounter for rehabilitation (Primary Dx) Social History [...] Diagnoses Orde r Schedule Ambulatory referral to [facility] Occupational Therapy Outpatient Referral Routine Encounter for rehabilitation Ordered: 03/08/2018 documented as of this encounter Visit Diagnoses Diagnosis Encounter for rehabilitation- Primary documented in this encounter Care Teams Sanitation Lead Relationship Specialty Start Date End Date Marlin Valdez MD [address] [place] [address] PCP - General Internal Medicine 12/16/17 documented as of this encounter Additional Source Comments The information contained in this document represents components of the legal health record. It is not the complete legal health record.[facility]
--- OUTSIDE RECORDS SUMMARY | 2025-07-31 15:36 | XMS_ITS | Clinical Summary ---
Author Organization [facility] Prior to 01/07/[address] [place] [address] Care Team Providers Care Billiard Player Name Role Phone Marlin Valdez MD Primary [...] 0 01/07/2023 Active ergocalciferol (VITAMIN D2) capsule 09663 units Take 1 capsule (50,000 Units total) [...] age to complete this topic Care Teams Billiard Player Relationship Specialty Start Date End Date Marlin Valdez MD PCP - General Internal Medicine 02/24/22
--- OUTSIDE RECORDS SUMMARY | 2025-07-31 15:36 | XMS_ITS | Data Portability ---
Author Organization [employer] [facility], [facility] Address [address] [place] [address] Care Team Providers Care Nursing Support Worker Name Role Phone [facility] Referring Provider Assessment Encounter Date Assessment Date Assessment LastModified by Organization Details LastModified Time 11/26/2022 11/26/2022 I provided real -time medical direction via phone for this encounter, and was available for additional phone based assistance as needed. I have reviewed and agree with the Assessment and Plan as documented by the Dials Supervisor. Patient given the opportunity to ask questions. [...] significantly elevated BP and sxs c/w vestibular ERED higher level of care warranted. EMS called [...] Not available Not available Not available 06/07/2024 [id number] RxNorm Not Available [employer] - production 4 03:51:58 Medications Name Sig [...] 3 99 [degF] 98 % 14 /min 842875. 16 g 68 /min 68 /min 98 % 14 /min 629825. 16 g 99 [degF] 14 /min 98 % Not Available [employer] - production 3 11:50:32 Date Recorded Body temperature Heart rate Body weight Oxygen saturation Body temperature Body weight Heart rate Respiratory rate Systolic And Diastolic Systolic And Diastolic Systolic And Diastolic Systolic And Diastolic Provider Name and Address Organization Details Last Updated DateTime 3 99 [degF] 68 /min 470964. 16 g 98 % 99 [degF] 295379. 16 g 68 /min 14 /min 193/100 [...] 9588 Maryam Anthony MD Main - [facility] [address] [place] [phone] 11/26/2022 17:52:39 11/28/2022 09:42:52 Hypertensive urgency [id number] I16.0 [id number] Almita Maher MD Main - [facility] [address] [place] [address] [phone] 11/27/2022 10:49:56 11/27/2022 14:15:45 Health Concerns Section Related Observation LastModified by Organization Detai ls LastModified Time None Recorded Concern Status LastModified by Organization Details LastModified Time None Recorded Advance Directives Directive None Recorded Payers Insurance Date Sequence Insurance Name Policy Number Policy Mcneal Covered Member ID Mcneal Member ID Guarantor Name 12/09/2024 1 [facility] - DOS PRIOR TO 2022 - DUAL ELIGIBLE (MEDICARE REPLACEMENT/ADV ANTAGE - HMO) Enriqueta Ordaz [id number] Enriqueta Ordaz Notes Date Note Type Note Provider Name and Address Organization Details Recorded Time 11/26/2022 text/html [facility] Nursing Assessment: Reason For Request: HTN Chief Complaints: Hypertension, Headache, ENT, Syncope/Dizziness/Lig htheadedness, Nausea/Vomiting PMH: Hypertension Allergies: Latex Comments: experiencing high blood pressure 190/111 and had a lumber puncture on Thursday ([phone]) Member went to HTN clinic 3 weeks [...] ..................... ..................... ..................... ..................... ..................... ..................... ............... Dials Supervisor Note From Ashwini Pratt: Sent to evaluate [...] Checked bandage from LP site, no drainage. Disposition Clerk equal, no slurred speech, no drift, no facial droop. Pt adamant about being treated at home. Consulted [facility] who explained to pt that she was [...] first. Pt advises she will present to [facility] this afternoon. Pt has people in home with her to monitor until she goes to ER. Went over red flags to trigger EMS response prior to her going to ER POV and pt verbalized understanding. There were no further questions or concerns at this time. ..................... ..................... ..................... ..................... ..................... ..................... ............... Disposition: Fulfilled Maryam Anthony MD [address] [facility],[address], [place], [address], [employer] 11/26/2022 18:01:36 11/27/2022 text/html [facility] Nursing Assessment: Reason For Request: HTNDenies: Palpitations, feeling dizzy Chest pain, increased fatigue CHF history, increased swelling and edema Weakness/tachycardia Chief Complaints: HypertensionPMH: HypertensionAllergies : LatexComments: Revisit 11/26 per [facility] recommendations [facility] Nursing Assessment experiencing high blood pressure 190/111 and had a lumber puncture on Thursday ([phone]) Member went to HTN clinic 3 weeks [...] ..................... ..................... ..................... ..................... ..................... ..................... ............... Dials Supervisor Note From Jose Ramon Hooks: Pt CO of HTN related Sx. Pt had LP 3 days ago and had elevated CSF. Pt denies SOB, dizziness, NVD, chest Pn. Pt states feels like she has a vestibular REED. Initial bp 213/117, P 65. 4 Lead conducted, NSR. Contacted and decision was made to bring pt to ED. Pt was transferred to [facility] ED by Unit [facility] Dials Supervisor Allergies: Latex ..................... ..................... ..................... ..................... ..................... ..................... ............... Disposition: Fulfilled Almita Maher MD [address] [facility],[address], [place], [address], [employer] 11/27/2022 14:15:43 OBGyn Episode No OBEpisode recorded.
--- OUTSIDE RECORDS SUMMARY | 2025-07-31 15:36 | XMS_ITS | Clinical Summary ---
Author Organization Patient Business Ser [facility] Address [address] [place] [address] Care Team Providers Care Trumpet Player Name Role Phone Marlin Valdez MD [...] Anaphylaxis High 03/05/2016 Throat closes up Medications Rinvoq 15 mg tablet extended release 24 hr 5 Active sodium bicarbonate 650 mg tablet Take 1 tablet (650 mg total) by mouth. 5 01/22/20 26 Active NIFEdipine XL (PROCARDIA XL) 60 mg 24 hr tablet Take 1 tablet (60 mg total) by mouth 1 (one) time each day before breakfast. 90 tablet 1 5 Active ergocalciferol (Vitamin D2) 1,250 mcg (50,000 unit) capsule Active atorvastatin (LIPITOR) 40 mg tablet TAKE 1 TABLET BY MOUTH EVERY DAY 90 tablet 1 5 Active sertraline (ZOLOFT) 100 mg tablet TAKE 1 TABLET BY MOUTH 1 TIME EACH DAY. 90 tablet 1 5 Active disposable gloves miscIndications :Neurogenic bladder,Multipl e sclerosis 4 Boxes of Gloves to use up to six times a day. To use for life. 4 each 5 Active incontinence pad, liner, disp padIndications: Neurogenic bladder,Multipl e sclerosis To use 4 pads a day 120 each 11 5 Active acetaZOLAMIDE (DIAMOX) 250 mg tablet TAKE 1 TABLET (250 MG TOTAL) BY MOUTH 1 (ONE) TIME EACH DAY FOR 7 DAYS, THEN 1 TABLET (250 MG TOTAL) 2 (TWO) TIMES A DAY. 107 tablet 3 5 Active cyanocobalamin (VITAMIN B-12) 1,000 mcg/mL injection INJECT 1 ML (1,000 MCG TOTAL) INTO THE SHOULDER,THI GH,OR BUTTOCKS EVERY 30 DAYS 5 Active Gavilax 17 gram/dose oral powder TAKE 17 G BY MOUTH 1 (ONE) TIME EACH DAY. HOLD FOR DIARRHEA/LOO SE STOOLS 5 Active EPINEPHrine (EPIPEN) 0.3 mg/0.3 mL injection Inject 0.3 mL (0.3 mg total) into the thigh if needed for anaphylaxis. Inject 0.3 mg into the muscle. Strength: 0.3 mg/0.3 mL 2 each 1 5 Active acetaminophen (TYLENOL) 500 mg tablet Take 1 tablet (500 mg total) by mouth every 6 (six) hours if needed for mild pain for up to 12 doses. 12 tablet 5 Active ibuprofen (ADVIL,MOTRIN) 200 mg tablet Take 1 tablet (200 mg total) by mouth every 6 (six) hours if needed for mild pain for up to 36 doses. 36 tablet 5 Active topiramate (TOPAMAX) 50 mg tablet Take 2 tablets (100 mg total) by mouth at bedtime. 30 tablet 3 5 09/23/19 26 Active topiramate (TOPAMAX) 50 mg tablet TAKE 2 TABLETS BY MOUTH 2 TIMES A DAY. 360 tablet 1 5 07/25/20 25 Discontinue d(Reorder) cephalexin (KEFLEX) 500 mg capsule Take 1 capsule (500 mg total) by mouth 4 (four) times a day for 5 days. 20 each 5 07/03/20 25 saccharomyces boulardii (FLORASTOR) 250 mg capsule Take 1 capsule (250 mg total) by mouth 2 (two) times a day. 60 capsule 5 07/28/20 25 sulfamethoxazol e-trimethoprim (BACTRIM DS,SEPTRA DS) 800-160 mg per tablet Take 1 tablet by mouth 2 (two) times a day for 5 days. 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 Low bicarbonate 02/20/2025 Elevated rheumatoid factor 02/20/2025 At high risk for injury related to fall 02/21/20 25 Multiple sclerosis 10/21/2024 Positive colorectal cancer screening [...] joint pain 11/12/2011 Constipation 11/12/2011 Epileptic seizures 11/12/2011 Lichen sclerosus et atrophicus of the vulva [...] Last Assessment & Plan: Sent script to [facility] for autoCPAP 6-16 cm H2O Trigeminal neuralgia 09/08/2007 Depression 09/08/2007 Excessive weight gain 09/08/2007 Irritable bowel syndrome 09/08/2007 Encounters Date Type Department Care Team Description 07/21/2025 Telephone Adult Medicine [address] [phone] Marlin Valdovinos MD 07/17/2025 12:59 PM EST - 07/17/2025 11:59 PM EST Hospital Encounter [facility] Xray [address] [place] [address] Pain in unspecified joint Discharge Disposition: Home or Self Care 07/17/2025 12:58 PM EST - 07/17/2025 11:59 PM EST Hospital Encounter [facility] Xray [address] [place] [address] Pain in unspecified joint Discharge Disposition: Home or Self Care 07/17/2025 12:10 PM EST Lab Draw Station - [address] [phone] Raised antibody titer (Primary Dx); Dorsalgia; Psoriasis 06/28/2025 1:45 PM EST - 06/28/2025 5:22 PM EST Emergency [facility] Emergency [address] [place] [address] Eugene Wells MD Puncture wound of right breast, initial encounter (Primary Dx); Cellulitis of breast; Facial hematoma, initial encounter; Hip sprain, left, initial encounter; Left hip pain; Hematoma of left thigh, initial encounter Discharge Disposition: Home or Self Care 06/27/2025 Telephone Adult Medicine [facility] [address] [place], [place] [phone] Marlin Valdovinos MD 06/16/2025 1:06 PM EST - 06/16/2025 11:[address] [facility] Xray [address] [place] [phone] Pneumonia of right lower lobe due to infectious organism Discharge Disposition: Home or Self Care 06/16/2025 12:30 PM EST Lab Draw Station [address] Abnormal urinalysis; Pneumonia of right lower lobe due to infectious organism; Abnormal renal function 06/16/2025 11:30 AM EST Office Visit [address] [phone] Jordan Arredondo PA Pneumonia of right lower lobe due to infectious organism (Primary Dx); Benign essential hypertension; Obstructive sleep apnea; Neurogenic bladder; Multiple sclerosis; Abnormal renal function; Abnormal urinalysis; Metallic taste 06/16/2025 Results Follow-Up [address] [phone] Jordan Arredondo PA 06/09/2025 10:00 AM EDT Ancillary Procedure Pulmonology - [place] [facility] [address] [place] [phone] SOB (shortness of breath) 06/08/2025 Telephone Adult [address] [phone] Marlin Valdovinos MD 05/26/2025 Results Follow-Up [address] [phone] Marlin Valdovinos MD 05/26/2025 Telephone Adult [address] [phone] Marlin Valdovinos MD 05/22/2025 Telephone Adult [address] [phone] Marlin Valdovinos MD 05/16/2025 Telephone [facility] [address] [place] [address] Marlin Valdovinos MD 05/12/2025 Telephone [facility] [address] [place] [address] Marlin Valdovinos MD 05/12/2025 Telephone [facility] [address] [place] [address] Marlin Valdovinos MD 05/12/2025 Telephone [facility] [address] [place] [address] Marlin Valdovinos MD 05/11/2025 Telephone [facility] [address] [place] [address] Marlin Valdovinos MD 05/11/2025 Billing Patient Not Present Adult [facility] [address] [place] [address] Marlin Valdovinos MD Pneumonia due to infectious organism, unspecified laterality, unspecified part of lung (Primary Dx); Multiple sclerosis; Neuromuscular dysfunction of bladder, unspecified; Essential (primary) hypertension; Depression, unspecified depression type; Contact dermatitis, unspecified contact dermatitis type, unspecified trigger 05/09/2025 Telephone [facility] [address] [place] [address] Marlin Valdovinos MD 05/04/2025 Telephone [facility] [address] [place] [address] Marlin Valdovinos MD 05/03/2025 Telephone [facility] [address] [place] [address] Emmy Hall MA 05/02/2025 Telephone [facility] [address] [place] [address] Marlin Valdovinos MD from Last 3 Months Immunizations Immunization Administration Dates Next Due [employer] SARS-CoV-2 COVID -19, vector-nr, rS-Ad26, preservative free [...] COMMENT: low back L3-S1 OTHER SURGICAL HISTORY 2011 Right PROCEDURE: ---- OTHER ----; COMMENT: rotator cuff repair APPENDECTOMY 1974 PROCEDURE: HISTORICAL APPENDECTOMY OOPHORECTOMY PROCEDURE: HISTORICAL OOPHORECTOMY; COMMENT: one remvoed with hyst due to cyst, other removed 1.5 years later for large benign cyst BREAST BIOPSY PROCEDURE: BX BREAST; PERC NEEDLE CORE W/IMAG GUID BREAST SURGERY Left PROCEDURE: [place] UNLISTED PROCEDURE BREAST; COMMENT: lumpectomy benign BREAST SURGERY Right PROCEDURE: [place] UNLISTED PROCEDURE BREAST; COMMENT: lumpectomy x 2 HYSTERECTOMY 1984 PROCEDURE: HISTORICAL HYSTERECTOMY; COMMENT: age 28 a weeka fter childbirth for delayed hemorrhage EXPLORATORY LAPAROTOMY 1985, 2x in 1986 OTHER SURGICAL HISTORY 08/10/1984 - 08/09/1985 lower vena cava ligation Medical History Medical History Date Comments Pure hypercholesterolemia DX:Pur e hypercholesterolemia Hypertension DX:Hypertension Lichen sclerosus DX:Lichen scler osus MS (multiple sclerosis) DX:MS (m ultiple sclerosis) (HCC) Psoriasis DX:Psoriasis Circumscribed scleroderma DX:Cir cumscribed scleroderma Neurogenic bladder DX:Neurogenic bladder Contact dermatitis 06/25/2016 DX:Contact de rmatitis Depression 06/25/2016 DX:Depression HTN (hypertension) 06/25/2016 DX:HTN (hyper tension) Multiple sclerosis 06/25/2016 DX:Multiple s clerosis (HCC); COMMENT: Dr. Churchill Lichen sclerosus 06/25/2016 DX:Lichen scler osus; COMMENT: Perineum DVT (deep venous thrombosis) ([facility] V24, [facility] V28) DX:DVT (deep venous thrombos is) ([facility]) Family history of diabetes m ellitus in [...] Diabetes Sister 1 Christy Diabetes Sister 2 Spray insulin resista nt Breast cancer Neg Hx [...] Record ed Within the last 3 months, natalie w many times did you visit the [...] do you feel lonely or isolated from ose around you? Rarely 02/19/2025 Food Risk [...] for your loved ones. For example, children's tutor nursery or elderly care for an older adult? [...] not to disclose 2021 2:50 PM EDT Last Filed Vital Signs Vital Sign Reading [...] 08/22/2025 10:45 AM EST Office Visit Pulmonology [facility] 175 [facility] [address] [place] [phone] Tamika Chandler MD [address] [place] [phone] 08/24/2025 4:00 PM EST Office Visit [facility] [address] [facility] [address] [place] [phone] Chanda Ashley MD [address] [place] [address] 11/16/2025 1:30 PM EDT Office Visit Adult Medicine - [place] [address] [place] [phone] Jordan Arredondo PA [address] [place] [address] Health Maintenance Due Date Last Done Comments Pneumococcal Vaccine: 50+ Years (1 of 1 - PCV) 2007 RSV Immunization Adult Patients (1 - Risk 50-74 years 1-dose series) 2007 Zoster Vaccines (1 of 2) 2007 Breast Cancer Screening 08/11/2019 08/11/2017 Hepatitis C Screening 03/19/2022 Medicare Annual Wellness Visit 03/19/2022 Osteoporosis Screening (Bone Density Screening) 03/19/2022 COVID-19 Vaccine (3 - 2024- season) 2025 08/22/2021, 12/27/2020 Influenza Vaccine (#1) 2025 Lung Cancer Screening (Low Dose CT) 04/14/2026 04/14/2025, 04/13/2024, 04/13/2024, Additional history exists Social Influencers of Health Screening 04/27/2026 04/27/2025 Falls Risk Assessment 04/28/2026 04/28/2025, 025 Hypertension/CHF/CAD Annual BMP Blood Test 07/17/2026 07/17/2025, 06/16/2025, 04/28/2025, Additional history exists Colorectal Cancer Screening: Colonoscopy [...] Procedure Name Priority Date/Time Associated Diagnosis Comments XR HAND 3+ VIEWS BILAT Routine 5 1:23 PM EST Pain in unspecified joint XR WRIST 3+ VIEWS BILAT Routine 07/17/20 25 1:23 PM EST Pain in unspecified joint CBC WITH AUTO DIFFERENTIAL Routine 07/17/2025 12:31 PM EST Raised antibody titer Dorsalgia Psoriasis C-REACTIVE PROTEIN Routine 07/17/2025 12 :31 PM EST Raised antibody titer Dorsalgia Psoriasis COMPREHENSIVE METABOLIC PANEL Routine 07/17/2025 12:31 PM EST Raised antibody titer Dorsalgia Psoriasis C4 COMPLEMENT Routine 07/17/2025 12:31 PM EST Raised antibody titer Dorsalgia Psoriasis SEDIMENTATION RATE Routine 07/17/2025 12 :31 PM EST Raised antibody titer Dorsalgia Psoriasis RHEUMATOID FACTOR Routine 07/17/2025 12: 31 PM EST Raised antibody titer Dorsalgia Psoriasis ANTI-DNA ANTIBODY, DOUBLE-STRANDED Routine 07/17/2025 12:31 PM EST Raised antibody titer Dorsalgia Psoriasis HLA-B27 ANTIGEN Routine 07/17/2025 12:31 PM EST Raised antibody titer Dorsalgia Psoriasis CBC AND DIFFERENTIAL Routine 07/17/2025 12:31 PM EST Raised antibody titer Dorsalgia Psoriasis C3 COMPLEMENT Routine 07/17/2025 12:31 PM EST Raised antibody titer Dorsalgia Psoriasis MAU IFA WITH TITER AND PATTERN Routine 07/17/2025 12:31 PM EST Raised antibody titer Dorsalgia Psoriasis CYCLIC CITRULLINATED PEPTIDE, IGG AND IGA Routine 07/17/2025 12:31 PM EST Raised antibody titer Dorsalgia Psoriasis HOME SLEEP TEST Routine 07/11/2025 9:15 AM EST Morbid obesity (CMS/HCC V24, CMS/HCC V28) MUSCULOSKELETAL ULTRASOUND Routine 07/03/2025 6:36 PM EST [...] 05/25/2025 8:39 AM EDT Urinary (tract) obstruction CT LUNG SCREENING Routine 04/14/2025 10: 57 [...] Recently Relevant to Health Maintenance Results * XR Hand 3+ Views bilat (07/17/2025 1:23 PM EST) Anatomical Region Laterality Modality Upper Extremities, Hand Bilateral Radiogra phic Imaging 07/18/2025 7:59 AM EST Impressions 07/18/2025 8:07 AM EST No acute abnormalities. Mild arthritic changes predominantly involving the distal IP joints bilaterally. Pattern most likely related to osteoarthritis. -------- FINAL REPORT -------- Dictated By: Triston Osborne Dictated Date: 07/18/2025 07:59 ET Assigned Physician: Triston Osborne Reviewed and Electronically Signed By: Triston Osborne Signed Date: 07/18/2025 08:07 ET Workstation ID: [id number] Transcribed By: Self Edit Transcribed Date: 07/18/2025 07:59 ET Narrative 07/18/2025 8:07 AM EST EXAMINATION: RIGHT WRIST RIGHT HAND LEFT WRIST LEFT HAND CLINICAL INFORMATION: Pain COMPARISON: None. TECHNIQUE: 3 views right wrist 3 views left wrist 3 views right hand 3 views left hand FINDINGS: There is no acute fracture or subluxation. No suspicious focal bony lesion. No aggressive periosteal new bone formation. MINERALIZATION: Normal. ALIGNMENT: Normal. SOFT TISSUE CALCIFICATIONS: None. JOINT SPACES: The radiocarpal, intercarpal and carpal metacarpal joints are maintained bilaterally. There is mild narrowing of the PIP and DIP joints bilaterally. OSTEOPHYTES: No significant osteophytes. There is mild sclerosis of the MCP joints bilaterally. CYSTS/EROSIONS: There is minimal cystic/erosive change involving the right lunate and the radial aspect of the right greater multangular. There is a minimal cyst or erosion involving the radial aspect of the base of the left first metacarpal. There are minimal periarticular erosive changes involving the second through fifth left PIP joints and possibly the right second third and fourth DIP joints. SOFT TISSUE SWELLING: None. OTHER: None. Procedure Note Triston Osborne MD - 07/18/2025 EXAMINATION: RIGHT WRIST RIGHT HAND LEFT WRIST LEFT HAND CLINICAL INFORMATION: Pain COMPARISON: None. TECHNIQUE: 3 views right wrist 3 views left wrist 3 views right hand 3 views left hand FINDINGS: There is no acute fracture or subluxation. No suspicious focal bonylesion. No aggressive periosteal new bone formation. MINERALIZATION: Normal. ALIGNMENT: Normal. SOFT TISSUE CALCIFICATIONS: None. JOINT SPACES: The radiocarpal, intercarpal and carpal metacarpal jointsare maintained bilaterally. There is mild narrowing of the PIP and DIP joints bilaterally. OSTEOPHYTES: No significant osteophytes. There is mild sclerosis of theMCP joints bilaterally. CYSTS/EROSIONS: There is minimal cystic/erosive change involving the rightlunate and the radial aspect of the right greater multangular. There is aminimal cyst or erosion involving the radial aspect of the base of theleft first metacarpal. There are minimal periarticular erosive changesinvolving the second through fifth left PIP joints and possibly the rightsecond third and fourth DIP joints. SOFT TISSUE SWELLING: None. OTHER: None. IMPRESSION: No acute abnormalities. Mild arthritic changes predominantly involving thedistal IP joints bilaterally. Pattern most likely related toosteoarthritis. -------- FINAL REPORT -------- Dictated By: Triston Osborne Dictated Date: 07/18/2025 07:59 ET Assigned Physician: Triston Osborne Reviewed and Electronically Signed By: Triston Osborne Signed Date: 07/18/2025 08:07 ET Workstation ID: [id number] Transcribed By: Self Edit Transcribed Date: 07/18/2025 07:59 ET Aline Jay [facility] IMG XR PROCEDURES Final Re sult * XR Wrist 3+ Views bilat (07/17/2025 1:23 PM EST) Anatomical Region Laterality Modality Upper Extremities, Wrist Bilateral Radiogr aphic Imaging 07/18/2025 7:59 AM EST Impressions 07/18/2025 8:07 AM EST No acute abnormalities. Mild arthritic changes predominantly involving the distal IP joints bilaterally. Pattern most likely related to osteoarthritis. -------- FINAL REPORT -------- Dictated By: Triston Osborne Dictated Date: 07/18/2025 07:59 ET Assigned Physician: Triston Osborne Reviewed and Electronically Signed By: Triston Osborne Signed Date: 07/18/2025 08:07 ET Workstation ID: [id number] Transcribed By: Self Edit Transcribed Date: 07/18/2025 07:59 ET Narrative 07/18/2025 8:07 AM EST EXAMINATION: RIGHT WRIST RIGHT HAND LEFT WRIST LEFT HAND CLINICAL INFORMATION: Pain COMPARISON: None. TECHNIQUE: 3 views right wrist 3 views left wrist 3 views right hand 3 views left hand FINDINGS: There is no acute fracture or subluxation. No suspicious focal bony lesion. No aggressive periosteal new bone formation. MINERALIZATION: Normal. ALIGNMENT: Normal. SOFT TISSUE CALCIFICATIONS: None. JOINT SPACES: The radiocarpal, intercarpal and carpal metacarpal joints are maintained bilaterally. There is mild narrowing of the PIP and DIP joints bilaterally. OSTEOPHYTES: No significant osteophytes. There is mild sclerosis of the MCP joints bilaterally. CYSTS/EROSIONS: There is minimal cystic/erosive change involving the right lunate and the radial aspect of the right greater multangular. There is a minimal cyst or erosion involving the radial aspect of the base of the left first metacarpal. There are minimal periarticular erosive changes involving the second through fifth left PIP joints and possibly the right second third and fourth DIP joints. SOFT TISSUE SWELLING: None. OTHER: None. Procedure Note Triston Osborne MD - 07/18/2025 EXAMINATION: RIGHT WRIST RIGHT HAND LEFT WRIST LEFT HAND CLINICAL INFORMATION: Pain COMPARISON: None. TECHNIQUE: 3 views right wrist 3 views left wrist 3 views right hand 3 views left hand FINDINGS: There is no acute fracture or subluxation. No suspicious focal bonylesion. No aggressive periosteal new bone formation. MINERALIZATION: Normal. ALIGNMENT: Normal. SOFT TISSUE CALCIFICATIONS: None. JOINT SPACES: The radiocarpal, intercarpal and carpal metacarpal jointsare maintained bilaterally. There is mild narrowing of the PIP and DIP joints bilaterally. OSTEOPHYTES: No significant osteophytes. There is mild sclerosis of theMCP joints bilaterally. CYSTS/EROSIONS: There is minimal cystic/erosive change involving the rightlunate and the radial aspect of the right greater multangular. There is aminimal cyst or erosion involving the radial aspect of the base of theleft first metacarpal. There are minimal periarticular erosive changesinvolving the second through fifth left PIP joints and possibly the rightsecond third and fourth DIP joints. SOFT TISSUE SWELLING: None. OTHER: None. IMPRESSION: No acute abnormalities. Mild arthritic changes predominantly involving thedistal IP joints bilaterally. Pattern most likely related toosteoarthritis. -------- FINAL REPORT -------- Dictated By: Triston Osborne Dictated Date: 07/18/2025 07:59 ET Assigned Physician: Triston Osborne Reviewed and Electronically Signed By: Triston Osborne Signed Date: 07/18/2025 08:07 ET Workstation ID: [id number] Transcribed By: Self Edit Transcribed Date: 07/18/2025 07:59 ET Aline Jay CNM IMG XR PROCEDURES Final Re sult * Cyclic citrullinated peptide, IgG and IgA (07/17/2025 12:31 PM EST) Pathologist [facility] CCP AB Quant 11 <20 Units LAB CHEMISTRY METHOD 07/18/2025 11:05 AM [facility] Cyclic Citrullinated Peptide (CCP) Antibody Negative Negative LAB CHEMISTRY METHOD 07/18/2025 11:05 AM [facility] Blood Venous blood specimen / Unknown Venipuncture / Unknown 07/17/2025 12:31 PM EST 07/17/2025 1:07 PM EST us Pcp Unknown Physician LAB BLOOD ORDERABLES Final Result [facility] [address] [place] [address], [place] [phone] * MAU IFA with titer and pattern (07/17/2025 12:31 PM EST) [facility] MAU Negative Negative 07/18/2025 12:38 PM EST [facility] Comment:MAU performed by ind irect immunofluorescence (IFA) using HEp-2 substrate. Blood Venous blood specimen / Unknown Venipuncture / Unknown 07/17/2025 12:31 PM EST 07/17/2025 1:07 PM EST us Pcp Unknown Physician LAB BLOOD ORDERABLES Final Result [facility] [address] [place] [address], [place] [phone] * CBC auto differential (07/17/2025 12:31 PM EST) Only the most recent of3 resultswithin the time period is included. [facility] WBC 5.1 4.8 - 10.8 K/[facility] LAB HEMETOLOGY METHOD 07/17/2025 1:48 PM [facility] RBC 4.00 3.80 - 4.80 M/[facility] LAB HEMETOLOGY METHOD 07/17/2025 1:48 PM [facility] Hemoglobin 12.7 11.5 - 16.0 g/dL LAB HEMETOLOGY METHOD 07/17/2025 1:48 PM [facility] Hematocrit 37.3 35.0 - 47.0 % LAB HEMETOLOGY METHOD 07/17/2025 1:48 PM [facility] MCV 93.0 79.0 - 98.0 FL LAB HEMETOLOGY METHOD 07/17/2025 1:48 PM [facility] MCH 31.7 27.0 - 32.0 pcg LAB HEMETOLOGY METHOD 07/17/2025 1:48 PM [facility] MCHC 34.0 32.0 - 37.0 g/dL LAB HEMETOLOGY METHOD 07/17/2025 1:48 PM [facility] RDW 13.8 11.0 - 15.0 % LAB HEMETOLOGY METHOD 07/17/2025 1:48 PM [facility] Platelets 189 130 - 400 K/mcL LAB HEMETOLOGY METHOD 07/17/2025 1:48 PM [facility] MPV 11.0 7.0 - 11.0 FL LAB HEMETOLOGY METHOD 07/17/2025 1:48 PM [facility] NRBC 0.0 <1.0 % LAB HEMETOLOGY METHOD 07/17/2025 1:48 PM [facility] NRBC Absolute 0.00 <0.10 K/mcL LAB HEMETOLOGY METHOD 07/17/2025 1:48 PM [facility] Neutrophils Relative 47.6 % LAB HEMETOLOGY METHOD 07/17/2025 1:48 PM [facility] Lymphocytes Relative 39.8 % LAB HEMETOLOGY METHOD 07/17/2025 1:48 PM [facility] Monocytes Relative 9.2 % LAB HEMETOLOGY METHOD 07/17/2025 1:48 PM [facility] Eosinophils Relative 2.0 % LAB HEMETOLOGY METHOD 07/17/2025 1:48 PM [facility] Basophils Relative 0.8 % LAB HEMETOLOGY METHOD 07/17/2025 1:48 PM [facility] Immature Granulocytes Relative 0.6 % LAB HEMETOLOGY METHOD 07/17/2025 1:48 PM EST [facility] Neutrophils Absolute 2.44 1.50 - 7.00 K/mcL LAB HEMETOLOGY METHOD 07/17/2025 1:48 PM [facility] Lymphocytes Absolute 2.04 1.00 - 5.00 K/mcL LAB HEMETOLOGY METHOD 07/17/2025 1:48 PM [facility] Monocytes Absolute 0.47 0.20 - 1.00 K/mcL LAB HEMETOLOGY METHOD 07/17/2025 1:48 PM [facility] Eosinophils Absolute 0.10 0.00 - 0.50 K/mcL LAB HEMETOLOGY METHOD 07/17/2025 1:48 PM [facility] Basophils Absolute 0.04 0.00 - 0.20 K/mcL LAB HEMETOLOGY METHOD 07/17/2025 1:48 PM [facility] Immature Granulocytes Absolute 0.03 0.00 - 0.03 K/mcL LAB HEMETOLOGY METHOD 07/17/2025 1:48 PM [facility] Blood Venous blood specimen / Unknown Venipuncture / Unknown 07/17/2025 12:31 PM EST 07/17/2025 1:07 PM EST us Pcp Unknown Physician LAB BLOOD ORDERABLES Final Result [facility] [address] [place] [address], * HLA-B27 antigen (07/17/2025 12:31 PM EST) HLA-B27 Comment SEEBELOW 07/20/2025 11:45 AM EST [facility] Comment: Rare false-positive HLA-B27 results can occur due to cross-reactivity with HLA-B7; therefore, we recommend all positive results be confirmed by an alternative and more specific method (molecular typing). HLA B27 NEGATIVE 07/20/2025 11:45 AM EST [facility] Comment: Test performed at [facility], [address] , [place], [place] [id number] Blood Venous blood specimen / Unknown Venipuncture / Unknown 07/17/2025 12:31 PM EST 07/17/2025 1:07 PM EST us Pcp Unknown Physician LAB MOLECULAR DIAGNOSTICS ORDERABLES Final Result Performing Organization Address City/[facility]/ZIP Co de Phone Number [facility] [address] [place] [address] * DNA antibody, double-stranded (07/17/2025 12:31 PM EST) Pathologist [facility] Anti-DNA Double Stranded Antibody LAB CHEMISTRY METHOD 07/20/2025 6:42 AM EST [facility] ds DNA Ab LAB CHEMISTRY METHOD 07/20/2025 6:42 AM EST [facility] Comment:Anti-dsDNA test not indicated when MAU is negative. Blood Venous blood specimen / Unknown Venipuncture / Unknown 07/17/2025 12:31 PM EST 07/17/2025 1:07 PM EST us Pcp Unknown Physician LAB BLOOD ORDERABLES Final Result [facility] [address] [place] [address], * Sedimentation rate (07/17/2025 12:31 PM EST) Pathologist [facility] Sed Rate 8 0 - 30 mm/hr LAB HEMETOLOGY METHOD 07/17/2025 2:05 PM EST [facility] Blood Venous blood specimen / Unknown Venipuncture / Unknown 07/17/2025 12:31 PM EST 07/17/2025 1:07 PM EST us Pcp Unknown Physician LAB BLOOD ORDERABLES Final Result Performing Organization Address City/[facility]/ZIP Co de Phone Number [facility] [address] [place] [address], [place] [phone] * (ABNORMAL) Rheumatoid factor (07/17/2025 12:31 PM EST) Rheumatoid Factor 21.2(H) <15.0 I Unit/mL 07/17/2025 3:23 PM EST [facility] Blood Venous blood specimen / Unknown Venipuncture / Unknown 07/17/2025 12:31 PM EST 07/17/2025 1:07 PM EST us Pcp Unknown Physician LAB BLOOD ORDERABLES Final Result Performing Organization Address City/[facility]/ZIP Co de Phone Number [facility] [address] [place] [address], [place] [phone] * C3 complement (07/17/2025 12:31 PM EST) C3 Complement 104 88 - 201 mg/dL 07/17/2025 3:23 PM EST [facility] Blood Venous blood specimen / Unknown Venipuncture / Unknown 07/17/2025 12:31 PM EST 07/17/2025 1:07 PM EST us Pcp Unknown Physician LAB BLOOD ORDERABLES Final Result Performing Organization Address City/[facility]/ZIP Co de Phone Number [facility] [address] [place] [address], [place] [phone] * C4 complement (07/17/2025 12:31 PM EST) C4 Complement 20 16 - 47 mg/dL 07/17/2025 3:23 PM EST [facility] Blood Venous blood specimen / Unknown Venipuncture / Unknown 07/17/2025 12:31 PM EST 07/17/2025 1:07 PM EST us Pcp Unknown Physician LAB BLOOD ORDERABLES Final Result Performing Organization Address City/[facility]/ZIP Co de Phone Number [facility] [address] [place] [address], [place] [phone] * C-reactive protein (07/17/2025 12:31 PM EST) [facility] C-Reactive Protein <0.50 <=0.50 mg/dL 07/17/2025 4:06 PM [facility] Blood Venous blood specimen / Unknown Venipuncture / Unknown 07/17/2025 12:31 PM EST 07/17/2025 1:07 PM EST us Pcp Unknown Physician LAB BLOOD ORDERABLES Final Result Performing Organization Address City/[facility]/ZIP Co de Phone Number [facility] [address] [place] [address], [place] [phone] * (ABNORMAL) Comprehensive metabolic panel (07/17/2025 12:31 PM EST) Only the most recent of2 resultswithin the time period is included. [facility] Sodium 139 133 - 145 mmol/L 07/17/2025 3:23 PM [facility] Potassium 4.4 3.5 - 5.5 mmol/L 07/17/2025 3:23 PM [facility] Chloride 109 96 - 110 mmol/L 07/17/2025 3:23 PM [facility] CO2 20(L) 21 - 32 mmol/L 07/17/2025 3:23 PM [facility] Anion Gap 10 3 - 11 07/17/2025 3:23 PM [facility] Glucose 94 70 - 100 mg/dL 07/17/2025 3:23 PM [facility] BUN 24 5 - 25 mg/dL 07/17/2025 3:23 PM [facility] Creatinine 1.48(H) 0.50 - 1.10 mg/dL 07/17/2025 3:23 PM [facility] eGFR 39(L) >=60 mL/min/1. 73m2 07/17/2025 3:23 PM [facility] Comment:Calculation based on the Chronic Kidney Disease Epidemiology Collaboration (CKD-EPI) equation refit without adjustment for race. BUN/Creatinine Ratio 16.2 07/17/2025 3:23 PM [facility] Calcium 8.2(L) 8.5 - 10.5 mg/dL 07/17/2025 3:23 PM [facility] AST (SGOT) 19 10 - 42 unit/L 07/17/2025 3:23 PM [facility] ALT (SGPT) 19 10 - 60 unit/L 07/17/2025 3:23 PM [facility] Alkaline Phosphatase 98 42 - 121 unit/L 07/17/2025 3:23 PM [facility] Total Protein 6.8 6.0 - 8.0 g/dL 07/17/2025 3:23 PM [facility] Albumin 4.3 3.2 - 5.0 g/dL 07/17/2025 3:23 PM [facility] Total Bilirubin 0.5 0.0 - 1.4 mg/dL 07/17/2025 3:23 PM [facility] Blood Venous blood specimen / Unknown Venipuncture / Unknown 07/17/2025 12:31 PM EST 07/17/2025 1:07 PM EST us Pcp Unknown Physician LAB BLOOD ORDERABLES Final Result [facility] [address] [facility] [place] [address], [place] [phone] * Home sleep test (07/11/2025 9:15 AM EST) us Courtney Whitfield MD SLEEP CENTER ORDERABLES Shira l Result * MUSCULOSKELETAL ULTRASOUND (07/03/2025 6:36 PM EST) Narrative Eugene Wells MD - 07/03/2025 6:36 PM EST Eugene [...] left hip or femur fracture. Telerad LEONEL ([id number]) -------- FINAL REPORT -------- Dictated By: Sharmaine So Dictated Date: 06/28/2025 16:17 ET Assigned Physician: Sharmaine So Reviewed and Electronically Signed By: Sharmaine So Signed Date: 06/28/2025 16:19 ET Workstation ID: [id number] Transcribed By: Self Edit Transcribed Date: 06/28/2025 [...] left hip or femur fracture. Telerad PA ([id number]) -------- FINAL REPORT -------- Dictated By: Sharmaine So Dictated Date: 06/28/2025 16:17 ET Assigned Physician: Sharmaine So Reviewed and Electronically Signed By: Sharmaine So Signed Date: 06/28/2025 16:19 ET Workstation ID: [id number] Transcribed By: Self Edit Transcribed Date: 06/28/2025 16:17 ET us Eugene Wells MD IMG XR PROCEDURES Final Res ult * XR Hip 2-3 Views Left (06/28/2025 3:49 PM EST) Anatomical Region Laterality Modality Lower Extremities, Hip Left Radiograp hic Imaging 06/28/2025 4:17 PM EST Impressions 06/28/2025 4:19 PM EST Impression: No evidence of left hip or femur fracture. Telerad PA ([id number]) -------- FINAL REPORT -------- Dictated By: Sharmaine So Dictated Date: 06/28/2025 16:17 ET Assigned Physician: Sharmaine So Reviewed and Electronically Signed By: Sharmaine So Signed Date: 06/28/2025 16:19 ET Workstation ID: [id number] Transcribed By: Self Edit Transcribed Date: 06/28/2025 [...] evidence of left hip or femur fracture. Jase CASTANEDA ([id number]) -------- FINAL REPORT -------- Dictated By: Sharmaine So Dictated Date: 06/28/2025 16:17 ET Assigned Physician: Sharmaine So Reviewed and Electronically Signed By: Sharmaine So Signed Date: 06/28/2025 16:19 ET Workstation ID: [id number] Transcribed By: Self Edit Transcribed Date: 06/28/2025 16:17 ET us Eugene Wells MD IMG XR PROCEDURES Final Res ult * XR Chest 2 Views (06/28/2025 3:49 PM EST) Anatomical Region Laterality Modality Body Radiographic Tavia ging 06/28/2025 4:15 PM EST Impressions 06/28/2025 4:20 PM EST No acute findings. -------- FINAL REPORT -------- Dictated By: Hipolito Riley Dictated Date: 06/28/2025 16:15 ET Assigned Physician: Hipolito Riley Reviewed and Electronically Signed By: Hipolito Riley Signed Date: 06/28/2025 16:20 ET Workstation ID: [id number] Transcribed By: Self Edit Transcribed Date: 06/28/2025 [...] Signed Date: 06/28/2025 16:20 ET Workstation ID: [id number] Transcribed By: Self Edit Transcribed Date: 06/28/2025 16:15 ET us Eugene Wells MD IMG XR [...] Signed Date: 06/28/2025 14:49 ET Workstation ID: [id number] Transcribed By: Self Edit Transcribed Date: 06/28/2025 [...] Signed Date: 06/28/2025 14:49 ET Workstation ID: [id number] Transcribed By: Self Edit Transcribed Date: 06/28/2025 14:46 ET Eugene Wells MD IMG CT PROCEDURES Final Res ult * CT [...] Signed Date: 06/28/2025 14:45 ET Workstation ID: [id number] Transcribed By: Self Edit Transcribed Date: 06/28/2025 [...] Signed Date: 06/28/2025 14:45 ET Workstation ID: [id number] Transcribed By: Self Edit Transcribed Date: 06/28/2025 14:43 ET Eugene Wells MD IMG CT PROCEDURES Final [...] Signed Date: 06/16/2025 13:28 ET Workstation ID: [id number] Transcribed By: Self Edit Transcribed Date: 06/16/2025 [...] Signed Date: 06/16/2025 13:28 ET Workstation ID: [id number] Transcribed By: Self Edit Transcribed Date: 06/16/2025 13:27 ET Jordan CASTANEDA IMG XR PROCEDURES Final Result * Urinalysis with reflex microscopic and culture (06/16/2025 12:29 PM EST) Only the most recent of2 resultswithin the time period is included. Specific [place] Urine 1.020 1.003 - 1.030 LAB URINALYSIS - AUTOMATED METHOD 06/16/2025 2:51 PM EST [facility] pH, Urine 6.5 5.0 - 8.0 pH LAB URINALYSIS - AUTOMATED METHOD 06/16/2025 2:51 PM [facility] Leukocytes, Urine Negative Negative LAB URINALYSIS - AUTOMATED METHOD 06/16/2025 2:51 PM [facility] Nitrite, Urine Negative Negative LAB URINALYSIS - AUTOMATED METHOD 06/16/2025 2:51 PM [facility] Protein, Urine Negative <=Trace mg/dL LAB URINALYSIS - AUTOMATED METHOD 06/16/2025 2:51 PM [facility] Glucose, Urine Negative Negative mg/dL LAB URINALYSIS - AUTOMATED METHOD 06/16/2025 2:51 PM [facility] Ketones, Urine Negative Negative mg/dL LAB URINALYSIS - AUTOMATED METHOD 06/16/2025 2:51 PM [facility] Urobilinogen, Urine 1.0 0.2 - 1.0 mg/dL LAB URINALYSIS - AUTOMATED METHOD 06/16/2025 2:51 PM [facility] Bilirubin, Urine Negative Negative LAB URINALYSIS - AUTOMATED METHOD 06/16/2025 2:51 PM [facility] Blood, Urine Negative Negative LAB URINALYSIS - AUTOMATED METHOD 06/16/2025 2:51 PM [facility] Urine Urine specimen obtained by clean catch procedure / Unknown Non-blood Collection / Unknown 06/16/2025 12:29 PM EST 06/16/2025 12:29 PM EST us Jordan CASTANEDA LAB URINE ORDERABLES Final Res ult [facility] [address] [place] [address], * Arevalo urine culture tube (06/16/2025 12:29 PM EST) Only the most recent of2 resultswithin the time period is included. Pathologist [facility] Extra Tube Hold for add-ons. 06/16/2025 6:01 PM EST [facility] Comment:Auto resulted. Urine Urine specimen obtained by clean catch procedure / Unknown Non-blood Collection / Unknown 06/16/2025 12:29 PM EST 06/16/2025 12:29 PM EST Jordan CASTANEDA LAB URINE ORDERABLES Final Res ult [facility] [address] [place] [address], [place] [phone] * Pulmonary function testing: Carbon Monoxide Diffusing [...] capacity for which clinical correlation is recommended. Courtney Whitfield MD PFT ORDERABLES Final Result * Lipid panel with reflex to direct LDL (05/25/2025 8:39 AM EDT) [facility] Cholesterol 134 0 - 200 mg/dL LAB CHEMISTRY METHOD 05/25/2025 12:50 PM EDT [facility] Triglycerides 108 0 - 150 mg/dL LAB CHEMISTRY METHOD 05/25/2025 12:50 PM EDT [facility] HDL 67 >=40 mg/dL LAB CHEMISTRY METHOD 05/25/2025 12:50 PM EDT [facility] LDL Calculated 45 0 - 100 mg/dL LAB CHEMISTRY METHOD 05/25/2025 12:50 PM EDT [facility] Comment:Estimated LDL Calcul ated using equation: Total cholesterol - HDL cholesterol - (Triglycerides/5) VLDL Cholesterol Martin 21.6 mg/dL LAB CHEMISTRY METHOD 05/25/2025 12:50 PM EDT [facility] Non HDL Chol. (LDL+VLDL) 67 <145 mg/dL LAB CHEMISTRY METHOD 05/25/2025 12:50 PM EDT [facility] Chol/HDL Ratio 2.0 0.0 - 4.4 LAB CHEMISTRY METHOD 05/25/2025 12:50 PM EDT [facility] Blood Venous blood specimen / Unknown Venipuncture / Unknown 05/25/2025 8:39 AM EDT 05/25/2025 8:39 AM EDT us Marlin Valdez MD LAB BLOOD ORDERABL ES Final Result [facility] [address] [place] [address], [place] [phone] * CT Lung Screening (04/14/2025 10:57 AM [...] Signed Date: 04/25/2025 14:34 ET Workstation ID: [id number] Transcribed By: Self Edit Transcribed Date: 04/25/2025 14:19 ET Narrative 04/25/2025 2:34 PM EDT EXAMINATION: CT CHEST WITHOUT CONTRAST LUNG CANCER SCREENING, LOW DOSE CLINICAL INFORMATION: Lung cancer screening. Former smoker. COMPARISON: Portions of previous 04/13/24 TECHNIQUE: Multidetector CT. Examination of the chest. Examination of the chest without IV contrast. Reformatting in the coronal and sagittal planes. Device: Playboox DLP: 177 mGy-cm CTDI: 4.89 Dose optimization [...] the coronal and sagittal planes. Device: Revolution Knott DLP: 177 mGy-cm CTDI: 4.89 Dose optimization [...] Signed Date: 04/25/2025 14:34 ET Workstation ID: [id number] Transcribed By: Self Edit Transcribed Date: 04/25/2025 14:19 ET Trino Dooley MD IM CT PROCEDURES Final Result * COLONOSCOPY Anesthesia - MAC; [facility] ENDOSCOPY (12/21/2024 11:37 AM EDT) Anatomical [...] pathology results. Narrative 12/21/2024 11:36 AM EDT [facility] Patient Name: Enriqueta Ordaz Procedure Date: 12/21/2024 11:13 AM Date of : 1955 Age: 69 Gender: Female Note Status: Finalized Attending MD: Jeff Salazar DO, [id number] Procedure Date No Time: 12/21/2024 Procedure: Colonoscopy [...] the physician, the nurse, the anesthesiologist, the florist helper and the health information technician in the pre-procedure area in the [...] retroflexion views. Procedure Code(s): --- Professional --- 08047, Colonoscopy, flexible; with removal of tumor(s), polyp(s), or other lesion(s) by snare technique 66758, 59, Colonoscopy, flexible; with biopsy, single or multiple Diagnosis Code(s): --- Professional --- Z12.11, Encounter for screening for malignant neoplasm of colon K64.9, Unspecified hemorrhoids D12.5, Benign neoplasm of sigmoid colon D12.3, Benign neoplasm of transverse colon (hepatic flexure or splenic flexure) D12.2, Benign neoplasm of ascending colon CPT copyright 2020 [employer]. All rights reserved. The codes documented in this report are preliminary and upon remote medical coder review may be revised to meet current compliance requirements. JEFF Salazar DO 12/21/2024 11:36:48 AM This report has been signed electronically.Jeff Salazar DO Number of Addenda: 0 Note Initiated On: 12/21/2024 11:13 AM Scope Withdrawal Time: 0 hours 7 minutes 20 seconds Scope In: 11:21:02 AM Scope Out: 11:35:07 AM Endoscopy Department at [facility] - [address] [place] [phone] Procedure Note Jeff Salazar DO - 12/21/2024 [facility] Patient Name: Enriqueta Ordaz Procedure Date: 12/21/2024 11:13 AM Date of : 1955 Age: 69 Gender: Female Note Status: Finalized Attending MD: Jeff Salazar DO, [id number] Procedure Date No Time: 12/21/2024 Procedure: Colonoscopy [...] the physician, the nurse, the anesthesiologist, the florist helper and thetechnician in the pre-procedure area in [...] retroflexion views. Procedure Code(s): --- Professional --- 19883, Colonoscopy, flexible; with removal of tumor(s), polyp(s), or other lesion(s) by snare technique 11655, 59, Colonoscopy, flexible; with biopsy,single or multiple Diagnosis Code(s): --- Professional --- Z12.11, Encounter for screening for malignantneoplasm of colon K64.9, Unspecified hemorrhoids D12.5, Benign neoplasm of sigmoid colon D12.3, Benign neoplasm of transverse colon (hepatic flexure or splenic flexure) D12.2, Benign neoplasm of ascending colon CPT copyright 2020 [employer]. All rights reserved. The codes documented in this report are preliminary and upon remote medical coder reviewmay be revised to meet current compliance requirements. JEFF Salazar DO 12/21/2024 11:36:48 AM This report has been signed electronically.Jeff Salazar DO Number of Addenda: 0 Note Initiated On: 12/21/2024 11:13 AM Scope Withdrawal Time: 0 hours 7 minutes 20 seconds Scope In: 11:21:02 AM Scope Out: 11:35:07 AM Endoscopy Department at [facility] - [address] [place] [phone] IMPRESSION: - Hemorrhoids found on perianal exam. [...] Most Recently Relevant to Health Maintenance Insurance Member Subscriber Plan / Payer (Ef fective 2022-Present) Name:Anastasiia Ordaznica Relation to Subscriber:Self Name:Enriqueta Ordaz Payer ID:[id number] Group ID:[id number] Type:Not on file Address: [place] [address] [address] [phone] Advance Directives Documents on File Type Date Recorded Patient Associate Account Director Expl anation Advance Directives and Living Will 04/28/2025 9:27 AM Enriqueta Walters Health Care Proxy Healthcare Agents on File Name Relationship Healthcare Agent Relationship Communication Enriqueta Bro Daughter Health Care Agent Care Teams Trumpet Player Relationship Specialty Start Date End Date Marlin Valdez MD [address] [place] [phone] PCP - General Internal Medicine 06/10/24
--- OUTSIDE RECORDS SUMMARY | 2025-07-31 15:36 | XMS_ITS | Encounter Summary ---
Author Organization [facility] [place] [address] Care Team Providers Care Relief Map Modeler Name Role Phone Marlin Valdez MD Primary Care Prov ider Encounter Details Date Type Department Care Team (Late st Contact Info) Description 06/16/2025 Results Follow-Up Adult Medicine - [place] [address] [place] [phone] Jordan Arredondo PA [address] [place] [address] Social History Tobacco Use Types Packs/Day Years [...] for your loved ones. For example, child neurologist or elderly care for an older adult? [...] 10:45 AM EST Office Visit Pulmonology - [place] [address] [facility] [address] [place] [phone] Tamika Chandler MD [address] [place] [phone] 08/24/2025 4:00 PM EST Office Visit [facility] [place] [address] [facility] [address] [place] [phone] Chanda Ashley MD [address] [place] [address] 11/16/2025 1:30 PM EDT Office Visit Adult Medicine - [place] [address] [place] [phone] Jordan Arredondo PA [address] [place] [address] documented as of this encounter Visit Diagnoses Not on filedocumented in this encounter Additional Health Concerns Assessment Noted Time PHQ-9 Depression Total Score: 0 06/16/20 25 11:26 AM EST documented as of this encounter Care Teams Relief Map Modeler Relationship Specialty Start Date End Date Marlin Valdez MD [address] [place] [address] PCP - General Internal Medicine 06/10/24 documented as of this encounter
== END 2025-07-31 13:14 | disposition home or self-care (01) ==
LOC: HO.RHES 12:22
PROVIDERS: PCP Internal Medicine; Visit Provider Student in an Organized Health Care Education/Training Program
DX: L40.9 Psoriasis, unspecified (principal); M54.50 Low back pain, unspecified; G89.29 Other chronic pain; M25.559 Pain in unspecified hip; M13.80 Other specified arthritis, unspecified site
CPT/HCPCS: 99214; G2211

== ENCOUNTER 2025-07-31 12:22 | Outpatient (REF) | payer OTHER, SELFPAY | END 2025-07-31 12:23 | disposition home or self-care (01) | LOC: HO.HKASLDS 12:22 | PROVIDERS: PCP Internal Medicine; Visit Provider Student in an Organized Health Care Education/Training Program | DX: G89.29 Other chronic pain (principal); M13.80 Other specified arthritis, unspecified site; L40.9 Psoriasis, unspecified; M54.50 Low back pain, unspecified; M25.559 Pain in unspecified hip; Z79.899 Other long term (current) drug therapy | CPT/HCPCS: 99212 ==